=== PATIENT | female | born 1960 | race Caucasian/White ===

== ENCOUNTER 2018-01-18 23:02 | Inpatient (IN) | payer MEDICARE, OTHER ==
[2018-01-18] MEDS ORDERED: NORMAL SALINE 500 ML IV ONE (23:21)
[2018-01-18] MEDS ORDERED: HYDROMORPHONE HCL INJ/PF 2 MG/ML AMPULE IV ONE (23:21)
[2018-01-18] MEDS ORDERED: ONDANSETRON HCL INJ/PF 4 MG/2 ML SDV IV ONE (23:21)
--- NOTE | 2018-01-18 23:24 | ER Document Report ---
ED General - General Chief Complaint: Vomiting Stated Complaint: ABDOMINAL PAIN Time Seen by Provider: 01/18/18 23:13 Notes: Patient is 57-year-old female who presents with complaint of abdominal pain for approximately 1 week. She is followed by Dr. Flanagan's primary care doctor locally. Her GI doctors in [place]. She has history of Crohn's disease. She has a history of some internal fistulas. She does have a ileostomy. She denies recent fevers but has felt unwell. Today she started having a lot of vomiting. She is currently on Septra because of her history of fistulas. She denies any blood in her ostomy bag. She has pain is mostly epigastric. She says that it is intermittent. No other complaints at this time. TRAVEL OUTSIDE OF THE [place] IN LAST 30 DAYS: No - Related Data Allergies/Adverse Reactions: No Known Drug Allergies Allergy (Verified 11/21/11 09:36) Past Medical History - Social History Smoking Status: Unknown if Ever Smoked Frequency of alcohol use: None Drug Abuse: None Family History: None, Reviewed & Not Pertinent Pulmonary Medical History: Denies: Hx Tuberculosis Neurological Medical History: Denies: Hx Seizures GI Medical History: Reports: Hx Crohn's Disease Past Surgical History: Reports: Hx Abdominal Surgery, Hx Bowel Surgery, Hx Cholecystectomy, Hx Hysterectomy - total, Hx Ileostomy. Denies: Hx Pacemaker - Immunizations Hx Diphtheria, Pertussis, Tetanus Vaccination: Yes Review of Systems - Review of Systems Notes: My Normal Review Basic REVIEW OF SYSTEMS: CONSTITUTIONAL : Denies fever, chills, or sweats. Denies recent illness. EENT: Denies eye, ear, throat, or mouth pain or symptoms. Denies nasal or sinus congestion. CARDIOVASCULAR: Denies chest pain. RESPIRATORY: Denies cough, cold, or chest congestion. Denies shortness of breath, difficulty breathing, or wheezing. GASTROINTESTINAL: Abdominal pain. Vomiting. GENITOURINARY: Denies difficulty urinating, painful urination, burning, frequency, or blood in urine. MUSCULOSKELETAL: Denies neck or back pain or joint pain or swelling. SKIN: Denies rash or skin lesions. NEUROLOGICAL: Denies altered mental status or loss of consciousness. Denies headache. Denies weakness or paralysis or loss of use of either side. Denies problems with gait or speech. Denies sensory or motor loss. ALL OTHER SYSTEMS REVIEWED AND NEGATIVE. Physical Exam - Vital signs Vitals: Resp 17 01/19/18 01:00 - Notes Notes: General Appearance: Well nourished, alert, cooperative, no acute distress, mild to moderate obvious discomfort. Vitals: reviewed, See vital signs table. Head: no swelling or tenderness to the head Eyes: PERRL, EOMI, Conjuctiva clear Mouth: No decreasd moisture Lungs: No wheezing, No rales, No rhonci, No accessory muscle use, good air exchange bilaterally. Heart: Normal rate, Regular rythm, No murmur, no rub Abdomen: Normal BS, soft, No rigidity, mild epigastric abdominal tenderness outpatient, No guarding, no rebound, ileostomy bag in left lower quadrant. Normal brown stool coming from ileostomy. No gross blood in ileostomy bag. Extremities: strength 5/5 in all extremities, good pulses in all extremities, no swelling or tenderness in the extremities, no edema. Skin: warm, dry, appropriate color, no rash Neuro: speech clear, oriented x 3, normal affect, responds appropriately to questions. Course - Re-evaluation Re-evalutation: 01/19/18 03:02 On reevaluation patient says she feels much improved. She looks well. She says she does not have any further pain and no longer feels nauseous. Her CT scan shows evidence of a small bowel ileus versus partial incomplete obstruction. I think obstruction is less likely being the patient was able to tolerate all her oral contrast and continues to have good output from her ostomy. 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 She does not have a leukocytosis. Biggest concern at this time is that she does have significant hyponatremia with some renal sufficiency. I therefore feel that she needs admission for further rehydration and correction of her sodium. I did speak with the patient's primary care doctor, Dr. Flanagan, who agrees with the patient but requested also put in a consult for surgery. I have ordered a consult for surgery. Currently the patient's abdomen is soft and she is no longer vomiting. Patient will be admitted to Dr. Flanagan with consult surgery as he requested. Dictation of this chart was performed using voice recognition software; therefore, there may be some unintended grammatical errors. - Vital Signs Vital signs: Temp Pulse Resp BP Pulse Ox 23 H 120/78 96 01/19/18 01:12 01/19/18 01:12 01/19/18 01:12 - Laboratory Result Diagrams: 01/18/18 22:35 01/18/18 22:35 Laboratory results interpreted by me: 01/18/18 01/18/18 22:35 22:35 RBC 3.35 L Hct 33.1 L MCV 99 H MCH 36.0 H MCHC 36.5 H RDW 17.5 H Plt Count 617 H Seg Neuts % (Manual) 95 H Lymphocytes % (Manual) 2 L Abs Lymphs (Manual) 0.2 L Sodium 121.2 L Potassium 5.1 H Chloride 76 L BUN 36 H Creatinine 2.15 H Est GFR ( Amer) 28 L Est GFR (Non-Af Amer) 23 L Glucose 213 H Calcium 10.5 H Total Protein 8.5 H Albumin 5.3 H Lipase 303.7 H Discharge - Discharge Clinical Impression: Hyponatremia Abdominal pain Qualifiers: Abdominal location: unspecified location Qualified Code(s): R10.9 - Unspecified abdominal pain Vomiting Qualifiers: Vomiting type: unspecified Vomiting Intractability: non-intractable Nausea presence: with nausea Qualified Code(s): R11.2 - Nausea with vomiting, unspecified Condition: Stable Disposition: ADMITTED INPATIENT Admitting Provider: Flanagan Unit Admitted: Telemetry
[2018-01-18 23:39] LABS: HEMATOCRIT 33.1 % (36.0-47.0); HEMOGLOBIN 12.1 g/dL (12.0-15.5); MEAN CORPUSCULAR HGB CONC 36.5 g/dL (32.0-36.0); MEAN CORPUSCULAR VOLUME 99 fl (80-97); PLATELET COUNT 617 10^3/uL (150-450); RED BLOOD COUNT 3.35 10^6/uL (3.72-5.28); RED CELL DISTRIBUTION WIDTH 17.5 % (11.5-14.0); WHITE BLOOD COUNT 7.9 10^3/uL (4.0-10.5)
[2018-01-18 23:50] LABS: ALANINE AMINOTRANSFERASE 29 U/L (9-52); ALBUMIN 5.3 g/dL (3.5-5.0); ALKALINE PHOSPHATASE 63 U/L (38-126); ANION GAP 19 (5-19); ASPARTATE AMINO TRANSFERASE 27 U/L (14-36); BILIRUBIN,DIRECT 0.3 mg/dL (0.0-0.4); BILIRUBIN,TOTAL 0.5 mg/dL (0.2-1.3); BLOOD UREA NITROGEN 36 mg/dL (7-20); CALCIUM 10.5 mg/dL (8.4-10.2); CARBON DIOXIDE 26 mmol/L (22-30); CHLORIDE 76 mmol/L (98-107); GLUCOSE 213 mg/dL (75-110); LIPASE 303.7 U/L (23-300); POTASSIUM 5.1 mmol/L (3.6-5.0); TOTAL PROTEIN 8.5 g/dL (6.3-8.2)
[2018-01-19 00:05] LABS: SODIUM 121.2 mmol/L (137-145)
[2018-01-19 00:22] LABS: ABSOLUTE LYMPHOCYTES# (MANUAL) 0.2 10^3/uL (0.5-4.7); ABSOLUTE MONOCYTES # (MANUAL) 0.2 10^3/uL (0.1-1.4); ABSOLUTE NEUTROPHILS# (MANUAL) 7.5 10^3/uL (1.7-8.2); BASOPHILS % (MANUAL) 0 % (0-2); EOSINOPHILS % (MANUAL) 0 % (0-6); LYMPHOCYTES % (MANUAL) 2 % (13-45); MONOCYTES % (MANUAL) 3 % (3-13); SEGMENTED NEUTROPHILS % (MAN) 95 % (42-78); TOTAL CELLS COUNTED 100; TOXIC GRANULATION SLIGHT
[2018-01-19 00:24] LABS: ANISOCYTOSIS 1+
[2018-01-19 00:26] LABS: POLYCHROMASIA SLIGHT
[2018-01-19 00:28] LABS: PLATELET COMMENT INCREASED; PLATELET LARGE PRESENT
--- NOTE | 2018-01-19 02:50 | RADIOLOGY REPORT (SQ) ---
EXAM DESCRIPTION: CT ABD/PELVIS WITH IV ORAL CLINICAL HISTORY: 57 years Female, abdominal pain with history of fistulas and crohns COMPARISON: None. TECHNIQUE: 69 mL Isovue-370 IV contrast. Coronal and sagittal reformat. This exam was performed according to our departmental dose-optimization program, which includes automated exposure control, adjustment of the mA and/or kV according to patient size and/or use of iterative reconstruction technique. Limitation: As below. FINDINGS: Fistula and/or scar between the colon and skin post posterior to the rectum, images 57-65 of series 3. Nonopacified bowel in the pelvis decreases sensitivity-specificity. Mildly dilated small bowel with air-fluid levels in the left paracentral abdomen. Possible adhesive disease of small bowel density anterior lower abdominal and pelvic wall. Bowel suture of the mid pelvis and left paracentral abdomen. Ostomy site of the left paracentral pelvic wall. Minimal bibasal atelectasis or scar. Cholecystectomy clips. Atherosclerosis. Likely benign bilateral renal cysts measuring up to 2.7 cm on the left. Moderately distended urinary bladder. Uterus surgically absent. Inferior thorax, liver, pancreas, spleen, adrenals, renal system, lymphatics, vasculature, and musculoskeleton appear otherwise unremarkable. IMPRESSION: 1. Enterocutaneous fistula/scar of the posterior pelvis. 2. Small bowel ileus or low-grade partial obstruction. Adhesive disease. Partial colectomy.
[2018-01-19] MEDS ORDERED: ACETAMINOPHEN 325 MG TABLET PO PRN (03:09)
--- NOTE | 2018-01-19 04:13 | PDOC CONSULTATION ---
Consultation Consult Date: 01/19/18 Attending physician:: NUPUR COTE Consult reason:: ileus History of Present Illness Admission Date/PCP: 01/19/18 03:13 NUPUR COTE MD History of Present Illness: ROQUE MULLER is a 57 year old female with long history of Crohn's Disease has been dizzy in the past weak and very weak with nausea past 3 days. Ileostomy also has clear diarrheic fluid past week. She is post colon resection and [facility] Also had bx of left lay-anal fistula at [facility] last Aug which was + for Crohn's. This is still drauning and has a follow up at [facility] February 17. Had a CT scan of abd/pelvis which showed ileus though ileostomy has been draining. Past Medical History Pulmonary Medical History: Denies: Tuberculosis Neurological Medical History: Denies: Seizures GI Medical History: Reports: Crohn's Disease Past Surgical History Past Surgical History: Reports: Cholecystectomy, Hysterectomy - total, Ileostomy , Other - colostomy in 2004 then colon resection and ileostomy in 2012 at [facility] Denies: Pacemaker Social History Smoking Status: Current Every Day Smoker Cigarettes Packs Per Day: 0.5 Frequency of Alcohol Use: Rare Hx Recreational Drug Use: No Hx Prescription Drug Abuse: No Family History Family History: None, Reviewed & Not Pertinent Parental Family History Reviewed: Yes Children Family History Reviewed: No Sibling(s) Family History Reviewed.: No Medication/Allergy Home Medications: Sertraline HCl [Zoloft] 50 mg PO DAILY 09/17/11 Loperamide HCl [Loperamide] 2 mg PO Q12 11/21/11 Mercaptopurine 50 mg PO DAILY 11/21/11 Flonase Nasal [place] 50 Mcg/[place] 1 spray NASL BID 11/23/11 Sodium Bicarbonate 650 mg Tablet 1 tab PO BID 11/23/11 Hydrocodone/Acetaminophen [Hydrocodon-Acetaminophen 5-325] 1 each PO Q4 PRN #15 tablet 08/02/16 Ciprofloxacin HCl [Cipro 500 mg Tablet] 500 mg PO BID #20 tablet 08/05/16 Hydrocodone/Acetaminophen [[place] 5-325 mg Tablet] 1 tab PO Q6 #10 tablet Nystatin 15 gm TP QID #1 cream..g. 08/21/16 Oxycodone HCl/Acetaminophen [Percocet 5-325 mg Tablet] 1 - 2 tab PO Q4H PRN #15 tablet 08/21/16 Allergies/Adverse Reactions: No Known Drug Allergies Allergy (Verified 11/21/11 09:36) Review of Systems Constitutional: PRESENT: anorexia, weakness Eyes: PRESENT: other - no visual/hearing canges Cardiovascular: PRESENT: other - no chest pains/cough Gastrointestinal: PRESENT: nausea Genitourinary: PRESENT: other - no dysuria Musculoskeletal: PRESENT: muscle weakness Integumentary: PRESENT: wounds - anal fistula/sinus Neurological: PRESENT: dizziness Psychiatric: PRESENT: anxiety Endocrine: PRESENT: other - no polyuria Hematologic/Lymphatic: PRESENT: other - no easy bruising Physical Exam Vital Signs: Temp Pulse Resp BP Pulse Ox 23 H 120/78 96 01/19/18 01:12 01/19/18 01:12 01/19/18 01:12 General appearance: PRESENT: thin Head exam: PRESENT: atraumatic, normocephalic Eye exam: PRESENT: conjunctiva pink Mouth exam: PRESENT: dry mucosa Neck exam: PRESENT: full ROM Respiratory exam: PRESENT: clear to auscultation quita Cardiovascular exam: PRESENT: RRR Pulses: PRESENT: normal radial pulses Vascular exam: PRESENT: normal capillary refill GI/Abdominal exam: PRESENT: soft, other - ileostomy appears to be functioning Rectal exam: PRESENT: other - rectum resected. Has a chronic draining sinus due to Chron's which is being followed at [facility] Psychiatric exam: PRESENT: appropriate affect Skin exam: PRESENT: normal color, warm Results Impressions: Abdomen/Pelvis CT 01/18/18 23:20 IMPRESSION: 1. Enterocutaneous fistula/scar of the posterior pelvis. 2. Small bowel ileus or low-grade partial obstruction. Adhesive disease. Partial colectomy. Assessment & Plan - Diagnosis (1) Ileus Is this a current diagnosis for this admission?: Yes (2) Chronic perirectal sinus Is this a current diagnosis for this admission?: Yes - Time Time Spent: 30 to 50 Minutes - Plan Summary Plan Summary: Correct electrolytes Ileostomy appears to be functioning Can start clear liquids and advance as tolerated Will follow as needed
[2018-01-19] MEDS ORDERED: INFLUENZA ADLT QUAD (36MOS+) 2017-18 VAC 0.5 ML SYR IM PRN (05:13)
[2018-01-19] MEDS: NORMAL SALINE 1000 ML 1,000 ML IV PRN ×3 (05:28→16:13)
[2018-01-19] MEDS: ONDANSETRON HCL INJ/PF 4 MG/2 ML SDV IV PRN ×3 (05:28→22:00)
[2018-01-19 05:50] LABS: URINE CREATININE 68.6 mg/dL (15-278)
[2018-01-19 06:12] LABS: URINE SODIUM < 5 mmol/L (30-90)
[2018-01-19] MEDS: HYDROMORPHONE HCL INJ/PF 2 MG/ML AMPULE IV PRN ×2 (06:30→20:28)
[2018-01-19] MEDS ORDERED: CIPROFLOXACIN 400 MG/D5W RTU 400 MG/200 ML RTUPB IV ONE (09:00)
--- NOTE | 2018-01-19 10:50 | PDOC H&P ---
History of Present Illness Admission Date/PCP: 01/19/18 03:13 NUPUR COTE MD Patient complains of: Abdominal pain nausea vomiting History of Present Illness: This 57-year-old females with a significant history of the Crohn's disease with the rectovaginal fistula and multiple evaluation done including the patient was surgery performed at the [facility] patient seen by the locally Dr. Ceballos also seen by Dr. Mahmood the [facility]And [facility] and recurrent urinary tract infections who ileostomy bagCame to the emergency department with the nausea vomiting and abdominal pain and patient underwent for the CT abdomen pelvis with psoas the ileus versus partial obstructions and patient's sodium is only 120 I saw the patient in the floor patients feeling better but still been feeling dizzy when she patients move patient's abdominal pain is currently all stable Patient's denied any chest pain denied any shortness of the breath Patient seen by general surgery and suggest the start on a clear liquid diet Past Medical History Cardiac Medical History: Reports: Hypertension Pulmonary Medical History: Denies: Tuberculosis Neurological Medical History: Denies: Seizures Renal/ Medical History: Reports: Chronic Kidney Disease GI Medical History: Reports: Crohn's Disease, Gastroesophageal Reflux Disease Psychiatric Medical History: Reports: Depression Past Surgical History Past Surgical History: Reports: Cholecystectomy, Hysterectomy - total, Ileostomy , Other - colostomy in 2004 then colon resection and ileostomy in 2012 at [place] Denies: Pacemaker Social History Smoking Status: Current Every Day Smoker Cigarettes Packs Per Day: 0.5 Number of Years Smokin Frequency of Alcohol Use: None Hx Recreational Drug Use: No Drugs: None Hx Prescription Drug Abuse: No Family History Family History: None, Reviewed & Not Pertinent Parental Family History Reviewed: Yes Children Family History Reviewed: Yes Sibling(s) Family History Reviewed.: Yes Medication/Allergy Allergies/Adverse Reactions: No Known Drug Allergies Allergy (Verified 11/21/11 09:36) Review of Systems Constitutional: PRESENT: fatigue, weakness. ABSENT: chills, fever(s), headache( s), weight gain, weight loss Eyes: ABSENT: visual disturbances Ears: ABSENT: hearing changes Cardiovascular: ABSENT: chest pain, dyspnea on exertion, edema, orthropnea, palpitations Respiratory: ABSENT: cough, hemoptysis Gastrointestinal: PRESENT: abdominal pain, nausea, vomiting. ABSENT: constipation, diarrhea, hematemesis, hematochezia Genitourinary: ABSENT: dysuria, hematuria Musculoskeletal: ABSENT: joint swelling Integumentary: ABSENT: rash, wounds Neurological: PRESENT: dizziness. ABSENT: abnormal gait, abnormal speech, confusion, focal weakness, syncope Psychiatric: ABSENT: anxiety, depression, homidical ideation, suicidal ideation Endocrine: ABSENT: cold intolerance, heat intolerance, menstrual abnormalities, polydipsia, polyuria Hematologic/Lymphatic: ABSENT: easy bleeding, easy bruising, lymphadenopathy Physical Exam Vital Signs: Temp Pulse Resp BP Pulse Ox 98.7 F 75 18 97/73 L 99 01/19/18 07:14 01/19/18 07:14 01/19/18 07:14 01/19/18 07:14 01/19/18 07:14 Intake & Output 01/18/18 01/19/18 01/20/18 06:59 06:59 06:59 Intake Total 100 Balance 100 Weight 57.6 kg General appearance: PRESENT: no acute distress, well-developed, well-nourished Head exam: PRESENT: atraumatic, normocephalic Eye exam: PRESENT: conjunctiva pink, EOMI, PERRLA. ABSENT: scleral icterus Ear exam: PRESENT: normal external ear exam Mouth exam: PRESENT: moist, tongue midline Neck exam: PRESENT: full ROM. ABSENT: carotid bruit, JVD, lymphadenopathy, thyromegaly Respiratory exam: PRESENT: clear to auscultation quita Cardiovascular exam: PRESENT: RRR. ABSENT: diastolic murmur, rubs, systolic murmur Pulses: PRESENT: normal dorsalis pedis pul, +2 pedal pulses bilateral Vascular exam: PRESENT: normal capillary refill GI/Abdominal exam: PRESENT: normal bowel sounds, soft. ABSENT: distended, guarding, mass, organolmegaly, rebound, tenderness Additonal comments: Ileostomy bag is functioning Rectal exam: PRESENT: deferred Extremities exam: ABSENT: pedal edema Musculoskeletal exam: PRESENT: ambulatory Neurological exam: PRESENT: alert, awake, oriented to person, oriented to place , oriented to time, oriented to situation, CN II-XII grossly intact. ABSENT: motor sensory deficit Psychiatric exam: PRESENT: appropriate affect, normal mood. ABSENT: homicidal ideation, suicidal ideation Skin exam: PRESENT: dry, intact, warm. ABSENT: cyanosis, rash Results Laboratory Results: 01/19/18 01/19/18 03:46 08:20 Urine Osmolality 291 L Stool Occult Blood POSITIVE Impressions: Abdomen/Pelvis CT 01/18/18 23:20 IMPRESSION: 1. Enterocutaneous fistula/scar of the posterior pelvis. 2. Small bowel ileus or low-grade partial obstruction. Adhesive disease. Partial colectomy. Assessment & Plan - Diagnosis (1) Abdominal pain Qualifiers: Abdominal location: unspecified location Qualified Code(s): R10.9 - Unspecified abdominal pain Is this a current diagnosis for this admission?: Yes Plan: With this ongoing problem we consult the general surgery with this possible partial small bowel obstructions versus ileus and also consult the GI for further evaluations will keep the patient on n.p.o. (2) Crohns disease Qualifiers: Digestive disease complication type: with fistula Is this a current diagnosis for this admission?: Yes Plan: We will consult the Dr. Coombs used to see the patient in the past (3) Rectovaginal fistula Is this a current diagnosis for this admission?: Yes Plan: Patient have extensive evaluations done currently see her Dr. Mahmood and also seen by the [facility] (4) Acute renal failure Qualifiers: Acute renal failure type: unspecified Qualified Code(s): N17.9 - Acute kidney failure, unspecified Is this a current diagnosis for this admission?: Yes Plan: We consulted Dr. Blanchard continues IV fluid (5) Hyponatremia Is this a current diagnosis for this admission?: Yes Plan: Most likely a persistent nausea vomiting with some mild dehydration's start the patient on IV fluid (6) Ileus Is this a current diagnosis for this admission?: Yes Plan: Keep her n.p.o. and follow with the surgery (7) Vomiting Qualifiers: Vomiting type: unspecified Vomiting Intractability: non-intractable Nausea presence: with nausea Qualified Code(s): R11.2 - Nausea with vomiting, unspecified Is this a current diagnosis for this admission?: Yes Plan: Continuous Zofran as needed - Time Time Spent: 30 to 50 Minutes Medications reviewed and adjusted accordingly: Yes Anticipated discharge: Home Within: Other - Inpatient Certification Medical Necessity: Need Close Monitoring Due to Risk of Patient Decompensation, Need For IV Fluids, Need for IV Antibiotics Post Hospital Care: D/C Manager Analysis Documentation - Plan Summary Plan Summary: Admit the telemetry bed discussed with the patient and the nursing staff see other MD orders
[2018-01-19] MEDS: PANTOPRAZOLE SODIUM 40 MG VIAL IV SCH ×2 (10:58→21:59)
[2018-01-19] MEDS: ENOXAPARIN SODIUM INJ 30 MG/0.3 ML DISP.SYRIN SUBCUT SCH (10:59)
[2018-01-19 12:09] LABS: ANION GAP 12 (5-19); BLOOD UREA NITROGEN 29 mg/dL (7-20); CALCIUM 9.4 mg/dL (8.4-10.2); CARBON DIOXIDE 26 mmol/L (22-30); CHLORIDE 87 mmol/L (98-107); GLUCOSE 111 mg/dL (75-110); SODIUM 124.6 mmol/L (137-145)
[2018-01-19 12:25] LABS: POTASSIUM 3.8 mmol/L (3.6-5.0)
--- NOTE | 2018-01-19 15:10 | PDOC CONSULTATION ---
Consultation Consult Date: 01/19/18 Consult reason:: ARF History of Present Illness Admission Date/PCP: 01/19/18 03:13 NUPUR COTE MD Patient complains of: Diarrhea for a week History of Present Illness: Ms. Massiel Yancey is a 57 year old female with significant history of the Crohn's disease with the rectovaginal fistula and multiple evaluation done including the patient was surgery performed at the [place] patient seen by the locally Dr. Coombs and also seen by Dr. Mahmood the FISH BAIT PROCESSING SUPERVISOR. Recently seen by Dr. lópez at the [facility] with ongoing problems with this fistula and recurrent urinary tract infections. Has a ileostomy bag due to the Crohn's. Came to the emergency department after having a week long of watery diarrhea with nausea x2 days, vomiting once and abdominal pain. She has been drinking some water over the past few days, but has not been eating well. In the ER the patient underwent a CT of abdomen pelvis with psoas the ileus versus partial obstructions. No hydronephrosis was seen. Patient's labs show a sodium of only 121 and a creatinine of 2.1. Patient was seen by general surgery and suggest to start on a clear liquid diet. She also has been receiving NS at a rate of 125mL/h. Last repeat sodium was 124, potassium was 3.8 and creatinine was 1.7. She currently denies fevers or chills. Denies decreased decreased urination, was having burning urination until being treated outpatient for a UTI. Past Medical History Pulmonary Medical History: Denies: Tuberculosis Neurological Medical History: Denies: Seizures GI Medical History: Reports: Crohn's Disease, Gastroesophageal Reflux Disease Psychiatric Medical History: Reports: Depression Past Surgical History Past Surgical History: Reports: Cholecystectomy, Hysterectomy - total, Ileostomy , Other - colostomy in 2004 then colon resection and ileostomy in 2013 at [facility] Denies: Pacemaker Social History Smoking Status: Current Every Day Smoker Cigarettes Packs Per Day: 0.5 Number of Years Smokin Frequency of Alcohol Use: None Hx Recreational Drug Use: No Drugs: None Hx Prescription Drug Abuse: No Family History Parental Family History Reviewed: No Children Family History Reviewed: NA Sibling(s) Family History Reviewed.: NA Medication/Allergy Home Medications: Cephalexin [Cephalexin 250 MG Tablet] 250 mg PO DAILY 01/19/18 Cyanocobalamin (Vitamin B-12) [Vitamin B-12] 1,000 mcg PO DAILY 01/19/18 L. Acidophilus/Pectin, [place] [Acidophilus Probiotic Capsule] 1 cap PO DAILY 04/03 Loperamide HCl [Loperamide] 2 mg PO DAILY 01/19/18 Mercaptopurine 75 mg PO DAILY 01/19/18 Multivit-Min/Iron/Folic/Lutein [Centrum Silver Women Tablet] 1 tab PO DAILY 04/03 Ondansetron HCl [Zofran] 4 mg PO Q6HP PRN 01/19/18 Sulfamethoxazole/Trimethoprim [Sulfamethoxazole-Tmp Ds Tablet] 1 tab PO DAILY Allergies/Adverse Reactions: No Known Drug Allergies Allergy (Verified 11/21/11 09:36) Review of Systems Constitutional: ABSENT: chills, fever(s), headache(s), weakness Eyes: ABSENT: visual disturbances Cardiovascular: ABSENT: chest pain, dyspnea on exertion, edema, orthropnea, palpitations Respiratory: ABSENT: cough, dyspnea, sputum Gastrointestinal: PRESENT: abdominal pain, diarrhea, melena, nausea, vomiting. ABSENT: constipation Genitourinary: ABSENT: difficulty urinating, dysuria Musculoskeletal: ABSENT: joint swelling, muscle weakness Neurological: ABSENT: confusion - ffffffffffffffffffffffffffff, dizziness, numbness, weakness Physical Exam Vital Signs: Temp Pulse Resp BP Pulse Ox 98.7 F 75 18 97/73 L 99 01/19/18 07:14 01/19/18 07:14 01/19/18 07:14 01/19/18 07:14 01/19/18 07:14 Intake & Output 01/18/18 01/19/18 01/20/18 06:59 06:59 06:59 Intake Total 100 Balance 100 Weight 57.6 kg General appearance: PRESENT: no acute distress, well-developed, well-nourished Mouth exam: PRESENT: moist, neck supple Neck exam: PRESENT: full ROM. ABSENT: JVD Respiratory exam: PRESENT: clear to auscultation quita. ABSENT: accessory muscle use, crackles, rales, rhonchi Cardiovascular exam: PRESENT: RRR, +S1, +S2 GI/Abdominal exam: PRESENT: hyperactive bowel sounds, soft, tenderness. ABSENT : ascites, distended, guarding, rigid Extremities exam: ABSENT: pedal edema, tenderness Musculoskeletal exam: PRESENT: normal inspection. ABSENT: tenderness Neurological exam: PRESENT: alert, awake, oriented to person, oriented to place , oriented to time, oriented to situation Psychiatric exam: PRESENT: appropriate affect, normal mood Skin exam: PRESENT: dry, intact, warm Results Laboratory Results: 01/19/18 11:40 01/19/18 01/19/18 01/19/18 03:46 08:20 11:40 Sodium 124.6 L Potassium 3.8 D Chloride 87 L Carbon Dioxide 26 Anion Gap 12 BUN 29 H Creatinine 1.74 H Est GFR ( Amer) 36 L Est GFR (Non-Af Amer) 30 L Glucose 111 H Calcium 9.4 Urine Osmolality 291 L Stool Occult Blood POSITIVE Impressions: Abdomen/Pelvis CT 01/18/18 23:20 IMPRESSION: 1. Enterocutaneous fistula/scar of the posterior pelvis. 2. Small bowel ileus or low-grade partial obstruction. Adhesive disease. Partial colectomy. Assessment & Plan - Diagnosis (1) ALEX (acute kidney injury) Plan: Non-oliguric ALEX, due to dehydration from the persistant diarrhea for a week. Other factors affecting the kidneys includes recurrent UTIs and antibiotic use. With the Ct of the abdomen/pelvis post-obstructive can be ruled out. renal system was normal according to Dr. Tripathi's reading of the abdominal/pelvic CT. Ordering magnesium to look for hypomagnesemia due to diarrhea. (2) Hyponatremia Is this a current diagnosis for this admission?: Yes Plan: Looks to be due to persistent diarrhea with some vomiting. Continue on normal saline, patient needs to be corrected at a rate no faster than 8 to 10mEQ of sodium per a 24 hours. Monitoring BMP closely (3) Abdominal pain Qualifiers: Abdominal location: unspecified location Qualified Code(s): R10.9 - Unspecified abdominal pain Is this a current diagnosis for this admission?: Yes Plan: currently being handled by surgery (4) CKD (chronic kidney disease) stage 3, GFR 30-59 ml/min Plan: was last seen in Dr. Blanchard office 04/01. Had a baseline creatinine at the time of 1.1. (5) Ileus Is this a current diagnosis for this admission?: Yes Plan: managed by surgery (6) Vomiting Qualifiers: Vomiting type: unspecified Vomiting Intractability: non-intractable Nausea presence: with nausea Qualified Code(s): R11.2 - Nausea with vomiting, unspecified Is this a current diagnosis for this admission?: Yes Plan: on corrine (7) Crohns disease Qualifiers: Digestive disease complication type: with fistula Is this a current diagnosis for this admission?: Yes - Notes Notes: Patients case and care plan was discussed with Dr. Blanchard.
[2018-01-19 16:24] LABS: ANION GAP 13 (5-19); BLOOD UREA NITROGEN 27 mg/dL (7-20); CALCIUM 9.3 mg/dL (8.4-10.2); CARBON DIOXIDE 25 mmol/L (22-30); CHLORIDE 88 mmol/L (98-107); GLUCOSE 104 mg/dL (75-110); SODIUM 125.5 mmol/L (137-145)
[2018-01-19] MEDS: CIPROFLOXACIN 400 MG/D5W RTU 400 MG/200 ML RTUPB IV SCH (22:00)
[2018-01-20] MEDS: NORMAL SALINE 1000 ML 1,000 ML IV PRN ×2 (02:15→12:09)
[2018-01-20 06:25] LABS: HEMATOCRIT 26.2 % (36.0-47.0); MEAN CORPUSCULAR HGB CONC 36.2 g/dL (32.0-36.0); MEAN CORPUSCULAR VOLUME 100 fl (80-97); PLATELET COUNT 404 10^3/uL (150-450); RED BLOOD COUNT 2.63 10^6/uL (3.72-5.28); RED CELL DISTRIBUTION WIDTH 17.4 % (11.5-14.0); WHITE BLOOD COUNT 5.4 10^3/uL (4.0-10.5)
[2018-01-20 06:26] LABS: HEMOGLOBIN 9.5 g/dL (12.0-15.5)
[2018-01-20 06:30] LABS: ALANINE AMINOTRANSFERASE 32 U/L (9-52); ALBUMIN 3.7 g/dL (3.5-5.0); ALKALINE PHOSPHATASE 47 U/L (38-126); ANION GAP 10 (5-19); ASPARTATE AMINO TRANSFERASE 22 U/L (14-36); BILIRUBIN,DIRECT 0.1 mg/dL (0.0-0.4); BILIRUBIN,TOTAL 0.3 mg/dL (0.2-1.3); BLOOD UREA NITROGEN 20 mg/dL (7-20); CALCIUM 8.9 mg/dL (8.4-10.2); CARBON DIOXIDE 22 mmol/L (22-30); CHLORIDE 96 mmol/L (98-107); GLUCOSE 79 mg/dL (75-110); POTASSIUM 4.1 mmol/L (3.6-5.0); SODIUM 127.7 mmol/L (137-145); TOTAL PROTEIN 6.2 g/dL (6.3-8.2)
[2018-01-20 08:02] LABS: OSMOLALITY,URINE 273 mOsm/kg (300-900)
--- NOTE | 2018-01-20 08:54 | PDOC PROGRESS REPORT ---
Subjective Progress Note for:: 01/20/18 Subjective:: Patient is currently doing well patient's denied any chest pain denied any shortness of the breath Patient's abdominal pain is much better's to tolerate the clear liquid without any problems and passing the gas Reason For Visit: HYPONATREMIA/ARF/ILLEUS Physical Exam Vital Signs: Temp Pulse Resp BP Pulse Ox 98.5 F 73 17 110/72 100 01/20/18 07:19 01/20/18 07:19 01/20/18 07:19 01/20/18 07:19 01/20/18 07:19 Intake & Output 01/19/18 01/20/18 01/21/18 06:59 06:59 06:59 Intake Total 100 3880 Output Total 3 Balance 100 3877 Weight 57.6 kg General appearance: PRESENT: no acute distress, well-developed, well-nourished Head exam: PRESENT: atraumatic, normocephalic Eye exam: PRESENT: conjunctiva pink, EOMI, PERRLA. ABSENT: scleral icterus Ear exam: PRESENT: normal external ear exam Mouth exam: PRESENT: moist, tongue midline Neck exam: PRESENT: full ROM. ABSENT: carotid bruit, JVD, lymphadenopathy, thyromegaly Respiratory exam: PRESENT: clear to auscultation quita Cardiovascular exam: PRESENT: RRR. ABSENT: diastolic murmur, rubs, systolic murmur Pulses: PRESENT: normal dorsalis pedis pul, +2 pedal pulses bilateral Vascular exam: PRESENT: normal capillary refill GI/Abdominal exam: PRESENT: normal bowel sounds, soft. ABSENT: distended, guarding, mass, organolmegaly, rebound, tenderness Additonal comments: Ileostomy bag is present and functioning Rectal exam: PRESENT: deferred Extremities exam: ABSENT: pedal edema Musculoskeletal exam: PRESENT: ambulatory Neurological exam: PRESENT: alert, awake, oriented to person, oriented to place , oriented to time, oriented to situation, CN II-XII grossly intact. ABSENT: motor sensory deficit Psychiatric exam: PRESENT: appropriate affect, normal mood. ABSENT: homicidal ideation, suicidal ideation Skin exam: PRESENT: dry, intact, warm. ABSENT: cyanosis, rash Results Laboratory Results: 01/20/18 05:26 01/20/18 05:26 03/05/18 03/05/18 03/05/18 03:46 08:20 11:40 WBC RBC Hgb Hct MCV MCH MCHC RDW Plt Count Sodium 124.6 L Potassium 3.8 D Chloride 87 L Carbon Dioxide 26 Anion Gap 12 BUN 29 H Creatinine 1.74 H Est GFR ( Amer) 36 L Est GFR (Non-Af Amer) 30 L Glucose 111 H Calcium 9.4 Magnesium Total Bilirubin AST ALT Alkaline Phosphatase Total Protein Albumin Urine Osmolality 273 L Stool Occult Blood POSITIVE 01/19/18 01/19/18 01/20/18 11:40 15:57 05:26 WBC 5.4 RBC 2.63 L Hgb 9.5 L D Hct 26.2 L MCV 100 H MCH 36.0 H MCHC 36.2 H RDW 17.4 H Plt Count 404 Sodium 125.5 L Potassium 4.0 Chloride 88 L Carbon Dioxide 25 Anion Gap 13 BUN 27 H Creatinine 1.65 H Est GFR ( Amer) 39 L Est GFR (Non-Af Amer) 32 L Glucose 104 Calcium 9.3 Magnesium 1.9 Total Bilirubin AST ALT Alkaline Phosphatase Total Protein Albumin Urine Osmolality Stool Occult Blood 01/20/18 05:26 WBC RBC Hgb Hct MCV MCH MCHC RDW Plt Count Sodium 127.7 L Potassium 4.1 Chloride 96 L Carbon Dioxide 22 Anion Gap 10 BUN 20 Creatinine 1.30 H Est GFR ( Amer) 51 L Est GFR (Non-Af Amer) 42 L Glucose 79 Calcium 8.9 Magnesium Total Bilirubin 0.3 AST 22 ALT 32 Alkaline Phosphatase 47 Total Protein 6.2 L Albumin 3.7 Urine Osmolality Stool Occult Blood Impressions: Abdomen/Pelvis CT 01/18/18 23:20 IMPRESSION: 1. Enterocutaneous fistula/scar of the posterior pelvis. 2. Small bowel ileus or low-grade partial obstruction. Adhesive disease. Partial colectomy. Assessment & Plan - Diagnosis (1) Abdominal pain Qualifiers: Abdominal location: unspecified location Qualified Code(s): R10.9 - Unspecified abdominal pain Is this a current diagnosis for this admission?: Yes Plan: Currently all resolving the ileus (2) Crohns disease Qualifiers: Digestive disease complication type: with fistula Is this a current diagnosis for this admission?: Yes Plan: Will wait for the GI consultants (3) Rectovaginal fistula Is this a current diagnosis for this admission?: Yes Plan: Patient have extensive evaluations done currently see her Dr. Mahmood and also seen by the [facility] (4) Acute renal failure Qualifiers: Acute renal failure type: unspecified Qualified Code(s): N17.9 - Acute kidney failure, unspecified Is this a current diagnosis for this admission?: Yes Plan: Currently all improving (5) Hyponatremia Is this a current diagnosis for this admission?: Yes Plan: Currently all improving (6) Ileus Is this a current diagnosis for this admission?: Yes Plan: Advance to full liquid to soft diet (7) Vomiting Qualifiers: Vomiting type: unspecified Vomiting Intractability: non-intractable Nausea presence: with nausea Qualified Code(s): R11.2 - Nausea with vomiting, unspecified Is this a current diagnosis for this admission?: Yes Plan: Currently all resolved - Time Time Spent with patient: 15-24 minutes Medications reviewed and adjusted accordingly: Yes Anticipated discharge: Other Within: Other - Inpatient Certification Medical Necessity: Need Close Monitoring Due to Risk of Patient Decompensation Post Hospital Care: D/C Sweeping Compound Blender Documentation - Plan Summary Plan Summary: Currently all improving the ileus increase the diet
[2018-01-20] MEDS: CIPROFLOXACIN 400 MG/D5W RTU 400 MG/200 ML RTUPB IV SCH (09:28)
[2018-01-20] MEDS: PANTOPRAZOLE SODIUM 40 MG VIAL IV SCH ×2 (09:29→21:28)
[2018-01-20] MEDS: ENOXAPARIN SODIUM INJ 30 MG/0.3 ML DISP.SYRIN SUBCUT SCH (09:30)
[2018-01-20] MEDS: CYANOCOBALAMIN (VITAMIN B-12) 1,000 MCG TABLET PO SCH (10:26)
[2018-01-20] MEDS: LACTOBACILLUS ACIDOPHILUS 250 MG TAB PO SCH (10:27)
--- NOTE | 2018-01-20 10:31 | RADIOLOGY REPORT (SQ) ---
EXAM DESCRIPTION: ABDOMEN 2 VIEWS COMPLETED DATE/TIME: 01/20/2018 10:11 am REASON FOR STUDY: illeus COMPARISON: Abdominal and pelvic CT scan dated 01/19/2018 NUMBER OF VIEWS: Two views. TECHNIQUE: Supine and erect/decubitus radiographic images of the abdomen acquired. LIMITATIONS: None. FINDINGS: FREE AIR: None. No abnormal gas collections. LUNG BASES: Clear. BOWEL GAS PATTERN: Nonobstructive pattern. No dilated loops or air fluid levels. CALCIFICATIONS: No suspicious calcifications. SOFT TISSUES: No gross mass or suggestion of organomegaly. HARDWARE: Ostomy is identified in the left pelvis. Surgical clips are identified in the right mid ab domen. BONES: No acute fracture. No worrisome bone lesions. OTHER: No other significant finding. IMPRESSION: NO RADIOGRAPHIC EVIDENCE FOR ACUTE ABDOMINAL DISEASE. TECHNICAL DOCUMENTATION: JOB ID: [id number] [employer]- All Rights Reserved Reading location - IP/workstation name: [email or web address]
[2018-01-20] MEDS ORDERED: METHYLPREDNISOLONE INJ 40 MG/1 ML SDV IV ONE (12:30)
--- NOTE | 2018-01-20 13:53 | PDOC PROGRESS REPORT ---
Subjective Progress Note for:: 01/20/18 Reason For Visit: Was seen today.Admitted or partial bowel obstruction likely from adhesive disease and has responded very well to conservative management. Also admitting diagnosis included Orthostatic hypotension, ALEX, Hyponatremia. Her abdominal pain is resolved and she is tolerating some clear liquids as of this AM. Her Illeostomy bag is showing some formed elements. Labs and meds were reviewed with her. Physical Exam Vital Signs: Temp Pulse Resp BP Pulse Ox 98.4 F 76 17 128/67 H 96 01/20/18 11:03 01/20/18 11:03 01/20/18 11:03 01/20/18 11:03 01/20/18 11:03 Intake & Output 01/19/18 01/20/18 01/21/18 06:59 06:59 06:59 Intake Total 100 3880 Output Total 3 Balance 100 3877 Weight 57.6 kg General appearance: PRESENT: no acute distress Respiratory exam: PRESENT: clear to auscultation quita. ABSENT: crackles Cardiovascular exam: PRESENT: RRR, +S1, +S2 GI/Abdominal exam: PRESENT: normal bowel sounds, soft. ABSENT: ascites, distended, guarding, rigid, tenderness Extremities exam: ABSENT: pedal edema Neurological exam: PRESENT: awake, oriented to person, oriented to place Skin exam: PRESENT: dry. ABSENT: erythema, mottled Results Laboratory Results: 01/20/18 05:26 01/20/18 05:26 01/19/18 01/19/18 01/19/18 03:46 11:40 15:57 WBC RBC Hgb Hct MCV MCH MCHC RDW Plt Count Sodium 125.5 L Potassium 4.0 Chloride 88 L Carbon Dioxide 25 Anion Gap 13 BUN 27 H Creatinine 1.65 H Est GFR ( Amer) 39 L Est GFR (Non-Af Amer) 32 L Glucose 104 Calcium 9.3 Magnesium 1.9 Total Bilirubin AST ALT Alkaline Phosphatase Total Protein Albumin Urine Osmolality 273 L 01/20/18 01/20/18 05:26 05:26 WBC 5.4 RBC 2.63 L Hgb 9.5 L D Hct 26.2 L MCV 100 H MCH 36.0 H MCHC 36.2 H RDW 17.4 H Plt Count 404 Sodium 127.7 L Potassium 4.1 Chloride 96 L Carbon Dioxide 22 Anion Gap 10 BUN 20 Creatinine 1.30 H Est GFR ( Amer) 51 L Est GFR (Non-Af Amer) 42 L Glucose 79 Calcium 8.9 Magnesium Total Bilirubin 0.3 AST 22 ALT 32 Alkaline Phosphatase 47 Total Protein 6.2 L Albumin 3.7 Urine Osmolality Impressions: Abdomen/Pelvis CT 01/18/18 23:20 IMPRESSION: 1. Enterocutaneous fistula/scar of the posterior pelvis. 2. Small bowel ileus or low-grade partial obstruction. Adhesive disease. Partial colectomy. Abdomen X-Ray 01/20/18 00:00 IMPRESSION: NO RADIOGRAPHIC EVIDENCE FOR ACUTE ABDOMINAL DISEASE. Assessment & Plan - Diagnosis (1) Diarrhea Plan: From her partial bowel obstruction.Resolving. (2) ALEX (acute kidney injury) Plan: Resolving.She was clinically dehydrated. She has now been fluid resuscitated and her BP and her orthostasis are stable. Will continue on current management. (3) CKD (chronic kidney disease) stage 3, GFR 30-59 ml/min Plan: Base line.Monitor. (4) Hyponatremia Is this a current diagnosis for this admission?: Yes Plan: She is improving. Will change IV NS at 100 cc/hr. (5) Ileus Is this a current diagnosis for this admission?: Yes Plan: from partial bowel obstruction. Resolving.
[2018-01-20] MEDS: CEFTRIAXONE SODIUM 1,000 MG in NORMAL SALINE 100 ML IV SCH (17:11)
[2018-01-20] MEDS ORDERED: HYDROMORPHONE HCL 2 MG TABLET PO PRN (23:35)
[2018-01-21 05:13] LABS: ABSOLUTE EOSINOPHILS # (AUTO) 0.1 10^3/uL (0.0-0.6); ABSOLUTE LYMPHOCYTES (AUTO) 0.9 10^3/uL (0.5-4.7); ABSOLUTE MONOCYTES (AUTO) 0.4 10^3/uL (0.1-1.4); ABSOLUTE NEUT (AUTO) 4.5 10^3/uL (1.7-8.2); BASOPHILS % (AUTO) 0.4 % (0-2); EOSINOPHILS % (AUTO) 0.9 % (0-6); HEMATOCRIT 22.4 % (36.0-47.0); HEMOGLOBIN 8.1 g/dL (12.0-15.5); LYMPHOCYTES % (AUTO) 15.6 % (13-45); MEAN CORPUSCULAR HEMOGLOBIN 36.3 pg (27.0-33.4); MEAN CORPUSCULAR HGB CONC 36.1 g/dL (32.0-36.0); MEAN CORPUSCULAR VOLUME 101 fl (80-97); MONOCYTES % (AUTO) 6.3 % (3-13); PLATELET COUNT 370 10^3/uL (150-450); RED BLOOD COUNT 2.23 10^6/uL (3.72-5.28); RED CELL DISTRIBUTION WIDTH 17.4 % (11.5-14.0); SEGMENTED NEUTROPHILS % (AUTO) 76.8 % (42-78); TOTAL CELLS COUNTED % (AUTO) 100 %; WHITE BLOOD COUNT 5.9 10^3/uL (4.0-10.5)
[2018-01-21 05:28] LABS: ANION GAP 9 (5-19); BLOOD UREA NITROGEN 18 mg/dL (7-20); CALCIUM 8.6 mg/dL (8.4-10.2); CARBON DIOXIDE 20 mmol/L (22-30); CHLORIDE 104 mmol/L (98-107); GLUCOSE 77 mg/dL (75-110); POTASSIUM 4.4 mmol/L (3.6-5.0); SODIUM 132.6 mmol/L (137-145)
--- NOTE | 2018-01-21 09:55 | PDOC PROGRESS REPORT ---
Subjective Progress Note for:: 01/21/18 Subjective:: Patient is currently doing well Patient's denied any chest pain denied any shortness of the breath Patient hemoglobin is 8.1 Sodium is all stable Reason For Visit: HYPONATREMIA/ARF/ILLEUS Physical Exam Vital Signs: Temp Pulse Resp BP Pulse Ox 98.8 F 71 18 120/73 100 01/21/18 07:21 01/21/18 07:21 01/21/18 07:21 01/21/18 07:21 01/21/18 07:21 Intake & Output 01/20/18 01/21/18 01/22/18 06:59 06:59 06:59 Intake Total 3880 3875 Output Total 3 Balance 3877 3875 Weight 57.7 kg General appearance: PRESENT: no acute distress, well-developed, well-nourished Head exam: PRESENT: atraumatic, normocephalic Eye exam: PRESENT: conjunctiva pink, EOMI, PERRLA. ABSENT: scleral icterus Ear exam: PRESENT: normal external ear exam Mouth exam: PRESENT: moist, tongue midline Neck exam: PRESENT: full ROM. ABSENT: carotid bruit, JVD, lymphadenopathy, thyromegaly Respiratory exam: PRESENT: clear to auscultation quita Cardiovascular exam: PRESENT: RRR. ABSENT: diastolic murmur, rubs, systolic murmur Pulses: PRESENT: normal dorsalis pedis pul, +2 pedal pulses bilateral Vascular exam: PRESENT: normal capillary refill GI/Abdominal exam: PRESENT: normal bowel sounds, soft. ABSENT: distended, guarding, mass, organolmegaly, rebound, tenderness Rectal exam: PRESENT: deferred Extremities exam: ABSENT: pedal edema Neurological exam: PRESENT: alert, awake, oriented to person, oriented to place , oriented to time, oriented to situation, CN II-XII grossly intact. ABSENT: motor sensory deficit Psychiatric exam: PRESENT: appropriate affect, normal mood. ABSENT: homicidal ideation, suicidal ideation Skin exam: PRESENT: dry, intact, warm. ABSENT: cyanosis, rash Results Laboratory Results: 01/21/18 04:07 01/21/18 04:07 01/21/18 01/21/18 01/21/18 04:07 04:07 04:07 WBC 5.9 RBC 2.23 L Hgb 8.1 L Hct 22.4 L MCV 101 H MCH 36.3 H MCHC 36.1 H RDW 17.4 H Plt Count 370 Seg Neutrophils % 76.8 Lymphocytes % 15.6 Monocytes % 6.3 Eosinophils % 0.9 Basophils % 0.4 Absolute Neutrophils 4.5 Absolute Lymphocytes 0.9 Absolute Monocytes 0.4 Absolute Eosinophils 0.1 Absolute Basophils 0.0 Sodium 132.6 L Potassium 4.4 Chloride 104 Carbon Dioxide 20 L Anion Gap 9 BUN 18 Creatinine 1.07 Est GFR ( Amer) > 60 Est GFR (Non-Af Amer) 52 L Glucose 77 Serum Osmolality 275 Calcium 8.6 Impressions: Abdomen/Pelvis CT 01/18/18 23:20 IMPRESSION: 1. Enterocutaneous fistula/scar of the posterior pelvis. 2. Small bowel ileus or low-grade partial obstruction. Adhesive disease. Partial colectomy. Abdomen X-Ray 01/20/18 00:00 IMPRESSION: NO RADIOGRAPHIC EVIDENCE FOR ACUTE ABDOMINAL DISEASE. Assessment & Plan - Diagnosis (1) Abdominal pain Qualifiers: Abdominal location: unspecified location Qualified Code(s): R10.9 - Unspecified abdominal pain Is this a current diagnosis for this admission?: Yes Plan: Currently all better will watch for hemoglobin which is dropped from 12 to the 8.1 and guaiac stool is positive we will ask Dr. Coombs to further evaluate (2) Crohns disease Qualifiers: Digestive disease complication type: with fistula Is this a current diagnosis for this admission?: Yes Plan: Will wait for the GI consultants (3) Rectovaginal fistula Is this a current diagnosis for this admission?: Yes Plan: Patient have extensive evaluations done currently see her Dr. Mahmood and also seen by the [facility] (4) Acute renal failure Qualifiers: Acute renal failure type: unspecified Qualified Code(s): N17.9 - Acute kidney failure, unspecified Is this a current diagnosis for this admission?: Yes Plan: Currently all improving (5) Hyponatremia Is this a current diagnosis for this admission?: Yes Plan: Currently all improving (6) Ileus Is this a current diagnosis for this admission?: Yes Plan: Currently all resolved (7) Vomiting Qualifiers: Vomiting type: unspecified Vomiting Intractability: non-intractable Nausea presence: with nausea Qualified Code(s): R11.2 - Nausea with vomiting, unspecified Is this a current diagnosis for this admission?: Yes - Time Time Spent with patient: 15-24 minutes Medications reviewed and adjusted accordingly: Yes Anticipated discharge: Other Within: Other - Inpatient Certification Medical Necessity: Need Close Monitoring Due to Risk of Patient Decompensation Post Hospital Care: D/C Content Assistant Documentation - Plan Summary Plan Summary: Patients develop the Cipro allergies but okay with the Rocephin will ask Dr. Coombs to further evaluate about the ongoing anemia Stool guaiac is positive Recheck the iron study
[2018-01-21] MEDS: LACTOBACILLUS ACIDOPHILUS 250 MG TAB PO SCH (10:11)
[2018-01-21] MEDS: PANTOPRAZOLE SODIUM 40 MG VIAL IV SCH ×2 (10:11→22:06)
[2018-01-21] MEDS: CYANOCOBALAMIN (VITAMIN B-12) 1,000 MCG TABLET PO SCH (10:11)
[2018-01-21] MEDS: ENOXAPARIN SODIUM INJ 30 MG/0.3 ML DISP.SYRIN SUBCUT SCH (10:12)
[2018-01-21 10:34] LABS: ABSOLUTE RETICS # 0.017 10^6/uL (0.028-0.122); RETICULOCYTE COUNT (AUTO) 0.79 % (0.66-2.85)
--- NOTE | 2018-01-21 10:55 | PDOC PROGRESS REPORT ---
Subjective Progress Note for:: 01/21/18 Subjective:: Patient was sitting up comfortably in her bed when I came to see her. She denied having having anymore clear diarrhea. She also denied chest pain, sob, fevers, chills, nausea or vomiting. She currently says that her urination has gotten easier and she is urinating more. Reason For Visit: HYPONATREMIA/ARF/ILLEUS Physical Exam Vital Signs: Temp Pulse Resp BP Pulse Ox 98.8 F 71 18 120/73 100 01/21/18 07:21 01/21/18 07:21 01/21/18 07:21 01/21/18 07:21 01/21/18 07:21 Intake & Output 01/20/18 01/21/18 01/22/18 06:59 06:59 06:59 Intake Total 3880 3875 Output Total 3 Balance 3877 3875 Weight 57.7 kg General appearance: PRESENT: no acute distress, well-developed, well-nourished Mouth exam: PRESENT: moist, neck supple Neck exam: PRESENT: full ROM. ABSENT: JVD Respiratory exam: PRESENT: clear to auscultation quita. ABSENT: accessory muscle use, crackles, rales, rhonchi, stridor, wheezes Cardiovascular exam: PRESENT: RRR, +S1, +S2 GI/Abdominal exam: PRESENT: normal bowel sounds, soft. ABSENT: ascites, distended, guarding, rigid, tenderness Extremities exam: ABSENT: pedal edema, tenderness Musculoskeletal exam: PRESENT: normal inspection. ABSENT: tenderness Neurological exam: PRESENT: alert, awake, oriented to person, oriented to place , oriented to time, oriented to situation Psychiatric exam: PRESENT: appropriate affect, normal mood Skin exam: PRESENT: dry, intact, warm Results Laboratory Results: 01/21/18 04:07 01/21/18 04:07 01/21/18 01/21/18 01/21/18 04:07 04:07 04:07 WBC 5.9 RBC 2.23 L Hgb 8.1 L Hct 22.4 L MCV 101 H MCH 36.3 H MCHC 36.1 H RDW 17.4 H Plt Count 370 Seg Neutrophils % 76.8 Lymphocytes % 15.6 Monocytes % 6.3 Eosinophils % 0.9 Basophils % 0.4 Absolute Neutrophils 4.5 Absolute Lymphocytes 0.9 Absolute Monocytes 0.4 Absolute Eosinophils 0.1 Absolute Basophils 0.0 Retic Count (auto) Absolute Retic Sodium 132.6 L Potassium 4.4 Chloride 104 Carbon Dioxide 20 L Anion Gap 9 BUN 18 Creatinine 1.07 Est GFR ( Amer) > 60 Est GFR (Non-Af Amer) 52 L Glucose 77 Serum Osmolality 275 Calcium 8.6 01/21/18 04:07 WBC RBC Hgb Hct MCV MCH MCHC RDW Plt Count Seg Neutrophils % Lymphocytes % Monocytes % Eosinophils % Basophils % Absolute Neutrophils Absolute Lymphocytes Absolute Monocytes Absolute Eosinophils Absolute Basophils Retic Count (auto) 0.79 Absolute Retic 0.017 L Sodium Potassium Chloride Carbon Dioxide Anion Gap BUN Creatinine Est GFR ( Amer) Est GFR (Non-Af Amer) Glucose Serum Osmolality Calcium 01/19/18 08:20 Clean Catch Midstream Urine Culture - Final Enterococcus Faecalis(Group D) Staph Coagulase Negative Impressions: Abdomen/Pelvis CT 01/18/18 23:20 IMPRESSION: 1. Enterocutaneous fistula/scar of the posterior pelvis. 2. Small bowel ileus or low-grade partial obstruction. Adhesive disease. Partial colectomy. Abdomen X-Ray 01/20/18 00:00 IMPRESSION: NO RADIOGRAPHIC EVIDENCE FOR ACUTE ABDOMINAL DISEASE. Assessment & Plan - Diagnosis (1) ALEX (acute kidney injury) Plan: patient looks to be at baseline. Patient is cleared for discharge from the nephrology standpoint. Will have her follow up in two weeks as outpatient at Dr. Blanchard' office. (2) Hyponatremia Is this a current diagnosis for this admission?: Yes Plan: almost at baseline, continue fluid restriction. (3) Abdominal pain Qualifiers: Abdominal location: unspecified location Qualified Code(s): R10.9 - Unspecified abdominal pain Is this a current diagnosis for this admission?: Yes Plan: resolved (4) CKD (chronic kidney disease) stage 3, GFR 30-59 ml/min Plan: at baseline (5) Vomiting Qualifiers: Vomiting type: unspecified Vomiting Intractability: non-intractable Nausea presence: with nausea Qualified Code(s): R11.2 - Nausea with vomiting, unspecified Is this a current diagnosis for this admission?: Yes Plan: resolved (6) Crohns disease Qualifiers: Digestive disease complication type: with fistula Is this a current diagnosis for this admission?: Yes - Notes Notes: patient's case was discussed with Dr. Blanchard.
[2018-01-21 11:26] LABS: IRON(TIBC) 39.9 ug/dL (37-170)
[2018-01-21 12:10] LABS: FOLATE > 20.00 ng/mL (>2.76)
[2018-01-21] MEDS: CEFTRIAXONE SODIUM 1,000 MG in NORMAL SALINE 100 ML IV SCH (17:10)
[2018-01-21 18:09] LABS: OSMOLALITY,URINE 502 mOsm/kg (300-900)
[2018-01-21 18:19] LABS: URINE SODIUM 8 mmol/L (30-90)
--- NOTE | 2018-01-21 19:18 | PDOC CONSULTATION ---
Consultation Consult Date: 01/21/18 History of Present Illness Admission Date/PCP: 01/19/18 03:13 NUPUR COTE MD History of Present Illness: This is a 57-year-old patient was admitted to the hospital on 01/19/2018 with abdominal pain, vomiting and increased ileostomy output. On admission her sodium was 120 with a creatinine of 2.1 and a potassium of 5.1. Her liver function tests was normal. She had been feeling sick for about a week with a flulike illness. Her ileostomy output has also been more watery and increased in volume. This is despite her usual Imodium twice a day. She has been rehydrated in the hospital and her sodium is now 132 with a normal BUN and creatinine. Her hemoglobin was 12 on admission but this came down to 8.1 today. There is no obvious blood in her ileostomy though Hemoccult was positive. Overall she is feeling a lot better.She had a CAT scan on admission with contrast that showed possible scarring or fistula between the colon and the skin posterior to the rectum. There was mildly dilated small bowel loops with air-fluid levels She has a history of severe complicated Crohn's diagnosed about 8 years ago. 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 According to the patient she was having more perianal and perivulvar disease during 2016 which eventually led to admission in [place]. She had rectal stump removed and was started on Entyvio in addition to her mercaptopurine. She used to be on Cimzia. She has been doing much better since then and has been getting her Entyvio infusion on every 8 weeks in [place]. 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 Past Medical History Cardiac Medical History: Reports: Hypertension Pulmonary Medical History: Denies: Tuberculosis Neurological Medical History: Denies: Seizures Renal/ Medical History: Reports: Chronic Kidney Disease GI Medical History: Reports: Crohn's Disease, Gastroesophageal Reflux Disease Psychiatric Medical History: Reports: Depression Past Surgical History Past Surgical History: Multiple colonoscopies, cholecystectomy, hysterectomy, enterovagina and enterorectal fistula repair 2007, partial colectomy with temporary colostomy 2006, ileocolectomy with permanent ileostomy 2010 Past Surgical History: Reports: Cholecystectomy, Hysterectomy - total, Ileostomy , Other - colostomy in 2004 then colon resection and ileostomy in 2012 at [place] Denies: Pacemaker Social History Smoking Status: Current Every Day Smoker Cigarettes Packs Per Day: 0.5 Number of Years Smokin Frequency of Alcohol Use: None Hx Recreational Drug Use: No Drugs: None Hx Prescription Drug Abuse: No Family History Family History: None, Reviewed & Not Pertinent Parental Family History Reviewed: No Children Family History Reviewed: NA Sibling(s) Family History Reviewed.: NA Medication/Allergy Home Medications: Cephalexin [Cephalexin 250 MG Tablet] 250 mg PO DAILY 01/19/18 Cyanocobalamin (Vitamin B-12) [Vitamin B-12] 1,000 mcg PO DAILY 01/19/18 L. Acidophilus/Pectin, [place] [Acidophilus Probiotic Capsule] 1 cap PO DAILY 04/03 Loperamide HCl [Loperamide] 2 mg PO DAILY 01/19/18 Mercaptopurine 75 mg PO DAILY 01/19/18 Multivit-Min/Iron/Folic/Lutein [Centrum Silver Women Tablet] 1 tab PO DAILY 04/03 Ondansetron HCl [Zofran] 4 mg PO Q6HP PRN 01/19/18 Sulfamethoxazole/Trimethoprim [Sulfamethoxazole-Tmp Ds Tablet] 1 tab PO DAILY Allergies/Adverse Reactions: No Known Drug Allergies Allergy (Verified 11/21/11 09:36) Review of Systems All systems: reviewed and no additional remarkable complaints except as stated Physical Exam Vital Signs: Temp Pulse Resp BP Pulse Ox 98.5 F 66 18 113/68 100 01/21/18 15:11 01/21/18 15:11 01/21/18 15:11 01/21/18 15:11 01/21/18 15:11 Intake & Output 01/20/18 01/21/18 01/22/18 06:59 06:59 06:59 Intake Total 3880 3875 1092 Output Total 3 Balance 3877 3875 1092 Weight 57.7 kg Exam: General: Patient is alert and looks well but thin. HEENT: There is no pallor or jaundice. PERRLA. Oropharynx normal Respiratory: No chest deformity. No respiratory distress. Chest wall palpitation was unremarkable. Breath sounds were normal Cardiovascular: Heart sounds 1 and 2 normal with no murmurs. Abdominal: Not distended. Soft and nontender. Liver and spleen not palpable. She has an ileostomy in the left lower quadrant. Extremities: No edema Neurological: Alert and oriented x4. Grossly nonfocal. Normal speech Skin: No significant rash Psychological: Normal affect Results Laboratory Results: 01/21/18 04:07 01/21/18 04:07 01/21/18 01/21/18 01/21/18 04:07 04:07 04:07 WBC 5.9 RBC 2.23 L Hgb 8.1 L Hct 22.4 L MCV 101 H MCH 36.3 H MCHC 36.1 H RDW 17.4 H Plt Count 370 Seg Neutrophils % 76.8 Lymphocytes % 15.6 Monocytes % 6.3 Eosinophils % 0.9 Basophils % 0.4 Absolute Neutrophils 4.5 Absolute Lymphocytes 0.9 Absolute Monocytes 0.4 Absolute Eosinophils 0.1 Absolute Basophils 0.0 Retic Count (auto) Absolute Retic Sodium 132.6 L Potassium 4.4 Chloride 104 Carbon Dioxide 20 L Anion Gap 9 BUN 18 Creatinine 1.07 Est GFR ( Amer) > 60 Est GFR (Non-Af Amer) 52 L Glucose 77 Serum Osmolality 275 Calcium 8.6 Iron TIBC % Saturation Ferritin Vitamin B12 Folate Urine Osmolality 01/21/18 01/21/18 01/21/18 04:07 04:07 16:55 WBC RBC Hgb Hct MCV MCH MCHC RDW Plt Count Seg Neutrophils % Lymphocytes % Monocytes % Eosinophils % Basophils % Absolute Neutrophils Absolute Lymphocytes Absolute Monocytes Absolute Eosinophils Absolute Basophils Retic Count (auto) 0.79 Absolute Retic 0.017 L Sodium Potassium Chloride Carbon Dioxide Anion Gap BUN Creatinine Est GFR ( Amer) Est GFR (Non-Af Amer) Glucose Serum Osmolality Calcium Iron 39.9 TIBC 300 % Saturation 13 Ferritin 67.00 Vitamin B12 474.0 Folate > 20.00 Urine Osmolality 502 01/19/18 08:20 Clean Catch Midstream Urine Culture - Final Enterococcus Faecalis(Group D) Staph Coagulase Negative Impressions: Abdomen/Pelvis CT 01/18/18 23:20 IMPRESSION: 1. Enterocutaneous fistula/scar of the posterior pelvis. 2. Small bowel ileus or low-grade partial obstruction. Adhesive disease. Partial colectomy. Abdomen X-Ray 01/20/18 00:00 IMPRESSION: NO RADIOGRAPHIC EVIDENCE FOR ACUTE ABDOMINAL DISEASE. Assessment & Plan - Diagnosis (1) Crohns disease Qualifiers: Digestive disease complication type: with fistula Is this a current diagnosis for this admission?: Yes Plan: She has severe Crohn's disease that is currently being managed with Entyvio and mercaptopurine. She had been doing reasonably well from the Crohn standpoint until the week before her admission. She should continue with her infusion which she normally gets in [place] and also continue with her daily mercaptopurine. She follows up with Dr. Whitney in [place] and also has an appointment with a director of gift planning at [facility]. She sees a GI surgeron at [facility] also. She will continue with Imodium twice daily for her ileostomy and increase the dose as necessary (2) Anemia Qualifiers: Other causes of anemia: chronic disease, other Is this a current diagnosis for this admission?: Yes Plan: Her anemia is likely related to her chronic diseases. She was also dehydrated on admission and hemodilution may explain the drop in the H&H. She has no obvious blood loss from her ileostomy. I would hold off on active intervention at this time (4) Acute renal failure Qualifiers: Acute renal failure type: unspecified Qualified Code(s): N17.9 - Acute kidney failure, unspecified Is this a current diagnosis for this admission?: Yes (6) Hyponatremia Is this a current diagnosis for this admission?: Yes
[2018-01-22 05:23] LABS: ABSOLUTE EOSINOPHILS # (AUTO) 0.2 10^3/uL (0.0-0.6); ABSOLUTE LYMPHOCYTES (AUTO) 0.9 10^3/uL (0.5-4.7); ABSOLUTE MONOCYTES (AUTO) 0.3 10^3/uL (0.1-1.4); ABSOLUTE NEUT (AUTO) 5.3 10^3/uL (1.7-8.2); BASOPHILS % (AUTO) 0.7 % (0-2); EOSINOPHILS % (AUTO) 2.7 % (0-6); HEMATOCRIT 23.2 % (36.0-47.0); LYMPHOCYTES % (AUTO) 13.3 % (13-45); MEAN CORPUSCULAR HEMOGLOBIN 35.5 pg (27.0-33.4); MEAN CORPUSCULAR HGB CONC 34.7 g/dL (32.0-36.0); MEAN CORPUSCULAR VOLUME 102 fl (80-97); MONOCYTES % (AUTO) 4.2 % (3-13); PLATELET COUNT 336 10^3/uL (150-450); RED BLOOD COUNT 2.27 10^6/uL (3.72-5.28); RED CELL DISTRIBUTION WIDTH 17.2 % (11.5-14.0); SEGMENTED NEUTROPHILS % (AUTO) 79.1 % (42-78); TOTAL CELLS COUNTED % (AUTO) 100 %; WHITE BLOOD COUNT 6.7 10^3/uL (4.0-10.5)
[2018-01-22 05:45] LABS: ANION GAP 8 (5-19); BLOOD UREA NITROGEN 22 mg/dL (7-20); CALCIUM 8.4 mg/dL (8.4-10.2); CARBON DIOXIDE 19 mmol/L (22-30); CHLORIDE 109 mmol/L (98-107); GLUCOSE 82 mg/dL (75-110); POTASSIUM 4.3 mmol/L (3.6-5.0); SODIUM 136.2 mmol/L (137-145)
[2018-01-22] MEDS ORDERED: NORMAL SALINE 250 ML IV PRN ×2 (08:23)
--- NOTE | 2018-01-22 09:29 | PDOC PROGRESS REPORT ---
Subjective Progress Note for:: 01/22/18 Subjective:: Patient is currently doing well Patient's denied any chest pain denied any shortness of the breath Patient hemoglobin is 8.1 Sodium is all stable Reason For Visit: HYPONATREMIA/ARF/ILLEUS Physical Exam Vital Signs: Temp Pulse Resp BP Pulse Ox 98.0 F 65 16 128/69 H 100 01/22/18 07:22 01/22/18 07:22 01/22/18 07:22 01/22/18 07:22 01/22/18 07:22 Intake & Output 01/21/18 01/22/18 01/23/18 06:59 06:59 06:59 Intake Total 3875 1634 Balance 3875 1634 Weight 57.7 kg 59.1 kg General appearance: PRESENT: no acute distress, well-developed, well-nourished Head exam: PRESENT: atraumatic, normocephalic Eye exam: PRESENT: conjunctiva pink, EOMI, PERRLA. ABSENT: scleral icterus Ear exam: PRESENT: normal external ear exam Mouth exam: PRESENT: moist, tongue midline Neck exam: PRESENT: full ROM. ABSENT: carotid bruit, JVD, lymphadenopathy, thyromegaly Respiratory exam: PRESENT: clear to auscultation quita Cardiovascular exam: PRESENT: RRR. ABSENT: diastolic murmur, rubs, systolic murmur Pulses: PRESENT: normal dorsalis pedis pul, +2 pedal pulses bilateral Vascular exam: PRESENT: normal capillary refill GI/Abdominal exam: PRESENT: normal bowel sounds, soft. ABSENT: distended, guarding, mass, organolmegaly, rebound, tenderness Additonal comments: Ileostomy bag is functioning Rectal exam: PRESENT: deferred Musculoskeletal exam: PRESENT: ambulatory Neurological exam: PRESENT: alert, awake, oriented to person, oriented to place , oriented to time, oriented to situation, CN II-XII grossly intact. ABSENT: motor sensory deficit Psychiatric exam: PRESENT: appropriate affect, normal mood. ABSENT: homicidal ideation, suicidal ideation Skin exam: PRESENT: dry, intact, warm. ABSENT: cyanosis, rash Results Laboratory Results: 01/22/18 04:20 01/22/18 04:20 01/21/18 01/21/18 01/21/18 04:07 04:07 04:07 WBC RBC Hgb Hct MCV MCH MCHC RDW Plt Count Seg Neutrophils % Lymphocytes % Monocytes % Eosinophils % Basophils % Absolute Neutrophils Absolute Lymphocytes Absolute Monocytes Absolute Eosinophils Absolute Basophils Retic Count (auto) 0.79 Absolute Retic 0.017 L Sodium Potassium Chloride Carbon Dioxide Anion Gap BUN Creatinine Est GFR ( Amer) Est GFR (Non-Af Amer) Glucose Calcium Iron 39.9 TIBC 300 % Saturation 13 Transferrin 205 Ferritin 67.00 Vitamin B12 474.0 Folate > 20.00 Urine Osmolality 01/21/18 01/22/18 01/22/18 16:55 04:20 04:20 WBC 6.7 RBC 2.27 L Hgb 8.0 L Hct 23.2 L MCV 102 H MCH 35.5 H MCHC 34.7 RDW 17.2 H Plt Count 336 Seg Neutrophils % 79.1 H Lymphocytes % 13.3 Monocytes % 4.2 Eosinophils % 2.7 Basophils % 0.7 Absolute Neutrophils 5.3 Absolute Lymphocytes 0.9 Absolute Monocytes 0.3 Absolute Eosinophils 0.2 Absolute Basophils 0.0 Retic Count (auto) Absolute Retic Sodium 136.2 L Potassium 4.3 Chloride 109 H Carbon Dioxide 19 L Anion Gap 8 BUN 22 H Creatinine 1.30 H Est GFR ( Amer) 51 L Est GFR (Non-Af Amer) 42 L Glucose 82 Calcium 8.4 Iron TIBC % Saturation Transferrin Ferritin Vitamin B12 Folate Urine Osmolality 502 01/19/18 08:20 Clean Catch Midstream Urine Culture - Final Enterococcus Faecalis(Group D) Staph Coagulase Negative Impressions: Abdomen/Pelvis CT 01/18/18 23:20 IMPRESSION: 1. Enterocutaneous fistula/scar of the posterior pelvis. 2. Small bowel ileus or low-grade partial obstruction. Adhesive disease. Partial colectomy. Abdomen X-Ray 01/20/18 00:00 IMPRESSION: NO RADIOGRAPHIC EVIDENCE FOR ACUTE ABDOMINAL DISEASE. Assessment & Plan - Diagnosis (1) Abdominal pain Qualifiers: Abdominal location: unspecified location Qualified Code(s): R10.9 - Unspecified abdominal pain Is this a current diagnosis for this admission?: Yes Plan: Currently all resolved (2) Crohns disease Qualifiers: Digestive disease complication type: with fistula Is this a current diagnosis for this admission?: Yes Plan: Follow-up outpatient GI (3) Rectovaginal fistula Is this a current diagnosis for this admission?: Yes Plan: Patient have extensive evaluations done currently see her Dr. Mahmood and also seen by the Rem[facility] (4) Acute renal failure Qualifiers: Acute renal failure type: unspecified Qualified Code(s): N17.9 - Acute kidney failure, unspecified Is this a current diagnosis for this admission?: Yes Plan: Currently all resolved (5) Hyponatremia Is this a current diagnosis for this admission?: Yes Plan: Currently all resolved (6) Ileus Is this a current diagnosis for this admission?: Yes (7) Vomiting Qualifiers: Vomiting type: unspecified Vomiting Intractability: non-intractable Nausea presence: with nausea Qualified Code(s): R11.2 - Nausea with vomiting, unspecified Is this a current diagnosis for this admission?: Yes (8) Anemia Qualifiers: Other causes of anemia: chronic disease, other Is this a current diagnosis for this admission?: Yes Plan: Anemia we will transfuse 1 unit of the blood before the discharge - Time Time Spent with patient: 15-24 minutes Medications reviewed and adjusted accordingly: Yes Anticipated discharge: Home Within: within 24 hours - Inpatient Certification Medical Necessity: Need Close Monitoring Due to Risk of Patient Decompensation Post Hospital Care: D/C Contract Sheltered Workshop Supervisor Documentation - Plan Summary Plan Summary: Patient is currently doing much better we will transfuse 1 unit of the blood before the discharge well patient's ferritin is only 67
[2018-01-22] MEDS: CYANOCOBALAMIN (VITAMIN B-12) 1,000 MCG TABLET PO SCH (10:14)
[2018-01-22] MEDS: LACTOBACILLUS ACIDOPHILUS 250 MG TAB PO SCH (10:14)
[2018-01-22] MEDS: ENOXAPARIN SODIUM INJ 30 MG/0.3 ML DISP.SYRIN SUBCUT SCH (10:16)
[2018-01-22 15:55] VITALS: BP 130/63
[2018-01-22 16:35] LABS: HEMATOCRIT 27.9 % (36.0-47.0); MEAN CORPUSCULAR HEMOGLOBIN 35.2 pg (27.0-33.4); MEAN CORPUSCULAR HGB CONC 35.7 g/dL (32.0-36.0); MEAN CORPUSCULAR VOLUME 99 fl (80-97); PLATELET COUNT 385 10^3/uL (150-450); RED BLOOD COUNT 2.83 10^6/uL (3.72-5.28); RED CELL DISTRIBUTION WIDTH 18.2 % (11.5-14.0); WHITE BLOOD COUNT 8.3 10^3/uL (4.0-10.5)
--- NOTE | 2018-01-22 17:01 | PDOC DISCHARGE SUMMARY ---
General - Admit/Disc Date/PCP Admission Date/Primary Care Provider: 01/19/18 03:13 NUPUR COTE MD Discharge Date: 01/22/18 - Discharge Diagnosis (1) Abdominal pain Is this a current diagnosis for this admission?: Yes Summary: Currently all resolved (2) Crohns disease Is this a current diagnosis for this admission?: Yes Summary: Follow-up outpatients Dr. Coombs (3) Rectovaginal fistula Is this a current diagnosis for this admission?: Yes Summary: Patient's currently see her [facility] and Dr. Mahmood (4) Acute renal failure Is this a current diagnosis for this admission?: Yes Summary: Currently all resolved (5) Hyponatremia Is this a current diagnosis for this admission?: Yes Summary: Currently all resolved (6) Ileus Is this a current diagnosis for this admission?: Yes Summary: Currently all resolved (7) Vomiting Is this a current diagnosis for this admission?: Yes Summary: resoved (8) Anemia Is this a current diagnosis for this admission?: Yes Summary: From chronic disease status post 1 unit of blood transfusions (9) Recurrent urinary tract infection Is this a current diagnosis for this admission?: Yes Summary: Due to the rectovaginal fistula continues to Keflex - Additional Information Discharge Diet: As Tolerated Discharge Activity: Activity As Tolerated, Balance Activity w/Rest Home Medications: Cyanocobalamin (Vitamin B-12) [Vitamin B-12] 1,000 mcg PO DAILY 01/19/18 L. Acidophilus/Pectin, [place] [Acidophilus Probiotic Capsule] 1 cap PO DAILY 04/03 Loperamide HCl [Loperamide] 2 mg PO DAILY 01/19/18 Mercaptopurine 75 mg PO DAILY 01/19/18 Multivit-Min/Iron/Folic/Lutein [Centrum Silver Women Tablet] 1 tab PO DAILY 04/03 Ondansetron HCl [Zofran] 4 mg PO Q6HP PRN 01/19/18 Cephalexin [Cephalexin 250 MG Tablet] 500 mg PO BID #14 01/22/18 History of Present Illness History of Present Illness: This 57-year-old females with a significant history of the Crohn's disease with the rectovaginal fistula and multiple evaluation done including the patient was surgery performed at the [facility] patient seen by the locally Dr. Ceballos also seen by Dr. Mahmood the GYNAnd recently see Dr. lópez at the [facility] ongoing problems with this fistula and recurrent urinary tract infections who ileostomy bagCame to the emergency department with the nausea vomiting and abdominal pain and patient underwent for the CT abdomen pelvis with psoas the ileus versus partial obstructions and patient's sodium is only 120 I saw the patient in the floor patients feeling better but still been feeling dizzy when she patients move patient's abdominal pain is currently all stable Patient's denied any chest pain denied any shortness of the breath Patient seen by general surgery and suggest the start on a clear liquid diet Hospital Course Hospital Course: This is a 57-year-old female is as medical problem about came to the emergency department with a complaint of nausea vomiting and abdominal pain and patient was diagnosed with the ileus and a severe hyponatremia and acute renal failure Was admitting in the telemetry bed keep her n.p.o. and started on IV fluid and consult the general surgery and the pretty much all the symptoms resolved for the ileus Patient is seen by the nephrology Dr. Blanchard because of the acute renal failure and hyponatremiaWhich also resolved Patient also have a urinary tract infection initially patient was started on IV Cipro and patient started developing the hives and IV area and immediately stop and given the Solu-Medrol patient usually take the p.o. Cipro several times never happened before and the nurses tried to redo on the other hand the same thing happen so I think patients might develop some allergy to the Cipro and patient was treated with IV Rocephin and tolerated very well Patient's otherwise received the 1 unit of the blood and patient's otherwise p.o. intake is good move around without any problem Physical Exam Vital Signs: Temp Pulse Resp BP Pulse Ox 98.2 F 70 16 130/63 H 100 01/22/18 15:50 01/22/18 15:50 01/22/18 15:50 01/22/18 15:50 01/22/18 15:50 Intake & Output 01/21/18 01/22/18 01/23/18 06:59 06:59 06:59 Intake Total 3875 1634 750 Balance 3875 1634 750 Weight 57.7 kg 59.1 kg General appearance: PRESENT: no acute distress, well-developed, well-nourished Head exam: PRESENT: atraumatic, normocephalic Eye exam: PRESENT: conjunctiva pink, EOMI, PERRLA. ABSENT: scleral icterus Ear exam: PRESENT: normal external ear exam Mouth exam: PRESENT: moist, tongue midline Neck exam: PRESENT: full ROM. ABSENT: carotid bruit, JVD, lymphadenopathy, thyromegaly Respiratory exam: PRESENT: clear to auscultation quita Cardiovascular exam: PRESENT: RRR. ABSENT: diastolic murmur, rubs, systolic murmur Pulses: PRESENT: normal dorsalis pedis pul, +2 pedal pulses bilateral Vascular exam: PRESENT: normal capillary refill GI/Abdominal exam: PRESENT: normal bowel sounds, soft. ABSENT: distended, guarding, mass, organolmegaly, rebound, tenderness Additonal comments: Ileostomy bag is functioning Rectal exam: PRESENT: deferred Extremities exam: ABSENT: pedal edema Musculoskeletal exam: PRESENT: ambulatory Neurological exam: PRESENT: alert, awake, oriented to person, oriented to place , oriented to time, oriented to situation, CN II-XII grossly intact. ABSENT: motor sensory deficit Psychiatric exam: PRESENT: appropriate affect, normal mood. ABSENT: homicidal ideation, suicidal ideation Skin exam: PRESENT: dry, intact, warm. ABSENT: cyanosis, rash Results Laboratory Results: 01/22/18 16:06 01/22/18 04:20 01/21/18 01/21/18 01/22/18 04:07 16:55 04:20 WBC RBC Hgb Hct MCV MCH MCHC RDW Plt Count Seg Neutrophils % Lymphocytes % Monocytes % Eosinophils % Basophils % Absolute Neutrophils Absolute Lymphocytes Absolute Monocytes Absolute Eosinophils Absolute Basophils Sodium 136.2 L Potassium 4.3 Chloride 109 H Carbon Dioxide 19 L Anion Gap 8 BUN 22 H Creatinine 1.30 H Est GFR ( Amer) 51 L Est GFR (Non-Af Amer) 42 L Glucose 82 Calcium 8.4 Transferrin 205 Urine Osmolality 502 Blood Type Antibody Screen 01/22/18 01/22/18 01/22/18 04:20 08:46 16:06 WBC 6.7 8.3 RBC 2.27 L 2.83 L Hgb 8.0 L 10.0 L Hct 23.2 L 27.9 L MCV 102 H 99 H MCH 35.5 H 35.2 H MCHC 34.7 35.7 RDW 17.2 H 18.2 H Plt Count 336 385 Seg Neutrophils % 79.1 H Lymphocytes % 13.3 Monocytes % 4.2 Eosinophils % 2.7 Basophils % 0.7 Absolute Neutrophils 5.3 Absolute Lymphocytes 0.9 Absolute Monocytes 0.3 Absolute Eosinophils 0.2 Absolute Basophils 0.0 Sodium Potassium Chloride Carbon Dioxide Anion Gap BUN Creatinine Est GFR ( Amer) Est GFR (Non-Af Amer) Glucose Calcium Transferrin Urine Osmolality Blood Type A POSITIVE Antibody Screen NEGATIVE Impressions: Abdomen/Pelvis CT 01/18/18 23:20 IMPRESSION: 1. Enterocutaneous fistula/scar of the posterior pelvis. 2. Small bowel ileus or low-grade partial obstruction. Adhesive disease. Partial colectomy. Abdomen X-Ray 01/20/18 00:00 IMPRESSION: NO RADIOGRAPHIC EVIDENCE FOR ACUTE ABDOMINAL DISEASE. Qualifiers - * PATEINT BEING DISCHARGED WITH ANY OF THE FOLLOWING DIAGNOSIS?: No VTE patient discharged on overlapping Therapy?: Yes Plan Time Spent: Greater than 30 Minutes - Patient is currently doing well discharge home follow-up outpatients Dr. Coombs for the Crohn's disease follow in office in 1 week will repeat the Chem-7 and CBC
== END 2018-01-22 17:30 | disposition home or self-care (01) | DRG 389 ==
LOC: ER 23:02 → EH 01-19 03:13 → 4N 01-19 04:50
PROVIDERS: ADMIT Family Medicine; ATTEND Family Medicine
PROC: 3E0234Z Introduction of Serum, Toxoid and Vaccine into Muscle, Percutaneous Approach (ICD-10-PCS; principal; 2018-01-22)
PROC: 30233N1 Transfusion of Nonautologous Red Blood Cells into Peripheral Vein, Percutaneous Approach (ICD-10-PCS; 2018-01-22)
DX: K56.7 Ileus, unspecified (principal); N17.9 Acute kidney failure, unspecified; E87.1 Hypo-osmolality and hyponatremia; K50.90 Crohn's disease, unspecified, without complications; N39.0 Urinary tract infection, site not specified; I95.1 Orthostatic hypotension; E86.0 Dehydration; I12.9 Hypertensive chronic kidney disease with stage 1 through stage 4 chronic kidney disease, or unspecified chronic kidney disease; N18.3 Chronic kidney disease, stage 3 (moderate); D63.1 Anemia in chronic kidney disease; K21.9 Gastro-esophageal reflux disease without esophagitis; K60.4 Rectal fistula; F17.210 Nicotine dependence, cigarettes, uncomplicated; Z93.2 Ileostomy status; Z23 Encounter for immunization
CPT/HCPCS: 36415; 36430; 74019; 74177; 80048; 80053; 82272; 82570; 82607; 82728; 82746; 83540; 83550; 83690; 83735; 83930; 83935; 84300; 84466; 85025; 85027; 85045; 86850; 86900; 86901; 86920; 87040; 87086; 87088; 87186; 90686; 96361; 96374; 96375; 99285; J0696; J0744; J1170; J2405; J2920; J7030; J7040; P9016; S0164

== ENCOUNTER 2018-03-03 10:59 | Emergency (ER) | payer MEDICARE, OTHER ==
[2018-03-03] MEDS ORDERED: FENTANYL CITRATE INJ/PF 100 MCG/2 ML AMPUL IV ONE (11:59)
--- NOTE | 2018-03-03 12:07 | ER Document Report ---
ED GI/ - General Chief Complaint: Vaginal Pain Stated Complaint: BODY PAIN Time Seen by Provider: 03/03/18 11:58 Mode of Arrival: Medic Information source: Patient Notes: 55-year-old female with past medical history of Crohn's disease with multiple surgeries on mercaptopurine as well as infusions every [address] Gonzalez at [place], Dr. Rubio at [facility] and Dr. Elisa Flanagan here locally who presents with what she states is about 6 months of some vaginal irritation and redness. She states that she has seen her specialist room air considering adding Remicade. No imaging has been performed. No pain medications or ointments have been prescribed. Patient did see the primary care physician yesterday and had some blood work showing possibly a low potassium recorded the patient. Patient denies any nausea, vomiting, or fevers. TRAVEL OUTSIDE OF THE [place] IN LAST 30 DAYS: No - HPI Patient complains to provider of: Other - See above Onset: Other - See above Timing/Duration: Gradual Quality of pain: Burning, Dull Severity at maximum: Moderate Severity in ED: Moderate Pain Level: 2 Location: Other - See above Vaginal bleeding (Compared to normal period): None Sexual history: Inactive Associated symptoms: Other - See above Exacerbated by: Denies Relieved by: Denies Similar symptoms previously: Yes Recently seen / treated by doctor: Yes - Related Data Allergies/Adverse Reactions: No Known Drug Allergies Allergy (Verified 03/03/18 11:46) Past Medical History - General Information source: Patient - Social History Smoking Status: Unknown if Ever Smoked Cigarette use (# per day): No Chew tobacco use (# tins/day): No Smoking Education Provided: No Frequency of alcohol use: None Drug Abuse: None Family History: None, Reviewed & Not Pertinent - Past Medical History Cardiac Medical History: Reports: Hx Hypertension Pulmonary Medical History: Denies: Hx Tuberculosis Neurological Medical History: Denies: Hx Seizures Renal/ Medical History: Denies: Hx Peritoneal Dialysis GI Medical History: Reports: Hx Crohn's Disease, Hx Gastroesophageal Reflux Disease Psychiatric Medical History: Reports: Hx Depression Past Surgical History: Reports: Hx Abdominal Surgery, Hx Bowel Surgery, Hx Cholecystectomy, Hx Hysterectomy - total, Hx Ileostomy, Other - colostomy in 2004 then colon resection and ileostomy in 2012 at [place]. Denies: Hx Pacemaker - Immunizations Hx Diphtheria, Pertussis, Tetanus Vaccination: Yes Review of Systems - Review of Systems Constitutional: denies: Fever Cardiovascular: denies: Palpitations Respiratory: denies: Short of breath Gastrointestinal: denies: Diarrhea, Vomiting Genitourinary: Dysuria Musculoskeletal: denies: Leg swelling Skin: Other - no hives Neurological/Psychological: Other - no slurred speech -: Yes All other systems reviewed and negative Physical Exam - Vital signs Vitals: Temp 98.2 F 03/03/18 11:00 Notes: Reviewed vital signs and nursing note as charted by RN. CONSTITUTIONAL: Alert and oriented and responds appropriately to questions. Well -appearing; well-nourished HEAD: Normocephalic; atraumatic EYES: PERRL CARD: Regular rate and rhythm; no murmurs RESP: Normal chest excursion without splinting or tachypnea; breath sounds clear and equal bilaterally ABD/GI: Normal bowel sounds; multiple abdominal scars consistent with prior surgeries with ileostomy bag in the left quadrant showing brown normal colored stool; non-distended; soft, non-tender to deep palpation of all 4 quadrants of the abdomen GI/: Patient has swelling and erythema with some small ulcerated lesions to the bilateral labia and inguinal region. There is no obvious fluctuance or drainage present. It is tender to palpation BACK: The back appears normal and is non-tender to palpation, there is no CVA tenderness EXT: Normal ROM in all joints; non-tender to palpation; no cyanosis, no effusions, no edema SKIN: See above NEURO: Moves all extremities equally; Motor and sensory function intact PSYCH: The patient's mood and manner are appropriate. Grooming and personal hygiene are appropriate. Course - Re-evaluation Re-evalutation: 03/03/18 12:09 I called and spoke to the primary care physician Dr. Flanagan. He has looked up the recent note and evaluation at [facility]. It appears the patient has a chronic Vaginal fistula. She is followed by the specialists listed above as well as the MISSIONARY COORDINATOR Dr. Mahmood and evaporative cooler installer Dr. Blanchard. Patient was supposed to follow-up with the GI physician Dr. Whitney. Dr. Flanagan states that the patient's vaginal area looks around baseline and was started on Bactrim yesterday. 03/03/18 12:[address] Whitney at [phone] ext [phone] 03/03/18 12:50 I was able to call her GI specialist and speak to the nurse practitioner Kaycee. They are very familiar with this patient. They believe that this cutaneous manifestation of her Crohn's disease will be better treated with infliximab which they have just issued a request for. They do not believe prednisone or any vaginal creams would be effective. Patient has recently seen the instructional systems design consultant as well. This recommendation appears to be in line with both the primary care physician and the GI specialist. They have recommended pain control and to follow-up in the office. I believe that this is reasonable as does the patient. 03/03/18 14:44 Patient's creatinine is elevated 1.96. She has a history of some chronic renal disease. During this last year she had a creatinine of 2.15 which corrected with fluids. Creatinine in mid January was 1.38. I have called the primary care physician who admits for this patient and spoke to him directly about these laboratory values. He states that he would like 1 L of fluid and will see the patient in the office tomorrow. He does not believe admission is warranted. Patient is comfortable with this plan. - Vital Signs Vital signs: Temp Pulse Resp BP Pulse Ox 98.2 F 89 16 124/89 H 97 03/03/18 11:00 03/03/18 11:05 03/03/18 11:05 03/03/18 11:05 03/03/18 11:05 - Laboratory Result Diagrams: 03/03/18 13:25 03/03/18 13:25 Laboratory results interpreted by me: 03/03/18 03/03/18 13:25 13:25 RBC 2.98 L Hgb 10.5 L Hct 29.6 L MCV 99 H MCH 35.2 H RDW 16.8 H Plt Count 467 H Seg Neutrophils % 85.1 H Lymphocytes % 9.7 L Sodium 133.6 L Chloride 97 L BUN 23 H Creatinine 1.96 H Est GFR ( Amer) 32 L Est GFR (Non-Af Amer) 26 L Discharge - Discharge Clinical Impression: Vaginal irritation, Crohn's disease of colon with fistula Condition: Good Disposition: HOME, SELF-CARE Additional Instructions: Come back immediately for any increased pain, fevers, vomiting, spread of the redness, or any other acute problems. Please make sure that you drink copious fluids and please follow-up with Dr. Flanagan tomorrow as he has instructed. Prescriptions: Oxycodone HCl/Acetaminophen [Percocet 5-325 mg Tablet] 1 tab PO ASDIR PRN #15 tablet PRN Reason: Referrals: NUPUR FLANAGAN MD [Primary Care Provider] - Follow up as needed
[2018-03-03] MEDS ORDERED: OXYCODONE-ACETAMINOPHEN 5-325 MG TABLET PO ONE (13:44)
[2018-03-03 14:02] LABS: ABSOLUTE EOSINOPHILS # (AUTO) 0.1 10^3/uL (0.0-0.6); ABSOLUTE LYMPHOCYTES (AUTO) 0.9 10^3/uL (0.5-4.7); ABSOLUTE MONOCYTES (AUTO) 0.4 10^3/uL (0.1-1.4); ABSOLUTE NEUT (AUTO) 8.1 10^3/uL (1.7-8.2); BASOPHILS % (AUTO) 0.4 % (0-2); EOSINOPHILS % (AUTO) 0.7 % (0-6); HEMATOCRIT 29.6 % (36.0-47.0); HEMOGLOBIN 10.5 g/dL (12.0-15.5); LYMPHOCYTES % (AUTO) 9.7 % (13-45); MEAN CORPUSCULAR HEMOGLOBIN 35.2 pg (27.0-33.4); MEAN CORPUSCULAR HGB CONC 35.5 g/dL (32.0-36.0); MEAN CORPUSCULAR VOLUME 99 fl (80-97); MONOCYTES % (AUTO) 4.1 % (3-13); PLATELET COUNT 467 10^3/uL (150-450); RED BLOOD COUNT 2.98 10^6/uL (3.72-5.28); RED CELL DISTRIBUTION WIDTH 16.8 % (11.5-14.0); SEGMENTED NEUTROPHILS % (AUTO) 85.1 % (42-78); TOTAL CELLS COUNTED % (AUTO) 100 %; WHITE BLOOD COUNT 9.5 10^3/uL (4.0-10.5)
[2018-03-03 14:18] LABS: ALANINE AMINOTRANSFERASE 21 U/L (9-52); ALBUMIN 4.5 g/dL (3.5-5.0); ALKALINE PHOSPHATASE 66 U/L (38-126); ANION GAP 13 (5-19); ASPARTATE AMINO TRANSFERASE 22 U/L (14-36); BILIRUBIN,DIRECT 0.2 mg/dL (0.0-0.4); BILIRUBIN,TOTAL 0.3 mg/dL (0.2-1.3); BLOOD UREA NITROGEN 23 mg/dL (7-20); CALCIUM 9.5 mg/dL (8.4-10.2); CARBON DIOXIDE 24 mmol/L (22-30); CHLORIDE 97 mmol/L (98-107); GLUCOSE 106 mg/dL (75-110); POTASSIUM 4.2 mmol/L (3.6-5.0); SODIUM 133.6 mmol/L (137-145); TOTAL PROTEIN 8.2 g/dL (6.3-8.2)
[2018-03-03] MEDS ORDERED: NORMAL SALINE 1000 ML 1,000 ML IV ONE (14:41)
[2018-03-03 15:56] VITALS: BP 129/74
== END 2018-03-03 16:27 | disposition home or self-care (01) ==
LOC: ER 10:59
DX: K50.113 Crohn's disease of large intestine with fistula (principal); N76.6 Ulceration of vulva; R10.2 Pelvic and perineal pain; I10 Essential (primary) hypertension
CPT/HCPCS: 99283; 96361; 96374; 36415; 85025; 80053; J3010; A9270; J7030

== ENCOUNTER → 2018-03-10 | Outpatient (CLI) | payer MEDICARE, OTHER ==
--- NOTE | 2018-03-10 16:48 | RADIOLOGY REPORT (SQ) ---
EXAM DESCRIPTION: CHEST PA/LATERAL COMPLETED DATE/TIME: 03/10/2018 4:39 pm REASON FOR STUDY: ENCOUNTER FOR SCREENING FOR RESPIRATORY TUBERCULOSIS Z11.1 ENCOUNTER FOR SCREENIN G FOR RESPIRATORY TUBERCULOSIS COMPARISON: 01/13/2011. NUMBER OF VIEWS: Two view. TECHNIQUE: Frontal and lateral radiographic views of the chest acquired. LIMITATIONS: None. FINDINGS: LUNGS AND PLEURA: No opacities, masses or pneumothorax. No pleural effusion. Attenuated bl ood vessels and flattened vicente-diaphragms. MEDIASTINUM AND HILAR STRUCTURES: No masses. No contour abnormalities. HEART AND VASCULAR STRUCTURES: Heart normal in size and contour. No evidence for failure. BONES: No acute findings. HARDWARE: None in the chest. OTHER: No other significant finding. IMPRESSION: COPD. NO ACUTE RADIOGRAPHIC FINDING IN THE CHEST. TECHNICAL DOCUMENTATION: JOB ID: [id number] [employer]- All Rights Reserved Reading location - IP/workstation name: [email or web address]
== END ==
LOC: OD 16:21
PROVIDERS: ATTEND Physician Assistant
DX: Z11.1 Encounter for screening for respiratory tuberculosis (principal); J44.9 Chronic obstructive pulmonary disease, unspecified
CPT/HCPCS: 71046

== ENCOUNTER → 2018-03-17 | Outpatient (CLI) | payer MEDICARE, OTHER ==
--- NOTE | 2018-03-18 12:04 | RADIOLOGY REPORT (SQ) ---
EXAM DESCRIPTION: MRI PELVIS COMBO COMPLETED DATE/TIME: 03/17/2018 5:59 pm REASON FOR STUDY: K50.813 CROHN'S DISEASE OF BOTH SMALL AND LARGE INTESTINE W FISTULA K50.813 CROHN 'S DISEASE OF BOTH SMALL AND LARGE INTESTINE W COMPARISON: CT abdomen and pelvis from 01/19/2018. TECHNIQUE: Multiplanar imaging of the pelvis to include T1-weighted, postcontrast T1-weighted, and T 2-weighted images. CONTRAST TYPE AND DOSE: 10 mL Prohance. RENAL FUNCTION: GFR > 60. LIMITATIONS: None. FINDINGS: BONE MARROW: No marrow signal alteration. Specifically no marrow replacement or marrow ed estefany. No evidence for osteomyelitis. No cortical break through. PELVIC SOFT TISSUES: As seen on CT, there is linear signal extending from the posterior low rectum do rsally along the upper gluteal crease which may represent recto cutaneous fistula. This is best demo nstrated on the postcontrast imaging as a linear mild band of enhancement. No associated drainable f luid collection. Minimal presacral edema. BOWEL: Visualized bowel without evidence of dilatation or abnormal thickening. The patient has a le ft lower quadrant ostomy. BLADDER: No evidence of mass or abnormal wall thickening. OTHER: No other significant finding. IMPRESSION: 1. SUBTLE LINEAR ENHANCING TRACT LIKELY REPRESENTS A RECTO CUTANEOUS FISTULA OR SCAR. NO DRAINABLE COLLECTIONS ARE APPRECIATED. TECHNICAL DOCUMENTATION: JOB ID: [id number] [employer]- All Rights Reserved Reading location - IP/workstation name: [email or web address]
== END ==
LOC: RAD 16:43
PROVIDERS: ATTEND Physician Assistant Medical
DX: K50.813 Crohn's disease of both small and large intestine with fistula (principal)
CPT/HCPCS: 82565; 72197; A9576

== ENCOUNTER → 2018-07-16 | Outpatient (CLI) | payer MEDICARE, OTHER ==
--- NOTE | 2018-07-22 15:56 | WOMENS IMAGING REPORT ---
EXAM DESCRIPTION: 3D SCREENING MAMMO BILAT COMPLETED DATE/TIME: 07/16/2018 3:46 pm REASON FOR STUDY: BILATERAL MAMMO SCREENING 3D/Z12.31 Z12.31 ENCNTR SCREEN MAMMOGRAM FOR MALIGNANT NEOPLASM OF LEONARD COMPARISON: 2013, 2014 TECHNIQUE: Standard craniocaudal and mediolateral oblique views of each breast recorded using digita l acquisition and breast tomosynthesis. LIMITATIONS: None. FINDINGS: No masses, calcifications or architectural distortion. No areas of suspicion. Read with the assistance of CAD. .[facility] - R2 Cenova Version 1.3 .[facility] Imaging - R2 Cenova Version 1.3 .[facility] Imaging - R2 Cenova Version 2.4 .[facility] - R2 Cenova Version 2.4 .[facility] - R2 Home Improvement Installer Version 9.2 IMPRESSION: NORMAL MAMMOGRAM. BIRADS 1. BREAST DENSITY: b. There are scattered areas of fibroglandular density. BIRAD: 1 NEGATIVE RECOMMENDATION: ROUTINE SCREENING COMMENT: The patient has been notified of the results by letter per SA requirements. Additional no tification policies are in place for contacting patient with suspicious or incomplete findings. Quality ID #[id number]: The [employer] recommends an annual screening mammogram for women aged 40 years or over. This facility utilizes a reminder system to ensure that all patients receive reminder letters, and/or direct phone calls for appointments. This includes reminders for routine scr eening mammograms, diagnostic mammograms, or other Breast Imaging Interventions when appropriate. Th is patient will be placed in the appropriate reminder system. The [employer] (ACR) has developed recommendations for screening MRI of the breast s in certain patient populations, to be used in conjunction with mammography. Breast MRI surveillanc e may be appropriate for women with more than 20% lifetime risk of developing breast cancer as deter mined by genetic testing, significant family history of the disease, or history of mantle radiation f or Hodgkins Disease. ACR Practice Guidelines 2008. DBT Technology DBT is a type of tomographic mammography. With conventional mammography, overlapping breast tissue ma y make lesions difficult to detect, even with good compression. DBT uses an x-ray tube that rotates a round the breast, taking images at different angles. These images are then combined to create thin sl ices of the breast that the radiologist can view as a 3D reconstruction. The [employer] unit can perform full-field digital mammograms (2D imaging); or DBT (3D imaging); or both, in a combination mode that quickly performs both the mammogram and the tomosynthesis scan while the breast is still compressed. PQRS 6045F: Fluoroscopic imaging is not utilized for breast tomosynthesis. TECHNICAL DOCUMENTATION: FINDING NUMBER: (1) ASSESSMENT: (1) JOB ID: [id number] [employer]- All Rights Reserved Reading location - IP/workstation name: [email or web address]
== END ==
LOC: WI 15:07
PROVIDERS: ATTEND Physician Assistant
DX: Z12.31 Encounter for screening mammogram for malignant neoplasm of breast (principal)
CPT/HCPCS: 77063; 77067

== ENCOUNTER → 2018-07-17 | Outpatient (CLI) | payer MEDICARE, OTHER ==
--- NOTE | 2018-07-17 14:18 | WOMENS IMAGING REPORT ---
EXAM DESCRIPTION: BONE DENSITY HIP/SPINE COMPLETED DATE/TIME: 07/17/2018 1:30 pm REASON FOR STUDY: BONE DENSITY/M81.0 M81.0 AGE-RELATED OSTEOPOROSIS W/O CURRENT PATHOLOGICAL FRAC COMPARISON: 02/12/2016 TECHNIQUE: Dual-Energy X-ray Absorptiometry (DEXA) of the AP Spine and Hip. LIMITATIONS: None. FINDINGS: LUMBAR SPINE: The bone mineral density (BMD) measured from L1-L4 in the AP projection correlates with a T-score of -2.8, which is osteoporosis as defined by the World Health Organization. HIP: The bone mineral density (BMD) measured in the left hip correlates with a T-score of -2.0, which is o steopenia as defined by the World Health Organization. IMPRESSION: 1. LUMBAR SPINE: Osteoporosis 2. HIP: Osteopenia COMMENT: The World Health Organization defines low BMD as follows: T-score: Normal: Greater than -1.0 Osteopenia: Between -1.0 and -2.5 Osteoporosis: Less than -2.5 without fractures Established osteoporosis: Less than -2.5 with fractures In general, you may wish to consider: Diagnosis Treatment Follow-up DEXA Normal BMD Prevention 2-3 years Osteopenia Prevention/Therapy 1-2 years Osteoporosis Therapy Yearly TECHNICAL DOCUMENTATION: JOB ID: [id number] [employer]- All Rights Reserved Reading location - IP/workstation name: [email or web address]
== END ==
LOC: WI 12:39
PROVIDERS: ATTEND Internal Medicine Hematology & Oncology
DX: M81.0 Age-related osteoporosis without current pathological fracture (principal)
CPT/HCPCS: 77080

== ENCOUNTER 2018-07-31 18:13 | Emergency (ER) | payer MEDICARE, OTHER ==
[2018-07-31] MEDS ORDERED: RINGERS SOLUTION,LACTATED 1,000 ML IV ONE (18:24)
[2018-07-31] MEDS ORDERED: ONDANSETRON HCL INJ/PF 4 MG/2 ML SDV IV ONE (18:24)
[2018-07-31] MEDS ORDERED: MORPHINE SULFATE 10 MG/ML INJ IV PRN (18:24)
[2018-07-31] MEDS ORDERED: MORPHINE SULFATE 10 MG/ML INJ ONE (18:29)
[2018-07-31] MEDS ORDERED: ONDANSETRON HCL INJ/PF 4 MG/2 ML SDV ONE (18:30)
--- NOTE | 2018-07-31 18:55 | ER Document Report ---
ED General - General Chief Complaint: Nausea/Vomiting Stated Complaint: NAUSEA,VOMITING Time Seen by Provider: 07/31/18 18:21 Notes: Patient is a 58 year old female with a past medical history of Crohn's disease, recurrent small bowel obstructions, recurrent ileus, history of a rectovaginal fistula, who presents with 4-5 hours of persistent nausea and bilious vomiting. She states that her symptoms are gradually and have gotten progressively worse since that time. Nothing improves or worsens her symptoms. She states this does feel similar to when she has had ileus in the past but does not feel quite as severe. Due to increment weather she has been unable to contact or see her primary care physician regarding today's concerns. She has been unable to tolerate oral intake since the onset of her symptoms. She does note a mild, generalized abdominal cramping associated with her nausea and vomiting. She denies fever or constitutional symptoms. TRAVEL OUTSIDE OF THE [place] IN LAST 30 DAYS: No - Related Data Allergies/Adverse Reactions: No Known Drug Allergies Allergy (Verified 03/03/18 11:46) Past Medical History - General Information source: Patient - Social History Smoking Status: Never Smoker Frequency of alcohol use: None Drug Abuse: None Lives with: Spouse/Significant other Family History: Reviewed & Not Pertinent - Past Medical History Cardiac Medical History: Reports: Hx Hypertension Pulmonary Medical History: Denies: Hx Tuberculosis Neurological Medical History: Denies: Hx Seizures Renal/ Medical History: Denies: Hx Peritoneal Dialysis GI Medical History: Reports: Hx Crohn's Disease, Hx Gastroesophageal Reflux Disease Psychiatric Medical History: Reports: Hx Depression Past Surgical History: Reports: Hx Abdominal Surgery, Hx Appendectomy, Hx Bowel Surgery, Hx Cholecystectomy, Hx Hysterectomy - total, Hx Ileostomy, Hx Rectal Surgery, Other - colostomy in 2004 then colon resection and ileostomy in 2012 at [place]. Denies: Hx Pacemaker - Immunizations Hx Diphtheria, Pertussis, Tetanus Vaccination: Yes Review of Systems - Review of Systems Notes: Constitutional: Negative for fever. HENT: Negative for sore throat. Eyes: Negative for visual changes. Cardiovascular: Negative for chest pain. Respiratory: Negative for shortness of breath. Gastrointestinal: Positive for abdominal pain, nausea and vomiting Genitourinary: Negative for dysuria. Musculoskeletal: Negative for back pain. Skin: Negative for rash. Neurological: Negative for headaches, weakness or numbness. 10 point ROS negative except as marked above and in HPI. Physical Exam - Vital signs Vitals: Temp Pulse Resp BP Pulse Ox 98.4 F 72 18 116/74 100 07/31/18 18:25 07/31/18 18:25 07/31/18 18:25 07/31/18 18:25 07/31/18 18:25 Interpretation: Normal Notes: PHYSICAL EXAMINATION: GENERAL: Somewhat emaciated, appears unwell but in no acute distress HEAD: Atraumatic, normocephalic. EYES: Pupils equal round and reactive to light, extraocular movements intact, sclera anicteric, conjunctiva are normal. ENT: nares patent, oropharynx clear without exudates. Mildly dry mucous membranes. NECK: Normal range of motion, supple without lymphadenopathy LUNGS: Breath sounds clear to auscultation bilaterally and equal. No wheezes rales or rhonchi. HEART: Regular rate and rhythm without murmurs ABDOMEN: Soft, mild the pediatric abdominal tenderness but no other areas of localized abdominal tenderness, normoactive bowel sounds. No guarding, no rebound. No masses appreciated. EXTREMITIES: Normal range of motion, no pitting or edema. No cyanosis. NEUROLOGICAL: No focal neurological deficits. Moves all extremities spontaneously and on command. PSYCH: Normal mood, normal affect. SKIN: Warm, Dry, normal turgor, no rashes or lesions noted. Course - Re-evaluation Re-evalutation: 07/31/18 18:48 Patient presents with persistent nausea and vomiting, dry heaving at the time of my assessment without any output. She does have some mild epigastric abdominal tenderness on palpation but no other localized areas of rebound or guarding. Primary concern would be an ileus versus a recurrent small bowel obstruction. Patient has a history of severe hyponatremia in the setting of this similar presentation although apparently her symptoms ongoing will proceed with labs, CT abdomen pelvis, provide IV antiemetics, IV fluids, pain control and reassess the patient. 07/31/18 22:47 Labs show baseline anemia, unchanged from previous exam. Lipase is nonsignificantly elevated. BUN/creatinine effectively unchanged from previous assessment. The patient has had complete resolution of her abdominal pain, nausea and vomiting after receiving IV metoclopramide. She has tolerated oral intake without difficulty. Her CT of the abdomen pelvis with IV and oral contrast does not show any evidence of ileus or an acute bowel obstruction. Urinalysis does show pyuria but no evidence of bacteria patient denies symptoms consistent with urinary tract infection. A culture has been sent but treatment will not be initiated given the absence of symptoms. She feels much better, would like to be discharged home. At this time will discharge with return precautions and follow-up recommendations. Verbal discharge instructions given a the bedside and opportunity for questions given. Medication warnings reviewed. Patient is in agreement with this plan and has verbalized understanding of return precautions and the need for primary care follow-up in the next 24-72 hours. - Vital Signs Vital signs: Temp Pulse Resp BP Pulse Ox 99.2 F 82 17 126/68 H 99 07/31/18 20:58 07/31/18 20:58 07/31/18 20:58 07/31/18 20:58 07/31/18 20:58 - Laboratory Result Diagrams: 07/31/18 18:54 07/31/18 18:54 Laboratory results interpreted by me: 07/31/18 07/31/18 07/31/18 18:54 18:54 21:11 RBC 3.10 L Hgb 11.6 L Hct 32.3 L MCV 104 H MCH 37.3 H RDW 16.4 H Seg Neutrophils % 91.5 H Lymphocytes % 5.7 L Monocytes % 1.5 L Absolute Lymphocytes 0.4 L Sodium 133.7 L Carbon Dioxide 19 L BUN 26 H Creatinine 1.64 H Est GFR ( Amer) 39 L Est GFR (Non-Af Amer) 32 L AST 38 H Total Protein 9.3 H Albumin 5.1 H Lipase 310.3 H Urine Protein 30 H Urine Ketones 20 H Urine Blood MODERATE H Ur Leukocyte Esterase MODERATE H - Diagnostic Test Radiology reviewed: Reports reviewed Discharge - Discharge Clinical Impression: Generalized abdominal pain Nausea and vomiting Qualifiers: Vomiting type: unspecified Vomiting Intractability: non-intractable Qualified Code(s): R11.2 - Nausea with vomiting, unspecified Condition: Stable Disposition: HOME, SELF-CARE Additional Instructions: You have been seen in the Emergency Department (ED) today for nausea and vomiting. Your work up today has not shown a clear cause for your symptoms. Your CT scan is normal and labs are effectively unchanged from your most previous assessment. Follow up with your doctor as soon as possible regarding today's emergent visit and your symptoms of nausea. Return to the Emergency Department (ED) if you develop abdominal pain, bloody vomiting, bloody diarrhea, if you are unable to tolerate fluids due to vomiting , or if you develop other symptoms that concern you. Referrals: JOYCE CONTRERAS MD [Primary Care Provider] - Follow up as needed
[2018-07-31 19:33] LABS: ABSOLUTE BASOPHILS # (AUTO) 0.1 10^3/uL (0.0-0.2); ABSOLUTE LYMPHOCYTES (AUTO) 0.4 10^3/uL (0.5-4.7); ABSOLUTE MONOCYTES (AUTO) 0.1 10^3/uL (0.1-1.4); ABSOLUTE NEUT (AUTO) 5.9 10^3/uL (1.7-8.2); BASOPHILS % (AUTO) 1.3 % (0-2); HEMATOCRIT 32.3 % (36.0-47.0); HEMOGLOBIN 11.6 g/dL (12.0-15.5); LYMPHOCYTES % (AUTO) 5.7 % (13-45); MEAN CORPUSCULAR HEMOGLOBIN 37.3 pg (27.0-33.4); MEAN CORPUSCULAR HGB CONC 35.8 g/dL (32.0-36.0); MEAN CORPUSCULAR VOLUME 104 fl (80-97); MONOCYTES % (AUTO) 1.5 % (3-13); PLATELET COUNT 392 10^3/uL (150-450); RED CELL DISTRIBUTION WIDTH 16.4 % (11.5-14.0); SEGMENTED NEUTROPHILS % (AUTO) 91.5 % (42-78); TOTAL CELLS COUNTED % (AUTO) 100 %; WHITE BLOOD COUNT 6.4 10^3/uL (4.0-10.5)
[2018-07-31 19:47] LABS: ALANINE AMINOTRANSFERASE 31 U/L (9-52); ALBUMIN 5.1 g/dL (3.5-5.0); ALKALINE PHOSPHATASE 57 U/L (38-126); ANION GAP 15 (5-19); ASPARTATE AMINO TRANSFERASE 38 U/L (14-36); BILIRUBIN,DIRECT 0.4 mg/dL (0.0-0.4); BLOOD UREA NITROGEN 26 mg/dL (7-20); CALCIUM 9.7 mg/dL (8.4-10.2); CARBON DIOXIDE 19 mmol/L (22-30); CHLORIDE 100 mmol/L (98-107); GLUCOSE 101 mg/dL (75-110); LIPASE 310.3 U/L (23-300); POTASSIUM 4.6 mmol/L (3.6-5.0); SODIUM 133.7 mmol/L (137-145); TOTAL PROTEIN 9.3 g/dL (6.3-8.2)
--- NOTE | 2018-07-31 20:31 | RADIOLOGY REPORT (SQ) ---
EXAM DESCRIPTION: CT ABD/PELVIS WITH IV ONLY COMPLETED DATE/TIME: 07/31/2018 8:18 pm REASON FOR STUDY: abdominal pain, n/v (PT DIDN'T DRINK) COMPARISON: 01/19/2018 TECHNIQUE: CT scan of the abdomen and pelvis performed using helical scanning technique with dynamic intravenous contrast injection. No oral contrast. Images reviewed with lung, soft tissue, and bone w indows. Reconstructed coronal and sagittal MPR images reviewed. Delayed images for evaluation of the urinary system also acquired. All images stored on PACS. All CT scanners at this facility use dose modulation, iterative reconstruction, and/or weight based d osing when appropriate to reduce radiation dose to as low as reasonably achievable (ALARA). [facility]: Dose Right [facility]: CareDose [facility]: Dose Right [facility]: Teradose 4D [facility]: [employer] CONTRAST TYPE AND DOSE: contrast/concentration: Isovue 350.00 mg/ml; Total Contrast Delivered: 58.0 ml; Total Saline Delivered: 30.0 ml RENAL FUNCTION: Creatinine 1.64 RADIATION DOSE: CT Rad equipment meets quality standard of care and radiation dose reduction techniq ues were employed. CTDIvol: 4.8 mGy. DLP: 440 mGy-cm.. LIMITATIONS: None. FINDINGS: LOWER CHEST: No significant findings. LIVER: Normal size. No enhancing masses. No dilated ducts. SPLEEN: Normal size. No focal lesions. PANCREAS: No masses identified. No significant calcifications. No adjacent inflammation or peripancre atic fluid collections. Pancreatic duct not dilated. GALLBLADDER: Surgically absent. ADRENAL GLANDS: No significant masses. RIGHT KIDNEY AND URETER: No cysts identified. No solid masses identified. No calcified stones. No hyd ronephrosis or hydroureter. LEFT KIDNEY AND URETER: Multiple parenchymal cysts identified. No solid masses identified. No calcifi ed stones. No hydronephrosis or hydroureter. AORTA AND VESSELS: No aneurysm. No dissection. Renal arteries, SMA, celiac without significant stenos is. RETROPERITONEUM: No bulky retroperitoneal adenopathy. BOWEL AND PERITONEAL CAVITY: Prior colectomy. Left lower quadrant ileostomy. No obstruction or infl ammatory changes. No free fluid. APPENDIX: Normal. PELVIS: Prior hysterectomy and colectomy. No free fluid. Unremarkable bladder. ABDOMINAL WALL: No masses. No hernias. BONES: No acute findings. OTHER: No other significant finding. IMPRESSION: NO ACUTE FINDINGS IN THE ABDOMEN OR PELVIS ON CT SCAN WITH IV CONTRAST. TECHNICAL DOCUMENTATION: JOB ID: [id number] Quality ID # [id number]: Final reports with documentation of one or more dose reduction techniques (e.g., Au tomated exposure control, adjustment of the mA and/or kV according to patient size, use of iterative reconstruction technique) 2010 [employer]- All Rights Reserved Reading location - IP/workstation name: [employer]
[2018-07-31] MEDS ORDERED: METOCLOPRAMIDE HCL INJ/PF 10 MG/2 ML SDV IV ONE (20:44)
[2018-07-31 21:41] LABS: APPEARANCE,URINE SLIGHTLY-CLOUDY; BILIRUBIN,URINE NEGATIVE (NEGATIVE); COLOR,URINE YELLOW; GLUCOSE, URINE NEGATIVE (NEGATIVE); KETONES,URINE 20 mg/dL (NEGATIVE); LEUKOCYTE ESTERASE,URINE MODERATE (NEGATIVE); NITRITE,URINE NEGATIVE (NEGATIVE); PROTEIN,URINE 30 mg/dL (NEGATIVE); URINE SPECIFIC GRAVITY 1.024; UROBILINOGEN,URINE NEGATIVE mg/dL (<2.0)
[2018-07-31] MEDS ORDERED: ONDANSETRON ODT 4 MG TAB (6 TAB/ER DISP) PO PRN (22:48)
--- NOTE | 2018-07-31 23:55 | EKG REPORT ---
SEVERITY:- OTHERWISE NORMAL ECG - SINUS ARRHYTHMIA, RATE 56-83 : Confirmed by: Estefany Stack 31-Jul-2018 23:54:33
[2018-07-31 23:58] VITALS: BP 124/77
== END 2018-07-31 23:57 | disposition home or self-care (01) ==
LOC: ER 18:13
DX: R11.14 Bilious vomiting (principal); N39.0 Urinary tract infection, site not specified; R10.84 Generalized abdominal pain; R10.816 Epigastric abdominal tenderness; D64.9 Anemia, unspecified; I10 Essential (primary) hypertension; Z87.19 Personal history of other diseases of the digestive system; Z90.49 Acquired absence of other specified parts of digestive tract; Z90.710 Acquired absence of both cervix and uterus
CPT/HCPCS: 93005; 99285; 96361; 96374; 96375; 36415; 87086; 83690; 85025; 87088; 80053; 81001; 84484; 87186; 74177; 93010; J2765; J2270; J2405; A9270

== ENCOUNTER → 2019-01-29 | Outpatient (CLI) | payer MEDICARE, OTHER ==
[2019-01-29 15:36] LABS: ABSOLUTE EOSINOPHILS # (AUTO) 0.1 10^3/uL (0.0-0.6); ABSOLUTE LYMPHOCYTES (AUTO) 1.1 10^3/uL (0.5-4.7); ABSOLUTE MONOCYTES (AUTO) 0.3 10^3/uL (0.1-1.4); ABSOLUTE NEUT (AUTO) 3.8 10^3/uL (1.7-8.2); BASOPHILS % (AUTO) 0.8 % (0-2); EOSINOPHILS % (AUTO) 1.3 % (0-6); HEMATOCRIT 31.2 % (36.0-47.0); HEMOGLOBIN 11.3 g/dL (12.0-15.5); LYMPHOCYTES % (AUTO) 20.8 % (13-45); MEAN CORPUSCULAR HEMOGLOBIN 37.7 pg (27.0-33.4); MEAN CORPUSCULAR HGB CONC 36.2 g/dL (32.0-36.0); MEAN CORPUSCULAR VOLUME 104 fl (80-97); MONOCYTES % (AUTO) 5.5 % (3-13); PLATELET COUNT 387 10^3/uL (150-450); RED CELL DISTRIBUTION WIDTH 16.1 % (11.5-14.0); SEGMENTED NEUTROPHILS % (AUTO) 71.6 % (42-78); TOTAL CELLS COUNTED % (AUTO) 100 %; WHITE BLOOD COUNT 5.3 10^3/uL (4.0-10.5)
[2019-01-29 15:44] LABS: ALANINE AMINOTRANSFERASE 32 U/L (9-52); ALBUMIN 4.9 g/dL (3.5-5.0); ALKALINE PHOSPHATASE 65 U/L (38-126); ANION GAP 14 (5-19); ASPARTATE AMINO TRANSFERASE 33 U/L (14-36); BILIRUBIN,DIRECT 0.2 mg/dL (0.0-0.4); BILIRUBIN,TOTAL 0.5 mg/dL (0.2-1.3); BLOOD UREA NITROGEN 37 mg/dL (7-20); CALCIUM 9.8 mg/dL (8.4-10.2); CARBON DIOXIDE 25 mmol/L (22-30); CHLORIDE 96 mmol/L (98-107); GLUCOSE 100 mg/dL (75-110); PHOSPHORUS 5.2 mg/dL (2.5-4.5); POTASSIUM 4.1 mmol/L (3.6-5.0); SODIUM 134.6 mmol/L (137-145); TOTAL PROTEIN 8.3 g/dL (6.3-8.2)
[2019-01-29 15:52] LABS: APPEARANCE,URINE SLIGHTLY-CLOUDY; BILIRUBIN,URINE NEGATIVE (NEGATIVE); COLOR,URINE YELLOW; GLUCOSE, URINE NEGATIVE (NEGATIVE); KETONES,URINE NEGATIVE (NEGATIVE); LEUKOCYTE ESTERASE,URINE LARGE (NEGATIVE); NITRITE,URINE NEGATIVE (NEGATIVE); PROTEIN,URINE NEGATIVE (NEGATIVE); URINE SPECIFIC GRAVITY 1.009; UROBILINOGEN,URINE NEGATIVE mg/dL (<2.0)
== END ==
LOC: OD 14:35
PROVIDERS: ATTEND Internal Medicine Nephrology
DX: N18.9 Chronic kidney disease, unspecified (principal); R53.81 Other malaise; R19.7 Diarrhea, unspecified
CPT/HCPCS: 36415; 80053; 81001; 83735; 83970; 84100; 84443; 85025; 87493

== ENCOUNTER → 2019-03-09 | Outpatient (CLI) | payer MEDICARE, OTHER ==
[2019-03-09 13:11] LABS: HEMATOCRIT 28.4 % (36.0-47.0); HEMOGLOBIN 10.2 g/dL (12.0-15.5); MEAN CORPUSCULAR HEMOGLOBIN 38.4 pg (27.0-33.4); MEAN CORPUSCULAR HGB CONC 35.9 g/dL (32.0-36.0); MEAN CORPUSCULAR VOLUME 107 fl (80-97); PLATELET COUNT 331 10^3/uL (150-450); RED BLOOD COUNT 2.65 10^6/uL (3.72-5.28); RED CELL DISTRIBUTION WIDTH 16.9 % (11.5-14.0); WHITE BLOOD COUNT 5.3 10^3/uL (4.0-10.5)
[2019-03-09 13:37] LABS: ANION GAP 10 (5-19); BLOOD UREA NITROGEN 36 mg/dL (7-20); CALCIUM 9.2 mg/dL (8.4-10.2); CARBON DIOXIDE 21 mmol/L (22-30); CHLORIDE 104 mmol/L (98-107); GLUCOSE 84 mg/dL (75-110); PHOSPHORUS 4.3 mg/dL (2.5-4.5); POTASSIUM 4.7 mmol/L (3.6-5.0); SODIUM 134.5 mmol/L (137-145)
== END ==
LOC: OD 12:25
PROVIDERS: ATTEND Internal Medicine Nephrology
DX: N18.9 Chronic kidney disease, unspecified (principal)
CPT/HCPCS: 36415; 80048; 83735; 84100; 85027

== ENCOUNTER 2019-07-14 09:26 | Inpatient (IN) | payer MEDICARE, OTHER ==
[2019-07-14] MEDS ORDERED: NORMAL SALINE 1000 ML 1,000 ML IV ONE ×2 (10:06→13:34)
--- NOTE | 2019-07-14 10:10 | ER Document Report ---
ED Medical Screen (RME) - General Chief Complaint: Nausea/Vomiting/Diarrhea Stated Complaint: NAUSEA,VOMITING,DIARRHEA Time Seen by Provider: 07/14/19 10:01 Primary Care Provider: Siva VALADEZ MD [Primary Care Provider] - Follow up as needed Mode of Arrival: Medic Information source: Patient Notes: This 59-year-old female presents to the emergency department via EMS for complaints of not feeling well "fluish" for the past week. She reports 4 days ago she started having nausea vomiting and copious diarrhea through her ostomy. Patient reports she has a history of Crohn's and colostomy placement. Denies fever. Upon arrival her temperature was found to be low. Patient reports she just does not feel well. I have greeted and performed a rapid initial assessment of this patient. A comprehensive ED assessment and evaluation of the patient, analysis of test results and completion of the medical decision making process will be conducted by additional ED providers. Dictation of this chart was performed using voice recognition software; therefore, there may be some unintended grammatical errors. TRAVEL OUTSIDE OF THE [place] IN LAST 30 DAYS: No - Related Data Allergies/Adverse Reactions: No Known Drug Allergies Allergy (Verified 07/14/19 09:37) Past Medical History - Past Medical History Cardiac Medical History: Reports: Hx Hypertension Pulmonary Medical History: Denies: Hx Tuberculosis Neurological Medical History: Denies: Hx Seizures Renal/ Medical History: Denies: Hx Peritoneal Dialysis GI Medical History: Reports: Hx Crohn's Disease, Hx Gastroesophageal Reflux Disease Psychiatric Medical History: Reports: Hx Depression Past Surgical History: Reports: Hx Abdominal Surgery - colostomy, Hx Appendectomy, Hx Bowel Surgery, Hx Cholecystectomy, Hx Hysterectomy, Hx Ileostomy, Hx Rectal Surgery, Other - colostomy in 2004 then colon resection and ileostomy in 2012 at [place]. Denies: Hx Pacemaker - Immunizations Hx Diphtheria, Pertussis, Tetanus Vaccination: Yes History of Influenza Vaccine for 08/2017 - 01/2018 Season: No Physical Exam - Vital signs Vitals: Temp Pulse Resp BP Pulse Ox 97.4 F 88 24 H 150/71 H 91 L 07/14/19 09:35 07/14/19 09:35 07/14/19 09:35 07/14/19 09:35 07/14/19 09:35 Course - Vital Signs Vital signs: Temp Pulse Resp BP Pulse Ox 97.4 F 88 24 H 150/71 H 91 L 07/14/19 09:35 07/14/19 09:35 07/14/19 09:35 07/14/19 09:35 07/14/19 09:35 Doctor's Discharge - Discharge Referrals: Siva VALADEZ MD [Primary Care Provider] - Follow up as needed
[2019-07-14 10:14] LABS: ABSOLUTE LYMPHOCYTES (AUTO) 0.6 10^3/uL (0.5-4.7); ABSOLUTE MONOCYTES (AUTO) 0.5 10^3/uL (0.1-1.4); ABSOLUTE NEUT (AUTO) 7.7 10^3/uL (1.7-8.2); BASOPHILS % (AUTO) 0.5 % (0-2); EOSINOPHILS % (AUTO) 0.1 % (0-6); HEMATOCRIT 30.4 % (36.0-47.0); HEMOGLOBIN 11.1 g/dL (12.0-15.5); LYMPHOCYTES % (AUTO) 6.8 % (13-45); MEAN CORPUSCULAR HEMOGLOBIN 38.1 pg (27.0-33.4); MEAN CORPUSCULAR HGB CONC 36.5 g/dL (32.0-36.0); MEAN CORPUSCULAR VOLUME 104 fl (80-97); MONOCYTES % (AUTO) 5.2 % (3-13); PLATELET COUNT 600 10^3/uL (150-450); RED BLOOD COUNT 2.92 10^6/uL (3.72-5.28); RED CELL DISTRIBUTION WIDTH 15.1 % (11.5-14.0); SEGMENTED NEUTROPHILS % (AUTO) 87.4 % (42-78); TOTAL CELLS COUNTED % (AUTO) 100 %; WHITE BLOOD COUNT 8.8 10^3/uL (4.0-10.5)
[2019-07-14 10:32] LABS: ALBUMIN 4.8 g/dL (3.5-5.0); ALKALINE PHOSPHATASE 84 U/L (38-126); ANION GAP 15 (5-19); ASPARTATE AMINO TRANSFERASE 49 U/L (14-36); BILIRUBIN,DIRECT 0.5 mg/dL (0.0-0.4); BILIRUBIN,TOTAL 0.9 mg/dL (0.2-1.3); BLOOD UREA NITROGEN 33 mg/dL (7-20); CALCIUM 9.7 mg/dL (8.4-10.2); CARBON DIOXIDE 30 mmol/L (22-30); CHLORIDE 80 mmol/L (98-107); GLUCOSE 114 mg/dL (75-110); POTASSIUM 3.6 mmol/L (3.6-5.0); TOTAL PROTEIN 9.2 g/dL (6.3-8.2)
[2019-07-14] MEDS ORDERED: ONDANSETRON 4 MG TAB.RAPDIS PO ONE (10:42)
--- NOTE | 2019-07-14 10:52 | RADIOLOGY REPORT (SQ) ---
EXAM DESCRIPTION: CHEST SINGLE VIEW COMPLETED DATE/TIME: 07/14/2019 10:40 am REASON FOR STUDY: cough COMPARISON: \ 01/13/2011 NUMBER OF VIEWS: One view. TECHNIQUE: Single frontal radiographic view of the chest acquired. LIMITATIONS: None. FINDINGS: LUNGS AND PLEURA: Lung buckley are hyperexpanded but clear. No pneumothorax or effusion. MEDIASTINUM AND HILAR STRUCTURES: No masses. Contour normal. HEART AND VASCULAR STRUCTURES: Stable in appearance. No failure. BONES: No acute findings. HARDWARE: None in the chest. OTHER: No other significant finding. IMPRESSION: Hyperexpansion. No other significant findings. TECHNICAL DOCUMENTATION: JOB ID: [id number] [employer]- All Rights Reserved Reading location - IP/workstation name: [email or web address]
[2019-07-14 11:22] LABS: A TYPE INFLUENZA AG NEGATIVE (NEGATIVE); B INFLUENZA AG NEGATIVE (NEGATIVE)
--- NOTE | 2019-07-14 11:25 | RADIOLOGY REPORT (SQ) ---
EXAM DESCRIPTION: CT ABD/PELVIS NO ORAL OR IV COMPLETED DATE/TIME: 07/14/2019 11:11 am REASON FOR STUDY: crohns, diffuse abd pain COMPARISON: 01/19/2018 TECHNIQUE: CT scan of the abdomen and pelvis performed without intravenous or oral contrast. Images reviewed with lung, soft tissue, and bone windows. Reconstructed coronal and sagittal MPR images revi ewed. All images stored on PACS. All CT scanners at this facility use dose modulation, iterative reconstruction, and/or weight based d osing when appropriate to reduce radiation dose to as low as reasonably achievable (ALARA). [facility]: Dose Right [facility]: CareDose [facility]: Dose Right [facility]: Teradose 4D [facility]: [employer] RADIATION DOSE: mGy. LIMITATIONS: None. FINDINGS: LOWER CHEST: Probable atelectasis in the right lung base. Nodular infiltrate in the left base new from prior study. This most likely represents infectious or inflammatory process. NON-CONTRASTED LIVER, SPLEEN, ADRENALS: Evaluation limited by lack of IV contrast. No identified sign ificant masses. PANCREAS: No masses. No peripancreatic inflammatory changes. GALLBLADDER: Surgically absent. RIGHT KIDNEY AND URETER: No suspicious masses. Assessment limited by lack of IV contrast. No signif icant calcifications. No hydronephrosis or hydroureter. LEFT KIDNEY AND URETER: No suspicious masses. Assessment limited by lack of IV contrast. No signifi cant calcifications. No hydronephrosis or hydroureter. There are multiple left renal cysts. AORTA AND RETROPERITONEUM: No aneurysm. No retroperitoneal masses or adenopathy. BOWEL AND PERITONEAL CAVITY: Ostomy site in the left lower quadrant. Mild gastric distention. No ac teller inflammatory changes. APPENDIX: Surgically absent. PELVIS, BLADDER, AND ABDOMINAL WALL:Bladder is distended. BONES: No significant findings. OTHER: No other significant finding. IMPRESSION: 1. Minimal right basilar atelectasis. Nodular infiltrate in the left base either repre sents infectious or inflammatory process. 2. Ostomy site in the left lower quadrant with postsurgical changes involving the colon. No acute i nflammatory changes. No obstruction. No small bowel wall thickening. COMMENT: Quality ID # [id number]: Final reports with documentation of one or more dose reduction techniques (e.g., Automated exposure control, adjustment of the mA and/or kV according to patient size, use of iterative reconstruction technique) TECHNICAL DOCUMENTATION: JOB ID: [id number] [employer]- All Rights Reserved Reading location - IP/workstation name: [email or web address]
[2019-07-14] MEDS ORDERED: METOCLOPRAMIDE HCL INJ/PF 10 MG/2 ML SDV IV ONE (12:10)
[2019-07-14 12:28] LABS: APPEARANCE,URINE CLOUDY; BILIRUBIN,URINE NEGATIVE (NEGATIVE); COLOR,URINE YELLOW; GLUCOSE, URINE NEGATIVE (NEGATIVE); KETONES,URINE NEGATIVE (NEGATIVE); LEUKOCYTE ESTERASE,URINE LARGE (NEGATIVE); NITRITE,URINE NEGATIVE (NEGATIVE); PROTEIN,URINE 100 mg/dL (NEGATIVE); URINE SPECIFIC GRAVITY 1.015; UROBILINOGEN,URINE NEGATIVE mg/dL (<2.0)
[2019-07-14] MEDS ORDERED: CEFTRIAXONE 2 GM/D5W RTU 2 GM/50 ML RTUPB IV ONE (13:13)
[2019-07-14] MEDS ORDERED: AZITHROMYCIN INJ 500 MG VIAL IV ONE (13:13)
--- NOTE | 2019-07-14 13:30 | ER Document Report ---
ED General - General Chief Complaint: Nausea/Vomiting/Diarrhea Stated Complaint: NAUSEA,VOMITING,DIARRHEA Time Seen by Provider: 07/14/19 10:01 Primary Care Provider: Siva VALADEZ MD [ACTIVE STAFF] - Follow up as needed Mode of Arrival: Medic TRAVEL OUTSIDE OF THE [place] IN LAST 30 DAYS: No - HPI Notes: Patient presents with complaints of abdominal pain weakness and cough. She states she is also had multiple episodes of vomiting. She states she has a history of Crohn's. She has had no increased output into the bag. 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 She states her abdominal pain is been diffuse and crampy. It is mainly in the upper part of the abdomen. Nothing makes it better or worse. It does radiate up into her chest. She is also had a nonproductive cough. No significant shortness of breath. She is felt very weak. This is made worse by exertion. Gums are moderate to severe. - Related Data Allergies/Adverse Reactions: No Known Drug Allergies Allergy (Verified 07/14/19 09:37) Past Medical History - General Information source: Patient - Social History Smoking Status: Current Every Day Smoker Frequency of alcohol use: None Drug Abuse: None Family History: Reviewed & Not Pertinent Patient has suicidal ideation: No Patient has homicidal ideation: No - Past Medical History Cardiac Medical History: Reports: Hx Hypertension Pulmonary Medical History: Denies: Hx Tuberculosis Neurological Medical History: Denies: Hx Seizures Renal/ Medical History: Denies: Hx Peritoneal Dialysis GI Medical History: Reports: Hx Crohn's Disease, Hx Gastroesophageal Reflux Disease Psychiatric Medical History: Reports: Hx Depression Past Surgical History: Reports: Hx Abdominal Surgery - colostomy, Hx Appendectomy, Hx Bowel Surgery, Hx Cholecystectomy, Hx Hysterectomy, Hx Ileostomy, Hx Rectal Surgery, Other - colostomy in 2004 then colon resection and ileostomy in 2013 at [place]. Denies: Hx Pacemaker - Immunizations Hx Diphtheria, Pertussis, Tetanus Vaccination: Yes Review of Systems - Review of Systems Constitutional: Malaise, Weakness Cardiovascular: Chest pain. denies: Dyspnea Respiratory: Cough. denies: Short of breath Gastrointestinal: Abdominal pain, Vomiting -: Yes All other systems reviewed and negative Physical Exam - Vital signs Vitals: Temp Pulse Resp BP Pulse Ox 97.4 F 88 24 H 150/71 H 91 L 07/14/19 09:35 07/14/19 09:35 07/14/19 09:35 07/14/19 09:35 07/14/19 09:35 Interpretation: Normal - General General appearance: Appears well, Alert - HEENT Head: Normocephalic, Atraumatic Eyes: Normal Pupils: PERRL - Respiratory Respiratory status: No respiratory distress Chest status: Nontender Breath sounds: Rhonchi - Patient has diffuse rhonchi Chest palpation: Normal - Cardiovascular Rhythm: Regular Heart sounds: Normal auscultation Murmur: No - Abdominal Inspection: Normal Distension: No distension Bowel sounds: Hypoactive Tenderness: Tender - Epigastric area is mildly tender to palpation. No rebound or guarding. Organomegaly: No organomegaly - Rectal Tenderness: No Notes: Rectal exam shows evidence of a chronic fistula. There is no evidence of acute infection or discharge from this area. - Back Back: Normal, Nontender - Extremities General upper extremity: Normal inspection, Nontender, Normal color, Normal ROM, Normal temperature General lower extremity: Normal inspection, Nontender, Normal color, Normal ROM, Normal temperature, Normal weight bearing. No: Christo's sign - Neurological Neuro grossly intact: Yes Cognition: Normal Orientation: AAOx4 Chon Coma Scale Eye Opening: Spontaneous [place] Coma Scale Verbal: Oriented Chon Coma Scale Motor: Obeys Commands Chon Coma Scale Total: 15 Speech: Normal Motor strength normal: LUE, RUE, LLE, RLE Sensory: Normal - Psychological Associated symptoms: Normal affect, Normal mood - Skin Skin Temperature: Warm Skin Moisture: Dry Skin Color: Normal Course - Re-evaluation Re-evalutation: 07/14/19 13:30 Patient's laboratories are significant for dehydration. Also some renal insufficiency. She will be rehydrated with IV fluids. Patient's imaging is consistent with pneumonia. She received antibiotics for this. She also has a urinary tract infection by laboratories which will be covered by the antibiotics. I have spoken to Dr. Flanagan who has agreed to admit the patient. - Vital Signs Vital signs: Temp Pulse Resp BP Pulse Ox 97.4 F 88 24 H 158/93 H 96 07/14/19 09:35 07/14/19 09:35 07/14/19 09:35 07/14/19 11:01 07/14/19 12:00 - Laboratory Result Diagrams: 07/14/19 09:50 07/14/19 09:50 Laboratory results interpreted by me: 07/14/19 07/14/19 07/14/19 09:50 09:50 09:50 RBC 2.92 L Hgb 11.1 L Hct 30.4 L MCV 104 H MCH 38.1 H MCHC 36.5 H RDW 15.1 H Plt Count 600 H Lymph % (Auto) 6.8 L Seg Neutrophils % 87.4 H Sodium 124.7 L Chloride 80 L BUN 33 H Creatinine 3.08 H Est GFR ( Amer) 19 L Est GFR (MDRD) Non-Af 15 L Glucose 114 H Direct Bilirubin 0.5 H AST 49 H Total Protein 9.2 H Lipase 314.9 H Urine Protein Urine Blood Ur Leukocyte Esterase 07/14/19 12:17 RBC Hgb Hct MCV MCH MCHC RDW Plt Count Lymph % (Auto) Seg Neutrophils % Sodium Chloride BUN Creatinine Est GFR ( Amer) Est GFR (MDRD) Non-Af Glucose Direct Bilirubin AST Total Protein Lipase Urine Protein 100 H Urine Blood SMALL H Ur Leukocyte Esterase LARGE H 07/14/19 13:31 Laboratory 07/14/19 07/14/19 07/14/19 09:50 09:50 09:50 WBC 8.8 RBC 2.92 L Hgb 11.1 L Hct 30.4 L MCV 104 H MCH 38.1 H MCHC 36.5 H RDW 15.1 H Plt Count 600 H Lymph % (Auto) 6.8 L [place] % (Auto) 5.2 Eos % (Auto) 0.1 Baso % (Auto) 0.5 Absolute Neuts (auto) 7.7 Absolute Lymphs (auto) 0.6 Absolute Monos (auto) 0.5 Absolute Eos (auto) 0.0 Absolute Basos (auto) 0.0 Seg Neutrophils % 87.4 H Sodium 124.7 L Potassium 3.6 Chloride 80 L Carbon Dioxide 30 Anion Gap 15 BUN 33 H Creatinine 3.08 H Est GFR ( Amer) 19 L Est GFR (MDRD) Non-Af 15 L Glucose 114 H Lactic Acid Calcium 9.7 Total Bilirubin 0.9 Direct Bilirubin 0.5 H Neonat Total Bilirubin Not Reportable Neonat Direct Bilirubin Not Reportable Neonat Indirect Bili Not Reportable AST 49 H ALT 31 Alkaline Phosphatase 84 Total Protein 9.2 H Albumin 4.8 Lipase 314.9 H Urine Color Urine Appearance Urine pH Ur Specific [place] Urine Protein Urine Glucose (UA) Urine Ketones Urine Blood Urine Nitrite Urine Bilirubin Urine Urobilinogen Ur Leukocyte Esterase Urine WBC (Auto) Urine RBC (Auto) U Hyaline Cast (Auto) Urine Bacteria (Auto) Squamous Epi Cells Auto Urine Mucus (Auto) Urine Ascorbic Acid Influenza A (Rapid) Influenza B (Rapid) 07/14/19 07/14/19 07/14/19 10:34 10:45 12:17 WBC RBC Hgb Hct MCV MCH MCHC RDW Plt Count Lymph % (Auto) [place] % (Auto) Eos % (Auto) Baso % (Auto) Absolute Neuts (auto) Absolute Lymphs (auto) Absolute Monos (auto) Absolute Eos (auto) Absolute Basos (auto) Seg Neutrophils % Sodium Potassium Chloride Carbon Dioxide Anion Gap BUN Creatinine Est GFR ( Amer) Est GFR (MDRD) Non-Af Glucose Lactic Acid 1.1 Calcium Total Bilirubin Direct Bilirubin Neonat Total Bilirubin Neonat Direct Bilirubin Neonat Indirect Bili AST ALT Alkaline Phosphatase Total Protein Albumin Lipase Urine Color YELLOW Urine Appearance CLOUDY Urine pH 5.0 Ur Specific [place] 1.015 Urine Protein 100 H Urine Glucose (UA) NEGATIVE Urine Ketones NEGATIVE Urine Blood SMALL H Urine Nitrite NEGATIVE Urine Bilirubin NEGATIVE Urine Urobilinogen NEGATIVE Ur Leukocyte Esterase LARGE H Urine WBC (Auto) 26 Urine RBC (Auto) 7 U Hyaline Cast (Auto) 16 Urine Bacteria (Auto) TRACE Squamous Epi Cells Auto 4 Urine Mucus (Auto) RARE Urine Ascorbic Acid NEGATIVE Influenza A (Rapid) NEGATIVE Influenza B (Rapid) NEGATIVE - Diagnostic Test Radiology reviewed: Image reviewed, Reports reviewed Radiology results interpreted by oh: 07/14/19 13:31 Chest X-Ray 07/14/19 10:06 IMPRESSION: Hyperexpansion. No other significant findings. Abdomen/Pelvis CT 07/14/19 10:43 IMPRESSION: 1. Minimal right basilar atelectasis. Nodular infiltrate in the left base either represents infectious or inflammatory process. 2. Ostomy site in the left lower quadrant with postsurgical changes involving the colon. No acute inflammatory changes. No obstruction. No small bowel wall thickening. - EKG Interpretation by Ok EKG shows normal: Sinus rhythm Rate: Tachycardia - 104 [place]/QRS: No: Right axis deviation, Left axis deviation Discharge - Discharge Clinical Impression: Dehydration, Hyponatremia, Thrombocytosis Pneumonia Qualifiers: Pneumonia type: due to unspecified organism Laterality: left Lung location: lower lobe of lung Qualified Code(s): J18.1 - Lobar pneumonia, unspecified organism UTI (urinary tract infection) Qualifiers: Urinary tract infection type: acute cystitis Hematuria presence: with hematuria Qualified Code(s): N30.01 - Acute cystitis with hematuria Condition: Serious Disposition: ADMITTED INPATIENT Admitting Provider: [facility] Unit Admitted: Telemetry Referrals: Siva VALADEZ MD [ACTIVE STAFF] - Follow up as needed
[2019-07-14] MEDS ORDERED: ONDANSETRON HCL INJ/PF 4 MG/2 ML SDV IV PRN (13:51)
[2019-07-14] MEDS ORDERED: LEVOFLOXACIN 500 MG/D5W RTU 500 MG/100 ML RTUPB IV ONE (15:00)
--- NOTE | 2019-07-14 16:35 | PDOC H&P ---
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 Coombs patient seen at the [facility] and currently follow with the [facility] [place] injection therapy for the Crohn's disease came to the emergency department with the several days not feeling well persistent vomiting and diffuse abdominal cramps and some mild cough congestions In the emergency department patient initial CT abdomen and pelvis that did not show any abdominal issues but questionable pneumonia patient received Rocephin and Zithromax patient is also found acute renal failure and chronic kidney disease with baseline creatinine is 1.[address] Blanchard for that Patient's when I saw it still feeling little nausea patient's denied any issue in the pelvic area with patient have a fistula Patient is denied any chest pain to than any shortness of the breath except dry cough pt also getting remicaid inj q 2month and last was given may 31 pt also schd for endo/colon per gi next month Past Medical History Cardiac Medical History: Reports: Hypertension Pulmonary Medical History: Denies: Tuberculosis Neurological Medical History: Denies: Seizures Renal/ Medical History: Reports: Chronic Kidney Disease GI Medical History: Reports: Crohn's Disease, Gastroesophageal Reflux Disease Psychiatric Medical History: Reports: Depression Hematology: Reports: Anemia Past Surgical History Past Surgical History: Reports: Appendectomy, Cholecystectomy, Hysterectomy, Ileostomy, Other - colostomy in 2004 then colon resection and ileostomy in 2012 at [place] Denies: Pacemaker Social History Information Source: Patient Smoking Status: Current Every Day Smoker Frequency of Alcohol Use: None Hx Recreational Drug Use: No Drugs: None Hx Prescription Drug Abuse: No Family History Family History: Reviewed & Not Pertinent Parental Family History Reviewed: Yes Children Family History Reviewed: Yes Sibling(s) Family History Reviewed.: Yes Medication/Allergy Home Medications: Loperamide HCl [Loperamide] 4 mg PO DAILY 01/19/18 Mercaptopurine 75 mg PO DAILY 01/19/18 Multivit-Min/Iron/Folic/Lutein [Centrum Silver Women Tablet] 1 tab PO DAILY 03/05/18 Mirtazapine [Remeron 15 mg Tablet] 15 mg PO QHS 07/14/19 Sertraline HCl [Zoloft 50 mg Tablet] 50 mg PO DAILY 07/14/19 Allergies/Adverse Reactions: No Known Drug Allergies Allergy (Verified 07/14/19 09:37) Review of Systems Constitutional: PRESENT: anorexia, chills, fatigue, weakness. ABSENT: fever(s), headache(s), weight gain, weight loss Eyes: ABSENT: visual disturbances Ears: ABSENT: hearing changes Cardiovascular: ABSENT: chest pain, dyspnea on exertion, edema, orthropnea, palpitations Respiratory: PRESENT: cough. ABSENT: hemoptysis Gastrointestinal: PRESENT: abdominal pain, nausea, vomiting. ABSENT: constipation, diarrhea, hematemesis, hematochezia Genitourinary: ABSENT: dysuria, hematuria Musculoskeletal: ABSENT: joint swelling Integumentary: ABSENT: rash, wounds Neurological: ABSENT: abnormal gait, abnormal speech, confusion, dizziness, focal weakness, syncope Psychiatric: ABSENT: anxiety, depression, homidical ideation, suicidal ideation Endocrine: ABSENT: cold intolerance, heat intolerance, menstrual abnormalities, polydipsia, polyuria Hematologic/Lymphatic: ABSENT: easy bleeding, easy bruising, lymphadenopathy Physical Exam Vital Signs: Temp Pulse Resp BP Pulse Ox 97.4 F 88 24 H 134/79 H 97 07/14/19 09:35 07/14/19 09:35 07/14/19 09:35 07/14/19 13:01 07/14/19 13:01 Intake & Output 07/13/19 07/14/19 07/15/19 06:59 06:59 06:59 Intake Total 1000 Balance 1000 Weight 46 kg General appearance: PRESENT: no acute distress, well-developed, well-nourished Head exam: PRESENT: atraumatic, normocephalic Eye exam: PRESENT: conjunctiva pink, EOMI, PERRLA. ABSENT: scleral icterus Ear exam: PRESENT: normal external ear exam Mouth exam: PRESENT: moist, tongue midline Neck exam: PRESENT: full ROM. ABSENT: carotid bruit, JVD, lymphadenopathy, thyromegaly Cardiovascular exam: PRESENT: RRR. ABSENT: diastolic murmur, rubs, systolic murmur Pulses: PRESENT: normal dorsalis pedis pul, +2 pedal pulses bilateral Vascular exam: PRESENT: normal capillary refill GI/Abdominal exam: PRESENT: normal bowel sounds, soft. ABSENT: distended, guarding, mass, organolmegaly, rebound, tenderness Additonal comments: Colostomy bag is intact Rectal exam: PRESENT: deferred Neurological exam: PRESENT: alert, awake, oriented to person, oriented to place, oriented to time, oriented to situation, CN II-XII grossly intact. ABSENT: motor sensory deficit Psychiatric exam: PRESENT: appropriate affect, normal mood. ABSENT: homicidal ideation, suicidal ideation Skin exam: PRESENT: dry, intact, warm. ABSENT: cyanosis, rash Results Laboratory Results: 07/14/19 09:50 07/14/19 09:50 07/14/19 07/14/19 07/14/19 09:50 09:50 09:50 WBC 8.8 RBC 2.92 L Hgb 11.1 L Hct 30.4 L MCV 104 H MCH 38.1 H MCHC 36.5 H RDW 15.1 H Plt Count 600 H Seg Neutrophils % 87.4 H Sodium 124.7 L Potassium 3.6 Chloride 80 L Carbon Dioxide 30 Anion Gap 15 BUN 33 H Creatinine 3.08 H Est GFR ( Amer) 19 L Glucose 114 H Lactic Acid Calcium 9.7 Total Bilirubin 0.9 AST 49 H Alkaline Phosphatase 84 Total Protein 9.2 H Albumin 4.8 Lipase 314.9 H Urine Color Urine Appearance Urine pH Ur Specific [place] Urine Protein Urine Glucose (UA) Urine Ketones Urine Blood Urine Nitrite Ur Leukocyte Esterase Urine WBC (Auto) Urine RBC (Auto) 07/14/19 07/14/19 10:34 12:17 WBC RBC Hgb Hct MCV MCH MCHC RDW Plt Count Seg Neutrophils % Sodium Potassium Chloride Carbon Dioxide Anion Gap BUN Creatinine Est GFR ( Amer) Glucose Lactic Acid 1.1 Calcium Total Bilirubin AST Alkaline Phosphatase Total Protein Albumin Lipase Urine Color YELLOW Urine Appearance CLOUDY Urine pH 5.0 Ur Specific [place] 1.015 Urine Protein 100 H Urine Glucose (UA) NEGATIVE Urine Ketones NEGATIVE Urine Blood SMALL H Urine Nitrite NEGATIVE Ur Leukocyte Esterase LARGE H Urine WBC (Auto) 26 Urine RBC (Auto) 7 Impressions: Chest X-Ray 07/14/19 10:06 IMPRESSION: Hyperexpansion. No other significant findings. Abdomen/Pelvis CT 07/14/19 10:43 IMPRESSION: 1. Minimal right basilar atelectasis. Nodular infiltrate in the left base either represents infectious or inflammatory process. 2. Ostomy site in the left lower quadrant with postsurgical changes involving the colon. No acute inflammatory changes. No obstruction. No small bowel wall thickening. Assessment & Plan - Diagnosis (1) Dehydration Is this a current diagnosis for this admission?: Yes Plan: Start the patient on IV fluids (2) Hyponatremia Is this a current diagnosis for this admission?: Yes Plan: Most likely due to the above conditions continues to IV fluidConsult the Dr. Blanchard (3) Pneumonia Qualifiers: Pneumonia type: due to unspecified organism Laterality: left Lung location: lower lobe of lung Qualified Code(s): J18.1 - Lobar pneumonia, unspecified organism Is this a current diagnosis for this admission?: Yes Plan: Start the patient on IV antibiotics (4) UTI (urinary tract infection) Qualifiers: Urinary tract infection type: acute cystitis Hematuria presence: with hematuria Qualified Code(s): N30.01 - Acute cystitis with hematuria Is this a current diagnosis for this admission?: Yes Plan: Patient have a recurrent urinary tract infections we will send the urine for the culture (5) ALEX (acute kidney injury) Is this a current diagnosis for this admission?: Yes Plan: Due to the dehydration's we will consult the Dr. Blanchard continues to IV fluid (6) Abdominal pain Qualifiers: Abdominal location: generalized Qualified Code(s): R10.84 - Generalized abdominal pain Is this a current diagnosis for this admission?: Yes Plan: Most likely due to the Crohn's disease patient currently put on a Protonix 40 mg twice a day continues cover with antibiotic consult surgery due to the patient has significant history in the past about the fistula and Crohn's colitis and colostomy to be further evaluate (7) Anemia Qualifiers: Anemia type: iron deficiency Is this a current diagnosis for this admission?: Yes Plan: Due to the chronic disease (8) Crohns disease Qualifiers: Digestive disease complication type: unspecified complication Is this a current diagnosis for this admission?: Yes Plan: Currently follow with the GI and outpatient (9) Rectovaginal fistula Is this a current diagnosis for this admission?: Yes Plan: We will consult the surgery for further evaluate (10) Vomiting Qualifiers: Is this a current diagnosis for this admission?: Yes Plan: Continues to IV Zofran clear liquid diets for next 24 hoursConsult surgery whether patients need any endoscopy or not - Time Time Spent: 50 to 70 Minutes Medications reviewed and adjusted accordingly: Yes Anticipated discharge: Home Within: Other - Inpatient Certification Based on my medical assessment, after consideration of the patient's comorbidities, presenting symptoms, or acuity I expect that the services needed warrant INPATIENT care.: Yes I certify that my determination is in accordance with my understanding of Medicare's requirements for reasonable and necessary INPATIENT services [42 CFR 412.3e].: Yes Medical Necessity: Significant Comorbidiites Make Outpatient Treatment Too Risky, Need For IV Fluids, Need for IV Antibiotics Post Hospital Care: D/C [employer] Documentation - Plan Summary Plan Summary: Admit in Telemetry bed See MD orders will inform pt nice who close to pt and no other family
[2019-07-14] MEDS ORDERED: PANTOPRAZOLE SODIUM 40 MG TABLET.DR PO SCH (17:00)
--- NOTE | 2019-07-14 17:06 | RADIOLOGY REPORT (SQ) ---
EXAM DESCRIPTION: CT CHEST WITHOUT COMPLETED DATE/TIME: 07/14/2019 4:55 pm REASON FOR STUDY: cough/pnemonia COMPARISON: Chest x-ray done earlier the same day. TECHNIQUE: CT scan performed of the chest without intravenous contrast. Images reviewed with lung, soft tissue and bone windows. Reconstructed coronal and sagittal MPR images reviewed. All images st ored on PACS. All CT scanners at this facility use dose modulation, iterative reconstruction, and/or weight based d osing when appropriate to reduce radiation dose to as low as reasonably achievable (ALARA). [facility]: Dose Right [facility]: CareDose [facility]: Dose Right [facility]: Teradose 4D [facility]: Wildfire [place] RADIATION DOSE: CT Rad equipment meets quality standard of care and radiation dose reduction techniq ues were employed. CTDIvol: 4.8 mGy. DLP: 231 mGy-cm. mGy. LIMITATIONS: No technical limitations. FINDINGS: LUNGS AND PLEURA: There is hyperexpansion. There is focal atelectasis and/or pneumonia in the right medial base. There is nodular infiltrate in the left lower lobe. This has a tree in bud appearance most likely infectious or inflammatory. HILAR AND MEDIASTINAL STRUCTURES: No identified masses or abnormal nodes. No obvious aneurysm. HEART AND VASCULAR STRUCTURES: No aneurysm. No pericardial effusion. UPPER ABDOMEN: No significant findings. Limited exam. THYROID AND OTHER SOFT TISSUES: No masses. No adenopathy. BONES: No significant finding. HARDWARE: None in the chest. OTHER: No other significant findings. IMPRESSION: 1. Focal airspace disease in the right medial base either atelectasis or pneumonia. 2. Nodular infiltrate in the left base most likely infectious or inflammatory. There is mild hypere xpansion. TECHNICAL DOCUMENTATION: JOB ID: [id number] Quality ID # [id number]: Final reports with documentation of one or more dose reduction techniques (e.g., Au tomated exposure control, adjustment of the mA and/or kV according to patient size, use of iterative reconstruction technique) 2010 [employer]- All Rights Reserved Reading location - IP/workstation name: [email or web address]
[2019-07-14] MEDS: CEFEPIME 1 GM/D5W RTU 1 GM/50 ML RTUPB IV SCH (21:53)
[2019-07-14] MEDS: NORMAL SALINE 1000 ML 1,000 ML IV PRN (21:53)
[2019-07-14] MEDS: PANTOPRAZOLE SODIUM 40 MG VIAL IV SCH (21:53)
[2019-07-14] MEDS: ACETAMINOPHEN 325 MG TABLET PO PRN (21:53)
--- NOTE | 2019-07-14 23:19 | PDOC CONSULTATION ---
Consultation Consult Date: 07/14/19 Provider Consulted: SURGICAL SURGICALIST Consult reason:: Crohn's disease, abdominal pain. History of Present Illness Admission Date/PCP: 07/14/19 14:02 NUPUR COTE MD Patient complains of: Cough, shortness of breath, pneumonia History of Present Illness: ROQUE MULLER is a 59 year old female with a long history of Crohn's disease. She has a left lower quadrant ostomy present. The patient reports a several day history of productive cough. The patient reports that she has coughed so hard that she began experiencing abdominal pain. At this time, her abdominal pain has improved significantly. Patient denies nausea or vomiting. She reports that her ostomy is productive. She is currently maintained on injection and oral medications for her Crohn's. Her GI physician is in [place]. Currently, she denies chest pain, headaches, blurry vision, fevers, chills, melena, hematochezia, hematemesis, orthostasis, fatigue. She does report a productive cough, mild shortness of breath, and malaise. Past Medical History Cardiac Medical History: Reports: Hypertension Pulmonary Medical History: Denies: Tuberculosis Neurological Medical History: Denies: Seizures Renal/ Medical History: Reports: Chronic Kidney Disease GI Medical History: Reports: Crohn's Disease, Gastroesophageal Reflux Disease Psychiatric Medical History: Reports: Depression Hematology: Reports: Anemia Past Surgical History Past Surgical History: Reports: Appendectomy, Cholecystectomy, Hysterectomy, Ileostomy, Other - colostomy in 2004 then colon resection and ileostomy in 2012 at [place] Denies: Pacemaker Social History Smoking Status: Current Every Day Smoker Frequency of Alcohol Use: None Hx Recreational Drug Use: No Drugs: None Hx Prescription Drug Abuse: No - Advance Directive Resuscitation Status: Full Code Family History Family History: Reviewed & Not Pertinent Parental Family History Reviewed: Yes Children Family History Reviewed: Yes Sibling(s) Family History Reviewed.: Yes Medication/Allergy Home Medications: Loperamide HCl [Loperamide] 4 mg PO DAILY 01/19/18 Mercaptopurine 75 mg PO DAILY 01/19/18 Multivit-Min/Iron/Folic/Lutein [Centrum Silver Women Tablet] 1 tab PO DAILY 01/19/18 Mirtazapine [Remeron 15 mg Tablet] 15 mg PO QHS 07/14/19 Sertraline HCl [Zoloft 50 mg Tablet] 50 mg PO DAILY 07/14/19 Allergies/Adverse Reactions: No Known Drug Allergies Allergy (Verified 07/14/19 09:37) Review of Systems Constitutional: ABSENT: chills, fatigue, fever(s) Eyes: ABSENT: visual disturbances Ears: ABSENT: hearing changes Nose, Mouth, and Throat: ABSENT: mouth pain, sore throat Cardiovascular: PRESENT: dyspnea on exertion Respiratory: PRESENT: cough Gastrointestinal: PRESENT: abdominal pain. ABSENT: hematemesis, hematochezia, melena, nausea, vomiting Genitourinary: ABSENT: difficulty urinating Musculoskeletal: ABSENT: back pain Integumentary: ABSENT: pruritus, rash Neurological: ABSENT: confusion, convulsions, dizziness Psychiatric: ABSENT: anxiety, depression Endocrine: ABSENT: cold intolerance, heat intolerance Hematologic/Lymphatic: ABSENT: easy bleeding, easy bruising Physical Exam Vital Signs: Temp Pulse Resp BP Pulse Ox 97.6 F 74 20 142/81 H 95 07/14/19 21:00 07/14/19 21:00 07/14/19 21:00 07/14/19 21:00 07/14/19 21:00 Intake & Output 07/13/19 07/14/19 07/15/19 06:59 06:59 06:59 Intake Total 2150 Balance 2150 Weight 47.4 kg General appearance: PRESENT: thin Head exam: PRESENT: atraumatic, normocephalic Eye exam: PRESENT: EOMI, PERRLA. ABSENT: scleral icterus Mouth exam: PRESENT: moist, neck supple Neck exam: ABSENT: meningismus, tenderness, thyromegaly, tracheal deviation Respiratory exam: PRESENT: rhonchi, unlabored. ABSENT: chest wall tenderness Cardiovascular exam: PRESENT: RRR Pulses: PRESENT: normal radial pulses Vascular exam: PRESENT: normal capillary refill, pallor GI/Abdominal exam: PRESENT: soft, other - Very thin abdominal wall. I suspect there is a ventral midline hernia, but it is difficult to ascertain due to her very thin abdominal wall.. ABSENT: rebound, rigid, tenderness Rectal exam: PRESENT: deferred Extremities exam: ABSENT: clubbing Musculoskeletal exam: ABSENT: deformity Neurological exam: PRESENT: alert, awake, oriented to person, oriented to place, oriented to time, oriented to situation Psychiatric exam: ABSENT: agitated, anxious, depressed Focused psych exam: ABSENT: delusional Skin exam: ABSENT: cyanosis, erythema, jaundice Results Laboratory Results: 07/14/19 09:50 07/14/19 09:50 07/14/19 07/14/19 07/14/19 09:50 09:50 09:50 WBC 8.8 RBC 2.92 L Hgb 11.1 L Hct 30.4 L MCV 104 H MCH 38.1 H MCHC 36.5 H RDW 15.1 H Plt Count 600 H Seg Neutrophils % 87.4 H Sodium 124.7 L Potassium 3.6 Chloride 80 L Carbon Dioxide 30 Anion Gap 15 BUN 33 H Creatinine 3.08 H Est GFR ( Amer) 19 L Glucose 114 H Lactic Acid Calcium 9.7 Total Bilirubin 0.9 AST 49 H Alkaline Phosphatase 84 Total Protein 9.2 H Albumin 4.8 Lipase 314.9 H Urine Color Urine Appearance Urine pH Ur Specific [place] Urine Protein Urine Glucose (UA) Urine Ketones Urine Blood Urine Nitrite Ur Leukocyte Esterase Urine WBC (Auto) Urine RBC (Auto) 07/14/19 07/14/19 10:34 12:17 WBC RBC Hgb Hct MCV MCH MCHC RDW Plt Count Seg Neutrophils % Sodium Potassium Chloride Carbon Dioxide Anion Gap BUN Creatinine Est GFR ( Amer) Glucose Lactic Acid 1.1 Calcium Total Bilirubin AST Alkaline Phosphatase Total Protein Albumin Lipase Urine Color YELLOW Urine Appearance CLOUDY Urine pH 5.0 Ur Specific [place] 1.015 Urine Protein 100 H Urine Glucose (UA) NEGATIVE Urine Ketones NEGATIVE Urine Blood SMALL H Urine Nitrite NEGATIVE Ur Leukocyte Esterase LARGE H Urine WBC (Auto) 26 Urine RBC (Auto) 7 Impressions: Chest CT 07/14/19 00:00 IMPRESSION: 1. Focal airspace disease in the right medial base either atelectasis or pneumonia. 2. Nodular infiltrate in the left base most likely infectious or inflammatory. There is mild hyperexpansion. Chest X-Ray 07/14/19 10:06 IMPRESSION: Hyperexpansion. No other significant findings. Abdomen/Pelvis CT 07/14/19 10:43 IMPRESSION: 1. Minimal right basilar atelectasis. Nodular infiltrate in the left base either represents infectious or inflammatory process. 2. Ostomy site in the left lower quadrant with postsurgical changes involving the colon. No acute inflammatory changes. No obstruction. No small bowel wall thickening. Assessment & Plan - Diagnosis (1) Abdominal pain Qualifiers: Abdominal location: generalized Qualified Code(s): R10.84 - Generalized abdominal pain Is this a current diagnosis for this admission?: Yes - Plan Summary Plan Summary: This is a 59-year-old female with Crohn's disease. She reported abdominal pain, that has now resolved. I reviewed her CT scan images and report. I do not see any evidence for significant intra-abdominal pathology. I do believe the patient has a ventral midline hernia, however her abdominal wall is so thin and flaccid that it is difficult to identify a specific defect. At this time, I see no indication for surgical intervention. I recommend continuation of her Yovana siddiqui's medications. Gastroenterology input may be prudent. Surgery will sign off at this time. Please renotify with any questions or concerns.
[2019-07-15 05:38] LABS: ALBUMIN 3.8 g/dL (3.5-5.0); ALKALINE PHOSPHATASE 63 U/L (38-126); ANION GAP 11 (5-19); ASPARTATE AMINO TRANSFERASE 36 U/L (14-36); BILIRUBIN,DIRECT 0.4 mg/dL (0.0-0.4); BILIRUBIN,TOTAL 0.6 mg/dL (0.2-1.3); BLOOD UREA NITROGEN 23 mg/dL (7-20); CALCIUM 8.6 mg/dL (8.4-10.2); CARBON DIOXIDE 25 mmol/L (22-30); CHLORIDE 92 mmol/L (98-107); GLUCOSE 80 mg/dL (75-110); POTASSIUM 3.6 mmol/L (3.6-5.0); TOTAL PROTEIN 6.9 g/dL (6.3-8.2)
[2019-07-15 06:44] LABS: ABSOLUTE BASOPHILS # (AUTO) 0.1 10^3/uL (0.0-0.2); ABSOLUTE EOSINOPHILS # (AUTO) 0.1 10^3/uL (0.0-0.6); ABSOLUTE LYMPHOCYTES (AUTO) 0.7 10^3/uL (0.5-4.7); ABSOLUTE MONOCYTES (AUTO) 0.8 10^3/uL (0.1-1.4); ABSOLUTE NEUT (AUTO) 5.3 10^3/uL (1.7-8.2); EOSINOPHILS % (AUTO) 0.8 % (0-6); HEMATOCRIT 26.7 % (36.0-47.0); HEMOGLOBIN 9.5 g/dL (12.0-15.5); LYMPHOCYTES % (AUTO) 10.3 % (13-45); MONOCYTES % (AUTO) 11.9 % (3-13); PLATELET COUNT 467 10^3/uL (150-450); RED CELL DISTRIBUTION WIDTH 15.7 % (11.5-14.0); TOTAL CELLS COUNTED % (AUTO) 100 %
[2019-07-15 06:50] LABS: MEAN CORPUSCULAR HEMOGLOBIN 36.2 pg (27.0-33.4); MEAN CORPUSCULAR HGB CONC 35.6 g/dL (32.0-36.0); MEAN CORPUSCULAR VOLUME 102 fl (80-97); RED BLOOD COUNT 2.62 10^6/uL (3.72-5.28)
[2019-07-15] MEDS: NORMAL SALINE 1000 ML 1,000 ML IV PRN ×2 (07:40→21:25)
[2019-07-15] MEDS: ACETAMINOPHEN 325 MG TABLET PO PRN (07:45)
--- NOTE | 2019-07-15 08:48 | PDOC PROGRESS REPORT ---
Subjective Progress Note for:: 07/15/19 Subjective:: Patient is currently doing fair still complaining of some mild cough and congestions Patient is denied any chest pain still feels short of breath CT of the chest showing some inflammatory or infectious process in the left side of the lung Patient's currently taking the Remicade injections for the Crohn's disease Patient's nausea and vomiting is also improving Patient seen by the general surgery no surgical interventions required at this point Reason For Visit: RENAL FAILURE, N/V/D, PNEUMONIA Physical Exam Vital Signs: Temp Pulse Resp BP Pulse Ox 97.6 F 71 12 151/80 H 95 07/15/19 07:53 07/15/19 07:53 07/15/19 07:53 07/15/19 07:53 07/15/19 07:53 Intake & Output 07/14/19 07/15/19 07/16/19 06:59 06:59 06:59 Intake Total 2932 978 Balance 2932 978 Weight 47.4 kg General appearance: PRESENT: no acute distress, well-developed, well-nourished Head exam: PRESENT: atraumatic, normocephalic Eye exam: PRESENT: conjunctiva pink, EOMI, PERRLA. ABSENT: scleral icterus Ear exam: PRESENT: normal external ear exam Mouth exam: PRESENT: moist, tongue midline Neck exam: PRESENT: full ROM. ABSENT: carotid bruit, JVD, lymphadenopathy, thyromegaly Respiratory exam: PRESENT: clear to auscultation quita Cardiovascular exam: PRESENT: RRR. ABSENT: diastolic murmur, rubs, systolic murmur Pulses: PRESENT: normal dorsalis pedis pul, +2 pedal pulses bilateral Vascular exam: PRESENT: normal capillary refill GI/Abdominal exam: PRESENT: normal bowel sounds, soft. ABSENT: distended, guarding, mass, organolmegaly, rebound, tenderness Additonal comments: Colostomy bag is present Rectal exam: PRESENT: deferred Neurological exam: PRESENT: alert, awake, oriented to person, oriented to place, oriented to time, oriented to situation, CN II-XII grossly intact. ABSENT: motor sensory deficit Psychiatric exam: PRESENT: appropriate affect, normal mood. ABSENT: homicidal ideation, suicidal ideation Skin exam: PRESENT: dry, intact, warm. ABSENT: cyanosis, rash Results Laboratory Results: 07/15/19 04:14 07/15/19 04:14 07/14/19 07/14/19 07/14/19 09:50 09:50 09:50 WBC 8.8 RBC 2.92 L Hgb 11.1 L Hct 30.4 L MCV 104 H MCH 38.1 H MCHC 36.5 H RDW 15.1 H Plt Count 600 H Seg Neutrophils % 87.4 H Sodium 124.7 L Potassium 3.6 Chloride 80 L Carbon Dioxide 30 Anion Gap 15 BUN 33 H Creatinine 3.08 H Est GFR ( Amer) 19 L Glucose 114 H Lactic Acid Calcium 9.7 Magnesium Total Bilirubin 0.9 AST 49 H Alkaline Phosphatase 84 Total Protein 9.2 H Albumin 4.8 Lipase 314.9 H Urine Color Urine Appearance Urine pH Ur Specific [place] Urine Protein Urine Glucose (UA) Urine Ketones Urine Blood Urine Nitrite Ur Leukocyte Esterase Urine WBC (Auto) Urine RBC (Auto) Stool for White Cells 07/14/19 07/14/19 07/15/19 10:34 12:17 02:20 WBC RBC Hgb Hct MCV MCH MCHC RDW Plt Count Seg Neutrophils % Sodium Potassium Chloride Carbon Dioxide Anion Gap BUN Creatinine Est GFR ( Amer) Glucose Lactic Acid 1.1 Calcium Magnesium Total Bilirubin AST Alkaline Phosphatase Total Protein Albumin Lipase Urine Color YELLOW Urine Appearance CLOUDY Urine pH 5.0 Ur Specific [place] 1.015 Urine Protein 100 H Urine Glucose (UA) NEGATIVE Urine Ketones NEGATIVE Urine Blood SMALL H Urine Nitrite NEGATIVE Ur Leukocyte Esterase LARGE H Urine WBC (Auto) 26 Urine RBC (Auto) 7 Stool for White Cells NO WBCs SEEN 07/15/19 07/15/19 04:14 04:14 WBC 7.0 RBC 2.62 L Hgb 9.5 L Hct 26.7 L MCV 102 H MCH 36.2 H MCHC 35.6 RDW 15.7 H Plt Count 467 H Seg Neutrophils % 76.0 Sodium 127.9 L Potassium 3.6 Chloride 92 L Carbon Dioxide 25 Anion Gap 11 BUN 23 H Creatinine 1.71 H Est GFR ( Amer) 37 L Glucose 80 Lactic Acid Calcium 8.6 Magnesium 1.6 Total Bilirubin 0.6 AST 36 Alkaline Phosphatase 63 Total Protein 6.9 Albumin 3.8 Lipase 254.9 Urine Color Urine Appearance Urine pH Ur Specific [place] Urine Protein Urine Glucose (UA) Urine Ketones Urine Blood Urine Nitrite Ur Leukocyte Esterase Urine WBC (Auto) Urine RBC (Auto) Stool for White Cells Impressions: Chest CT 07/14/19 00:00 IMPRESSION: 1. Focal airspace disease in the right medial base either atelectasis or pneumonia. 2. Nodular infiltrate in the left base most likely infectious or inflammatory. There is mild hyperexpansion. Chest X-Ray 07/14/19 10:06 IMPRESSION: Hyperexpansion. No other significant findings. Abdomen/Pelvis CT 07/14/19 10:43 IMPRESSION: 1. Minimal right basilar atelectasis. Nodular infiltrate in the left base either represents infectious or inflammatory process. 2. Ostomy site in the left lower quadrant with postsurgical changes involving the colon. No acute inflammatory changes. No obstruction. No small bowel wall thickening. Assessment & Plan - Diagnosis (1) Dehydration Is this a current diagnosis for this admission?: Yes Plan: Continues to IV fluid (2) Hyponatremia Is this a current diagnosis for this admission?: Yes Plan: Currently all improving (3) Pneumonia Qualifiers: Pneumonia type: due to unspecified organism Laterality: left Lung locat ion: lower lobe of lung Qualified Code(s): J18.1 - Lobar pneumonia, unspecified organism Is this a current diagnosis for this admission?: Yes Plan: Continues to IV antibiotic with this abnormal CT of the chest consult the pulmonary because of the ongoing short of breath with some immunocompromise due to the Remicade injections to further evaluate (4) UTI (urinary tract infection) Qualifiers: Urinary tract infection type: acute cystitis Hematuria presence: with hematuria Qualified Code(s): N30.01 - Acute cystitis with hematuria Is this a current diagnosis for this admission?: Yes Plan: Patient have a recurrent urinary tract infections we will send the urine for the culture (5) ALEX (acute kidney injury) Is this a current diagnosis for this admission?: Yes Plan: Currently improving (6) Abdominal pain Qualifiers: Abdominal location: generalized Qualified Code(s): R10.84 - Generalized abdominal pain Is this a current diagnosis for this admission?: Yes Plan: Continues to Protonix (7) Anemia Qualifiers: Anemia type: iron deficiency Is this a current diagnosis for this admission?: Yes Plan: Due to the chronic disease (8) Crohns disease Qualifiers: Digestive disease complication type: unspecified complication Is this a current diagnosis for this admission?: Yes Plan: Currently follow with the GI and outpatient (9) Rectovaginal fistula Is this a current diagnosis for this admission?: Yes (10) Vomiting Qualifiers: Is this a current diagnosis for this admission?: Yes Plan: Currently all improving - Time Time Spent with patient: 15-24 minutes Medications reviewed and adjusted accordingly: Yes Anticipated discharge: Home Within: Other - Plan Summary Plan Summary: We will consult the pulmonary because of the ongoing shortness of the breath and abnormal CT scan Continues to IV antibiotic We will get the echocardiogram
[2019-07-15] MEDS ORDERED: TUBERCULIN,PURIF.PROT.DERIV. 5 TU/0.1 ML TEST 1 ML VIAL ID ONE (10:00)
[2019-07-15] MEDS: PANTOPRAZOLE SODIUM 40 MG VIAL IV SCH ×2 (10:16→21:24)
[2019-07-15] MEDS: CEFEPIME 1 GM/D5W RTU 1 GM/50 ML RTUPB IV SCH ×2 (10:17→21:24)
[2019-07-15] MEDS: ENOXAPARIN SODIUM INJ 30 MG/0.3 ML DISP.SYRIN SUBCUT SCH (10:17)
[2019-07-15] MEDS: ACETYLCYSTEINE 20% SOLN 800 MG/4 ML VIAL.NEB NEB SCH ×3 (10:40→19:38)
--- NOTE | 2019-07-15 11:16 | PDOC CONSULTATION ---
Consultation Consult Date: 07/15/19 Attending physician:: NUPUR COTE Provider Consulted: JERALD IRELAND Consult reason:: abnormal CT scan History of Present Illness Admission Date/PCP: 07/14/19 14:02 NUPUR COTE MD History of Present Illness: ROQUE MULLER is a 59 year old female, presented to the emergency room with abdominal pain she has had a long history of Crohn's disease with multiple complications since currently on Remicade she also admits that for the last week or so she is been coughing and congested but has loose no sputum productions 70 aware of any fever she might of had some chills she denies hemoptysis or PPD status is unknown she is had no history of chronic lung disease as a child or adolescent she admits to exposure to passive smoke as a child as well as an adult care self smoked a pack a day 53 years and continues to smoke. 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 She has 1 dog no recent travel she denies angina-like chest pain sleeps on 3 pillows for comfort no PND no nocturnal cough no edema she admits to snoring restless sleep nocturia 2-3 times per night unrestful sleep but she denies excessive daytime somnolence. Past Medical History Cardiac Medical History: Reports: Hypertension Pulmonary Medical History: Denies: Tuberculosis Neurological Medical History: Denies: Seizures Endocrine Medical History: Denies: Obesity Renal/ Medical History: Reports: Chronic Kidney Disease GI Medical History: Reports: Crohn's Disease, Gastroesophageal Reflux Disease Denies: Hepatitis, Ulcerative Colitis Musculoskeltal Medical History: Denies: Fibromyalgia, Gout Skin Medical History: Denies: Psoriasis Psychiatric Medical History: Reports: Depression, Tobacco Dependency Hematology: Reports: Anemia Infectious Medical History: Denies: Methicillin-Resistant Staph Aureus, Vancomycin-Resistant Enterococci Past Surgical History Past Surgical History: Reports: Appendectomy, Cholecystectomy, Hysterectomy, Ileostomy, Other - colostomy in 2004 then colon resection and ileostomy in 2012 at [place] Denies: Pacemaker Social History Information Source: Patient, [facility] Records Smoking Status: Current Every Day Smoker Cigarettes Packs Per Day: 1 Number of Years Smokin Passive smoke exposure as: Both Frequency of Alcohol Use: None Hx Recreational Drug Use: No Drugs: None Hx Prescription Drug Abuse: No Do you have pets?: Yes Have you had any respiratory illnesses as a child?: No Have you been exposed to any sick contacts recently?: No Have you had any recent respiratory illnesses?: Yes Have you travelled outside of [place] in the past 12 months?: Yes - Advance Directive Resuscitation Status: Full Code Family History Family History: DM, Hypertension Parental Family History Reviewed: Yes Children Family History Reviewed: Yes Sibling(s) Family History Reviewed.: Yes Medication/Allergy Home Medications: Loperamide HCl [Loperamide] 4 mg PO DAILY 01/19/18 Mercaptopurine 75 mg PO DAILY 01/19/18 Multivit-Min/Iron/Folic/Lutein [Centrum Silver Women Tablet] 1 tab PO DAILY 01/19/18 Mirtazapine [Remeron 15 mg Tablet] 15 mg PO QHS 07/14/19 Sertraline HCl [Zoloft 50 mg Tablet] 50 mg PO DAILY 07/14/19 Allergies/Adverse Reactions: No Known Drug Allergies Allergy (Verified 07/14/19 09:37) Review of Systems Constitutional: PRESENT: chills, fatigue, weight loss. ABSENT: headache(s), n ight sweats, weakness Eyes: ABSENT: visual disturbances Ears: ABSENT: hearing changes Nose, Mouth, and Throat: ABSENT: sore throat Cardiovascular: PRESENT: chest pain, dyspnea on exertion. ABSENT: palpitations Respiratory: PRESENT: cough, dyspnea. ABSENT: hemoptysis Gastrointestinal: PRESENT: abdominal pain, nausea Genitourinary: PRESENT: nocturia. ABSENT: dysuria, hematuria Musculoskeletal: ABSENT: deformity, joint swelling Integumentary: ABSENT: pruritus, rash Neurological: ABSENT: abnormal gait, abnormal movements, abnormal speech, confus ion, focal weakness, frequent falls, lack of coordination, memory loss Psychiatric: PRESENT: depression. ABSENT: hallucinations, homidical ideation, suicidal ideation Endocrine: ABSENT: cold intolerance, heat intolerance, polydipsia, polyuria Hematologic/Lymphatic: PRESENT: easy bruising. ABSENT: easy bleeding, lymphadenopathy Allergic/Immunologic: PRESENT: seasonal rhinorrhea Physical Exam Vital Signs: Temp Pulse Resp BP Pulse Ox 97.6 F 71 12 151/80 H 95 07/15/19 07:53 07/15/19 07:53 07/15/19 07:53 07/15/19 07:53 07/15/19 07:53 Intake & Output 07/14/19 07/15/19 07/16/19 06:59 06:59 06:59 Intake Total 2932 978 Balance 2932 978 Weight 47.4 kg General appearance: PRESENT: no acute distress, cooperative, thin Head exam: PRESENT: atraumatic, normocephalic Eye exam: PRESENT: conjunctiva pale, EOMI. ABSENT: nystagmus, periorbital swelling, scleral icterus Mouth exam: PRESENT: moist, neck supple, tongue midline Teeth exam: PRESENT: edentulous Neck exam: ABSENT: carotid bruit, full ROM, JVD, lymphadenopathy, meningismus, tenderness, thyromegaly, tracheal deviation, tracheostomy, other Respiratory exam: PRESENT: decreased breath sounds, prolonged expiratory phas, rales, rhonchi, unlabored. ABSENT: retraction, stridor, tachypnea Cardiovascular exam: PRESENT: RRR, +S1, +S2. ABSENT: tachycardia Pulses: PRESENT: normal radial pulses GI/Abdominal exam: PRESENT: other - Ostomy. ABSENT: mass Extremities exam: ABSENT: joint swelling, tenderness Musculoskeletal exam: ABSENT: deformity, dislocation Neurological exam: PRESENT: alert, awake Psychiatric exam: PRESENT: appropriate affect Skin exam: PRESENT: dry, warm Results Laboratory Results: 07/15/19 04:14 07/15/19 04:14 07/14/19 07/14/19 07/14/19 09:50 09:50 09:50 WBC 8.8 RBC 2.92 L Hgb 11.1 L Hct 30.4 L MCV 104 H MCH 38.1 H MCHC 36.5 H RDW 15.1 H Plt Count 600 H Seg Neutrophils % 87.4 H Sodium 124.7 L Potassium 3.6 Chloride 80 L Carbon Dioxide 30 Anion Gap 15 BUN 33 H Creatinine 3.08 H Est GFR ( Amer) 19 L Glucose 114 H Lactic Acid Calcium 9.7 Magnesium Total Bilirubin 0.9 AST 49 H Alkaline Phosphatase 84 Total Protein 9.2 H Albumin 4.8 Lipase 314.9 H Urine Color Urine Appearance Urine pH Ur Specific [place] Urine Protein Urine Glucose (UA) Urine Ketones Urine Blood Urine Nitrite Ur Leukocyte Esterase Urine WBC (Auto) Urine RBC (Auto) Stool for White Cells 07/14/19 07/14/19 07/15/19 10:34 12:17 02:20 WBC RBC Hgb Hct MCV MCH MCHC RDW Plt Count Seg Neutrophils % Sodium Potassium Chloride Carbon Dioxide Anion Gap BUN Creatinine Est GFR ( Amer) Glucose Lactic Acid 1.1 Calcium Magnesium Total Bilirubin AST Alkaline Phosphatase Total Protein Albumin Lipase Urine Color YELLOW Urine Appearance CLOUDY Urine pH 5.0 Ur Specific [place] 1.015 Urine Protein 100 H Urine Glucose (UA) NEGATIVE Urine Ketones NEGATIVE Urine Blood SMALL H Urine Nitrite NEGATIVE Ur Leukocyte Esterase LARGE H Urine WBC (Auto) 26 Urine RBC (Auto) 7 Stool for White Cells NO WBCs SEEN 07/15/19 07/15/19 04:14 04:14 WBC 7.0 RBC 2.62 L Hgb 9.5 L Hct 26.7 L MCV 102 H MCH 36.2 H MCHC 35.6 RDW 15.7 H Plt Count 467 H Seg Neutrophils % 76.0 Sodium 127.9 L Potassium 3.6 Chloride 92 L Carbon Dioxide 25 Anion Gap 11 BUN 23 H Creatinine 1.71 H Est GFR ( Amer) 37 L Glucose 80 Lactic Acid Calcium 8.6 Magnesium 1.6 Total Bilirubin 0.6 AST 36 Alkaline Phosphatase 63 Total Protein 6.9 Albumin 3.8 Lipase 254.9 Urine Color Urine Appearance Urine pH Ur Specific [place] Urine Protein Urine Glucose (UA) Urine Ketones Urine Blood Urine Nitrite Ur Leukocyte Esterase Urine WBC (Auto) Urine RBC (Auto) Stool for White Cells Impressions: Chest CT 07/14/19 00:00 IMPRESSION: 1. Focal airspace disease in the right medial base either atelectasis or pneumonia. 2. Nodular infiltrate in the left base most likely infectious or inflammatory. There is mild hyperexpansion. Chest X-Ray 07/14/19 10:06 IMPRESSION: Hyperexpansion. No other significant findings. Abdomen/Pelvis CT 07/14/19 10:43 IMPRESSION: 1. Minimal right basilar atelectasis. Nodular infiltrate in the left base either represents infectious or inflammatory process. 2. Ostomy site in the left lower quadrant with postsurgical changes involving the colon. No acute inflammatory changes. No obstruction. No small bowel wall thickening. Assessment & Plan - Diagnosis (1) Dehydration Is this a current diagnosis for this admission?: Yes Plan: Judicious volume repletion as you have planned (2) Pneumonia Qualifiers: Pneumonia type: due to unspecified organism Laterality: left Lung location: lower lobe of lung Qualified Code(s): J18.1 - Lobar pneumonia, unspecified organism Is this a current diagnosis for this admission?: Yes Plan: CT scan has some infiltrates in the right middle lobe as well as left lower lobe in the left lower lobe did appear to be some miliary pattern as well as tree in bud abnormalities. Due to her being immunocompromised this is certainly make one think of atypical pneumonias. Such as MAC. We will start a PPD in several sputum's for AFB as well as some bronchodilator therapy (3) Crohns disease Qualifiers: Digestive disease complication type: unspecified complication Is this a current diagnosis for this admission?: Yes Plan: Per GI medicine (4) Tobacco abuse Is this a current diagnosis for this admission?: Yes Plan: [id number] history continues to smoke a pack a day stop smoking (5) Tobacco abuse counseling Is this a current diagnosis for this admission?: Yes Plan: Discussed at length risk and dangers associated with continued tobacco use
--- NOTE | 2019-07-15 12:47 | EKG REPORT ---
SEVERITY:- ABNORMAL ECG - SINUS RHYTHM INCOMPLETE RIGHT BUNDLE BRANCH BLOCK : Confirmed by: Jagdish Son MD 15-Jul-2019 12:46:16
[2019-07-15] MEDS: LEVOFLOXACIN 250 MG/D5W RTU 250 MG/50 ML RTUPB IV SCH (12:48)
[2019-07-15] MEDS: LEVALBUTEROL HCL NEB 0.63 MG/3 ML AMPUL NEB PRN ×2 (12:50→19:37)
[2019-07-15] MEDS ORDERED: ONDANSETRON HCL INJ/PF 4 MG/2 ML SDV IV PRN (13:30)
--- NOTE | 2019-07-15 20:01 | XCELERA REPORT ---
[address] [address] Transthoracic Echocardiogram Report Name: ROQUE MULLER Age: 59 yrs Gender: Female : 1960 Patient Status: Inpatient Patient Location: [address] [place], [place] [address] Study Date: 07/15/2019 10:20 AM Height: 69 in Weight: 104 lb BSA: 1.6 m2 Procedure: A two-dimensional transthoracic echocardiogram with color flow and Doppler was performed. Study Quality: Good. Reason For Study: sob History: Shortness of breath. Ordering Physician: NUPUR COTE Performed By: Linda Brown Interpretation Summary The left ventricle is normal in size. There is normal left ventricular wall thickness. LV EF is > than 65% The left ventricular ejection fraction is within normal limits. Doppler measurements suggest normal left ventricular diastolic function The left ventricular wall motion is normal. There is no thrombus. There is no ventricular septal defect visualized. The right ventricle is mildly dilated. The right ventricular systolic function is normal. The right atrium is normal. The left atrial size is normal. The interatrial septum is intact with no evidence for an atrial septal defect. There is no Doppler evidence for an interatrial shunt There is no evidence of mitral valve prolapse. There is no vegetation seen on the mitral valve. There is no mitral valve stenosis. There is a trace to mild amount of mitral regurgitation There is no aortic valvular vegetation. There is no aortic valve stenosis There is no LVOT obstruction. No aortic regurgitation is present. There is no tricuspid stenosis. There is a moderate amount of tricuspid regurgitation There is moderate pulmonary hypertension by echo RSVP is equal to is 56 mm of Hg , with RA mean of 15. There is no pulmonic valvular stenosis. There is a mild amount of pulmonic regurgitation The aortic root is normal size. Dilated IVC with ? than 50% decrease with respiration. There is no pericardial effusion. MMode/2D Measurements & Calculations RVDd: 3.7 cm LVIDd: 4.4 cm FS: 39.8 % Ao root diam: 3.0 cm IVSd: 0.93 cm LVIDs: 2.6 cm EDV(Teich): 87.1 ml Ao root area: 6.9 cm2 LVPWd: 0.93 cm ESV(Teich): 25.6 ml EF(Teich): 70.6 % Doppler Measurements & Calculations MV E max gian: MV dec slope: Ao V2 max: LV V1 max P.7 cm/sec 624.4 cm/sec2 145.3 cm/sec 4.3 mmHg MV A max gian: MV dec time: 0.16 sec Ao max P.4 mmHgLV V1 max: 67.6 cm/sec 104.0 cm/sec MV E/A: 1.4 PA V2 max: PI end-d gian: TR max gian: 96.4 cm/sec 88.6 cm/sec 318.0 cm/sec PA max P.7 mmHg TR max P.6 mmHg Left Ventricle The left ventricle is normal in size. There is normal left ventricular wall thickness. LV EF is > than 65%. The left ventricular ejection fraction is within normal limits. Doppler measurements suggest normal left ventricular diastolic function. The left ventricular wall motion is normal. There is no thrombus. There is no ventricular septal defect visualized. Right Ventricle The right ventricle is mildly dilated. The right ventricular systolic function is normal. Atria The right atrium is normal. The left atrial size is normal. The interatrial septum is intact with no evidence for an atrial septal defect. There is no Doppler evidence for an interatrial shunt. Mitral Valve There is no evidence of mitral valve prolapse. There is no vegetation seen on the mitral valve. There is no mitral valve stenosis. There is a trace to mild amount of mitral regurgitation. Aortic Valve There is no aortic valvular vegetation. There is no aortic valve stenosis. There is no LVOT obstruction. No aortic regurgitation is present. Tricuspid Valve There is no tricuspid stenosis. There is a moderate amount of tricuspid regurgitation. There is moderate pulmonary hypertension by echo. RSVP is equal to is 56 mm of Hg , with RA mean of 15. Pulmonic Valve There is no pulmonic valvular stenosis. There is a mild amount of pulmonic regurgitation. Great Vessels The aortic root is normal size. Dilated IVC with ? than 50% decrease with respiration. Effusions There is no pericardial effusion. : NUPUR COTE Lakshmi
--- NOTE | 2019-07-15 20:14 | PDOC CONSULTATION ---
Consultation Consult Date: 07/15/19 Provider Consulted: JANNETTE RIVERS History of Present Illness Admission Date/PCP: 07/14/19 14:02 NUPUR COTE MD History of Present Illness: ROQUE MULLER is a 59 year old lady with history of Crohn's disease associated with rectovaginal fistula, and chronic kidney disease who presented with abdominal pain, nausea and shortness of breath. Upon conversation with the patient she is more concerned about her shortness of breath which has gotten worse yesterday morning more than her abdominal pain. She said she has been coughing for the last 4 days described as nonproductive. Yesterday she started having chills and she knows she needed to go to the emergency room. She admits having poor oral intake for the last 4 days. She said she still tried to drink water but then yesterday she is unable to keep the water she started throwing it up. With her history of Crohn's disease she also mentioned that she has abdominal pain and has been dry heaving yesterday. Initial evaluation in the emergency room showed a CT scan of the abdomen and pelvis without any acute GI issue but with questionable pneumonia. Patient was then given IV Rocephin and Zithromax. Currently she is on IV cefepime and IV Levaquin. Patient also presented yesterday with elevated creatinine of 3.08. Her baseline creatinine has been 1.7-1.8. Her urinalysis showed 100 of protein with small blood and large leukocyte esterase. So far her urine culture is negative and blood culture is negative as well. She also came in with hyponatremia with initial sodium level of 124.7 and currently 127.9. Her repeat kidney function today showed a BUN of 23 and creatinine of 1.71. Today she admits that she is feeling much better compared to when she presented yesterday. Past Medical History Renal/ Medical History: Reports: Chronic Kidney Disease Stage III GI Medical History: Reports: Crohn's Disease, Gastroesophageal Reflux Disease Psychiatric Medical History: Reports: Depression, Tobacco Dependency Infectious Medical History: Denies: Methicillin-resist Staph Aureus, Vancomycin-resistant Enterococci Past Surgical History Past Surgical History: Reports: Appendectomy, Cholecystectomy, Hysterectomy, Ileostomy, Other - colostomy in 2004 then colon resection and ileostomy in 2013 at [facility] History Information Source: Patient, [facility] Records Smoking Status: Current Every Day Smoker Cigarettes Packs Per Day: 1 Number of Years Smokin Frequency of Alcohol Use: None Hx Recreational Drug Use: No Drugs: None Hx Prescription Drug Abuse: No - Advance Directive Resuscitation Status: Full Code Family History Family History: Reviewed & Not Pertinent Parental Family History Reviewed: Yes Children Family History Reviewed: Yes Sibling(s) Family History Reviewed.: Yes Medication/Allergy Home Medications: Loperamide HCl [Loperamide] 4 mg PO DAILY 01/19/18 Mercaptopurine 75 mg PO DAILY 01/19/18 Multivit-Min/Iron/Folic/Lutein [Centrum Silver Women Tablet] 1 tab PO DAILY 01/19/18 Mirtazapine [Remeron 15 mg Tablet] 15 mg PO QHS 07/14/19 Sertraline HCl [Zoloft 50 mg Tablet] 50 mg PO DAILY 07/14/19 Allergies/Adverse Reactions: No Known Drug Allergies Allergy (Verified 07/14/19 09:37) Review of Systems All systems: reviewed and no additional remarkable complaints except as stated Review of Systems: Constitutional: ABSENT: Fatigue, fever(s), headache(s), weight gain, weight loss; admits chills Eyes: ABSENT: visual disturbances Ears: ABSENT: hearing changes Cardiovascular: ABSENT: chest pain, dyspnea on exertion, edema, orthropnea, palpitations Respiratory: ABSENT: Hemoptysis; admits cough and shortness of breath. Gastrointestinal: ABSENT: Constipation, diarrhea, hematemesis, hematochezia; admits abdominal pain, nausea, vomiting Genitourinary: ABSENT: dysuria, hematuria Musculoskeletal: ABSENT: joint swelling Integumentary: ABSENT: rash, wounds Neurological: ABSENT: abnormal gait, abnormal speech, confusion, dizziness, focal weakness, numbness, syncope Psychiatric: ABSENT: anxiety, depression Endocrine: ABSENT: cold intolerance, heat intolerance, polydipsia, polyuria Hematologic/Lymphatic: ABSENT: easy bleeding, easy bruising, lymphadenopathy Physical Exam Vital Signs: Temp Pulse Resp BP Pulse Ox 98.7 F 68 14 142/74 H 96 07/15/19 15:02 07/15/19 15:02 07/15/19 15:02 07/15/19 15:02 07/15/19 15:02 Intake & Output 07/14/19 07/15/19 07/16/19 06:59 06:59 06:59 Intake Total 2932 1718 Balance 2932 1718 Weight 47.4 kg Exam: General appearance: No acute distress, cooperative, well-developed, well- nourished Head exam: PRESENT: atraumatic, normocephalic Eye exam: PRESENT: Conjunctiva [place], EOMI, PERRLA. ABSENT: conjunctival injection, scleral icterus Mouth exam: PRESENT: moist, neck supple, tongue midline Neck exam: PRESENT: full ROM. ABSENT: carotid bruit, JVD, lymphadenopathy, thyromegaly Respiratory exam: PRESENT: clear to auscultation bilaterally. ABSENT: rales, rhonchi, stridor, wheezes Cardiovascular exam: PRESENT: RRR, +S1, +S2. ABSENT: systolic murmur Pulses: PRESENT: normal radial pulses, normal dorsalis pedis pulses GI/Abdominal exam: PRESENT: normal bowel sounds, soft. Ileostomy in the left lower quadrant ABSENT: guarding, mass, tenderness Rectal exam: Deferred Extremities exam: PRESENT: full ROM. ABSENT: calf tenderness, pedal edema Musculoskeletal: PRESENT: full ROM. ABSENT: deformity Neurological exam: PRESENT: alert, Awake, Oriented to person, Oriented to place, Oriented to time, reflexes normal, CN II-XII grossly intact. ABSENT: motor sensory deficit Psychiatric exam: PRESENT: appropriate affect, normal mood. ABSENT: homicidal ideation, suicidal ideation Skin exam: PRESENT: intact, dry, warm. ABSENT: rash Results Laboratory Results: 07/15/19 04:14 07/15/19 04:14 07/15/19 07/15/19 07/15/19 02:20 04:14 04:14 WBC 7.0 RBC 2.62 L Hgb 9.5 L Hct 26.7 L MCV 102 H MCH 36.2 H MCHC 35.6 RDW 15.7 H Plt Count 467 H Seg Neutrophils % 76.0 Sodium 127.9 L Potassium 3.6 Chloride 92 L Carbon Dioxide 25 Anion Gap 11 BUN 23 H Creatinine 1.71 H Est GFR ( Amer) 37 L Glucose 80 Calcium 8.6 Magnesium 1.6 Total Bilirubin 0.6 AST 36 Alkaline Phosphatase 63 Total Protein 6.9 Albumin 3.8 Lipase 254.9 Stool for White Cells NO WBCs SEEN 07/14/19 12:17 Clean Catch Midstream Urine Culture - Final Urogenital Michelle Impressions: Chest CT 07/14/19 00:00 IMPRESSION: 1. Focal airspace disease in the right medial base either atelectasis or pneumonia. 2. Nodular infiltrate in the left base most likely infectious or inflammatory. There is mild hyperexpansion. Chest X-Ray 07/14/19 10:06 IMPRESSION: Hyperexpansion. No other significant findings. Abdomen/Pelvis CT 07/14/19 10:43 IMPRESSION: 1. Minimal right basilar atelectasis. Nodular infiltrate in the left base either represents infectious or inflammatory process. 2. Ostomy site in the left lower quadrant with postsurgical changes involving the colon. No acute inflammatory changes. No obstruction. No small bowel wall thickening. Assessment & Plan - Diagnosis (1) ALEX (acute kidney injury) Is this a current diagnosis for this admission?: Yes Plan: Most likely secondary to prerenal azotemia due to severe dehydration. Currently the patient's kidney function is back to baseline. (2) Dehydration Is this a current diagnosis for this admission?: Yes Plan: Patient was given IV fluids since admission and is currently seems to be euvolemic now. (3) Hyponatremia Is this a current diagnosis for this admission?: Yes Plan: Improving with IV fluid hydration with saline. Continue the same. (4) Pneumonia Qualifiers: Pneumonia type: due to unspecified organism Laterality: left Lung location: lower lobe of lung Qualified Code(s): J18.1 - Lobar pneumonia, unspecified organism Is this a current diagnosis for this admission?: Yes (5) Abdominal pain Qualifiers: Abdominal location: generalized Qualified Code(s): R10.84 - Generalized abdominal pain Is this a current diagnosis for this admission?: Yes Plan: On IV cefepime and Levaquin per Dr. Cote. (6) CKD (chronic kidney disease) stage 3, GFR 30-59 ml/min Is this a current diagnosis for this admission?: Yes (7) Anemia Qualifiers: Anemia type: iron deficiency Is this a current diagnosis for this admission?: Yes (8) Crohns disease Qualifiers: Digestive disease complication type: unspecified complication Is this a current diagnosis for this admission?: Yes (9) Rectovaginal fistula Is this a current diagnosis for this admission?: Yes - Notes Notes: Thank you very much for this consult. No further recommendation from nephrology standpoint. - Time Time Spent: 50 to 70 Minutes
[2019-07-16 05:47] LABS: ABSOLUTE BASOPHILS # (AUTO) 0.1 10^3/uL (0.0-0.2); ABSOLUTE LYMPHOCYTES (AUTO) 0.7 10^3/uL (0.5-4.7); ABSOLUTE MONOCYTES (AUTO) 0.7 10^3/uL (0.1-1.4); ABSOLUTE NEUT (AUTO) 8.3 10^3/uL (1.7-8.2); BASOPHILS % (AUTO) 1.5 % (0-2); EOSINOPHILS % (AUTO) 0.3 % (0-6); HEMOGLOBIN 8.9 g/dL (12.0-15.5); LYMPHOCYTES % (AUTO) 7.2 % (13-45); MEAN CORPUSCULAR HEMOGLOBIN 36.9 pg (27.0-33.4); MEAN CORPUSCULAR VOLUME 103 fl (80-97); MONOCYTES % (AUTO) 7.4 % (3-13); PLATELET COUNT 457 10^3/uL (150-450); RED BLOOD COUNT 2.42 10^6/uL (3.72-5.28); RED CELL DISTRIBUTION WIDTH 15.5 % (11.5-14.0); SEGMENTED NEUTROPHILS % (AUTO) 83.6 % (42-78); TOTAL CELLS COUNTED % (AUTO) 100 %
[2019-07-16 05:48] LABS: MEAN CORPUSCULAR HGB CONC 35.8 g/dL (32.0-36.0)
[2019-07-16] MEDS: ACETYLCYSTEINE 20% SOLN 800 MG/4 ML VIAL.NEB NEB SCH ×2 (07:57→20:00)
[2019-07-16] MEDS: LEVALBUTEROL HCL NEB 0.63 MG/3 ML AMPUL NEB PRN ×2 (07:57→20:00)
[2019-07-16] MEDS ORDERED: NORMAL SALINE 1000 ML 1,000 ML IV PRN (08:21)
--- NOTE | 2019-07-16 09:14 | PDOC PROGRESS REPORT ---
Subjective Progress Note for:: 07/16/19 Subjective:: Patient is currently doing well Patient's denied any chest pain to than any shortness of the breath feeling much better Seen by Dr. Bates's put a PPD Patient's p.o. intake is good able to keep it down no nausea no vomiting no abdominal pain Echocardiogram is all stable Reason For Visit: RENAL FAILURE, N/V/D, PNEUMONIA Physical Exam Vital Signs: Temp Pulse Resp BP Pulse Ox 98.3 F 69 20 151/62 H 94 07/16/19 08:00 07/16/19 08:00 07/16/19 08:00 07/16/19 08:00 07/16/19 08:00 Intake & Output 07/15/19 07/16/19 07/17/19 06:59 06:59 06:59 Intake Total 2932 3768 Output Total 1400 Balance 2932 2368 Weight 47.4 kg 52.8 kg General appearance: PRESENT: no acute distress, well-developed, well-nourished Head exam: PRESENT: atraumatic, normocephalic Eye exam: PRESENT: conjunctiva pink, EOMI, PERRLA. ABSENT: scleral icterus Ear exam: PRESENT: normal external ear exam Mouth exam: PRESENT: moist, tongue midline Neck exam: PRESENT: full ROM. ABSENT: carotid bruit, JVD, lymphadenopathy, thyromegaly Respiratory exam: PRESENT: clear to auscultation quita Cardiovascular exam: PRESENT: RRR. ABSENT: diastolic murmur, rubs, systolic murmur Pulses: PRESENT: normal dorsalis pedis pul, +2 pedal pulses bilateral Vascular exam: PRESENT: normal capillary refill GI/Abdominal exam: PRESENT: normal bowel sounds, soft. ABSENT: distended, guarding, mass, organolmegaly, rebound, tenderness Additonal comments: Ileostomy bag is present and working Rectal exam: PRESENT: deferred Neurological exam: PRESENT: alert, awake, oriented to person, oriented to place, oriented to time, oriented to situation, CN II-XII grossly intact. ABSENT: motor sensory deficit Psychiatric exam: PRESENT: appropriate affect, normal mood. ABSENT: homicidal ideation, suicidal ideation Skin exam: PRESENT: dry, intact, warm. ABSENT: cyanosis, rash Results Laboratory Results: 07/16/19 05:02 07/15/19 04:14 07/16/19 05:02 WBC 10.0 RBC 2.42 L Hgb 8.9 L Hct 25.0 L MCV 103 H MCH 36.9 H MCHC 35.8 RDW 15.5 H Plt Count 457 H Seg Neutrophils % 83.6 H 07/14/19 12:17 Clean Catch Midstream Urine Culture - Final Urogenital Michelle Impressions: Chest CT 07/14/19 00:00 IMPRESSION: 1. Focal airspace disease in the right medial base either atelectasis or pneumonia. 2. Nodular infiltrate in the left base most likely infectious or inflammatory. There is mild hyperexpansion. Abdomen/Pelvis CT 07/14/19 10:43 IMPRESSION: 1. Minimal right basilar atelectasis. Nodular infiltrate in the left base either represents infectious or inflammatory process. 2. Ostomy site in the left lower quadrant with postsurgical changes involving the colon. No acute inflammatory changes. No obstruction. No small bowel wall thickening. Assessment & Plan - Diagnosis (1) Dehydration Is this a current diagnosis for this admission?: Yes Plan: Currently all resolving (2) Hyponatremia Is this a current diagnosis for this admission?: Yes Plan: Currently all improving (3) Pneumonia Qualifiers: Pneumonia type: due to unspecified organism Laterality: left Lung location: lower lobe of lung Qualified Code(s): J18.1 - Lobar pneumonia, unspecified organism Is this a current diagnosis for this admission?: Yes Plan: Continues to IV antibiotic (4) UTI (urinary tract infection) Qualifiers: Urinary tract infection type: acute cystitis Hematuria presence: with hematuria Qualified Code(s): N30.01 - Acute cystitis with hematuria Is this a current diagnosis for this admission?: Yes Plan: Patient have a recurrent urinary tract infections we will send the urine for the culture (5) ALEX (acute kidney injury) Is this a current diagnosis for this admission?: Yes Plan: Currently improving (6) Abdominal pain Qualifiers: Abdominal location: generalized Qualified Code(s): R10.84 - Generalized abdominal pain Is this a current diagnosis for this admission?: Yes Plan: Continues to Protonix (7) Anemia Qualifiers: Anemia type: iron deficiency Is this a current diagnosis for this admission?: Yes Plan: Due to the chronic disease (8) Crohns disease Qualifiers: Digestive disease complication type: unspecified complication Is this a current diagnosis for this admission?: Yes Plan: Currently follow with the GI and outpatient (9) Rectovaginal fistula Is this a current diagnosis for this admission?: Yes (10) Vomiting Qualifiers: Is this a current diagnosis for this admission?: Yes - Time Time Spent with patient: 15-24 minutes Medications reviewed and adjusted accordingly: Yes Anticipated discharge: Home Within: Other - Plan Summary Plan Summary: Discussed with the patient and the nursing staff to ambulate today try to wean off from the oxygen's cut down the IV fluid
--- NOTE | 2019-07-16 09:24 | RADIOLOGY REPORT (SQ) ---
EXAM DESCRIPTION: CHEST 2 VIEWS COMPLETED DATE/TIME: 07/16/2019 9:15 am REASON FOR STUDY: pnemonia COMPARISON: 07/14/2019 EXAM PARAMETERS: NUMBER OF VIEWS: two views TECHNIQUE: Digital Frontal and Lateral radiographic views of the chest acquired. RADIATION DOSE: NA LIMITATIONS: none FINDINGS: LUNGS AND PLEURA: There is new left basilar infiltrate consistent with pneumonia. Lung fi elds remain hyperexpanded. MEDIASTINUM AND HILAR STRUCTURES: No masses or contour abnormalities. HEART AND VASCULAR STRUCTURES: Heart normal size. No evidence for failure. BONES: No acute findings. HARDWARE: None in the chest. OTHER: No other significant finding. IMPRESSION: Left lower lobe infiltrate consistent with pneumonia. TECHNICAL DOCUMENTATION: JOB ID: [id number] [employer]- All Rights Reserved Reading location - IP/workstation name: [email or web address]
[2019-07-16] MEDS: CEFEPIME 1 GM/D5W RTU 1 GM/50 ML RTUPB IV SCH ×2 (09:41→22:40)
[2019-07-16] MEDS: ENOXAPARIN SODIUM INJ 30 MG/0.3 ML DISP.SYRIN SUBCUT SCH (09:42)
[2019-07-16] MEDS: PANTOPRAZOLE SODIUM 40 MG VIAL IV SCH ×2 (09:42→22:39)
--- NOTE | 2019-07-16 10:05 | PDOC PROGRESS REPORT ---
Subjective Progress Note for:: 07/16/19 Subjective:: Patient without complaints states she feels somewhat better Reason For Visit: RENAL FAILURE, N/V/D, PNEUMONIA Physical Exam Vital Signs: Temp Pulse Resp BP Pulse Ox 98.3 F 69 20 151/62 H 94 07/16/19 08:00 07/16/19 08:00 07/16/19 08:00 07/16/19 08:00 07/16/19 08:00 Intake & Output 07/15/19 07/16/19 07/17/19 06:59 06:59 06:59 Intake Total 2932 3768 Output Total 1400 Balance 2932 2368 Weight 47.4 kg 52.8 kg General appearance: PRESENT: no acute distress, cooperative, thin, well- developed Head exam: PRESENT: atraumatic, normocephalic Eye exam: PRESENT: conjunctiva pale, EOMI. ABSENT: nystagmus, periorbital swelling Mouth exam: PRESENT: moist, neck supple, tongue midline Neck exam: ABSENT: carotid bruit, full ROM, JVD, lymphadenopathy, meningismus, tenderness, thyromegaly, tracheal deviation, tracheostomy, other Respiratory exam: PRESENT: prolonged expiratory phas, rhonchi, symmetrical, unlabored. ABSENT: retraction, stridor, tachypnea Cardiovascular exam: PRESENT: RRR, +S1, +S2. ABSENT: tachycardia Pulses: PRESENT: normal radial pulses GI/Abdominal exam: PRESENT: normal bowel sounds, soft. ABSENT: distended, guarding Extremities exam: ABSENT: calf tenderness, clubbing, joint swelling, pedal edema, tenderness Musculoskeletal exam: ABSENT: deformity, dislocation Neurological exam: PRESENT: alert, awake Psychiatric exam: PRESENT: appropriate affect Skin exam: PRESENT: dry, warm Results Laboratory Results: 07/16/19 05:02 07/15/19 04:14 07/16/19 05:02 WBC 10.0 RBC 2.42 L Hgb 8.9 L Hct 25.0 L MCV 103 H MCH 36.9 H MCHC 35.8 RDW 15.5 H Plt Count 457 H Seg Neutrophils % 83.6 H 07/14/19 12:17 Clean Catch Midstream Urine Culture - Final Urogenital Michelle Impressions: Chest CT 07/14/19 00:00 IMPRESSION: 1. Focal airspace disease in the right medial base either atelectasis or pneumonia. 2. Nodular infiltrate in the left base most likely infectious or inflammatory. There is mild hyperexpansion. Abdomen/Pelvis CT 07/14/19 10:43 IMPRESSION: 1. Minimal right basilar atelectasis. Nodular infiltrate in the left base either represents infectious or inflammatory process. 2. Ostomy site in the left lower quadrant with postsurgical changes involving the colon. No acute inflammatory changes. No obstruction. No small bowel wall thickening. Assessment & Plan - Diagnosis (1) Dehydration Is this a current diagnosis for this admission?: Yes Plan: Creatinine BUN decreased volume expansion has resulted in decrease in hemoglobin and hematocrit (2) Pneumonia Qualifiers: Pneumonia type: due to unspecified organism Laterality: left Lung location: lower lobe of lung Qualified Code(s): J18.1 - Lobar pneumonia, unspecified organism Is this a current diagnosis for this admission?: Yes Plan: No positive cultures thus far (3) Crohns disease Qualifiers: Digestive disease complication type: unspecified complication Is this a current diagnosis for this admission?: Yes Plan: Per GI medicine (4) Tobacco abuse Is this a current diagnosis for this admission?: Yes Plan: [id number] history continues to smoke a pack a day stop smoking (5) Tobacco abuse counseling Is this a current diagnosis for this admission?: Yes Plan: Discussed at length risk and dangers associated with continued tobacco use
[2019-07-16 10:11] LABS: ANION GAP 14 (5-19); BLOOD UREA NITROGEN 15 mg/dL (7-20); CALCIUM 8.9 mg/dL (8.4-10.2); CARBON DIOXIDE 22 mmol/L (22-30); CHLORIDE 98 mmol/L (98-107); GLUCOSE 132 mg/dL (75-110); POTASSIUM 3.8 mmol/L (3.6-5.0)
[2019-07-16] MEDS: LEVOFLOXACIN 250 MG/D5W RTU 250 MG/50 ML RTUPB IV SCH (12:57)
[2019-07-17] MEDS: ACETYLCYSTEINE 20% SOLN 800 MG/4 ML VIAL.NEB NEB SCH ×2 (08:18→21:23)
[2019-07-17] MEDS: LEVALBUTEROL HCL NEB 0.63 MG/3 ML AMPUL NEB PRN ×2 (08:18→21:23)
[2019-07-17] MEDS: ENOXAPARIN SODIUM INJ 30 MG/0.3 ML DISP.SYRIN SUBCUT SCH (09:51)
[2019-07-17] MEDS: PANTOPRAZOLE SODIUM 40 MG VIAL IV SCH (09:51)
[2019-07-17] MEDS: CEFEPIME 1 GM/D5W RTU 1 GM/50 ML RTUPB IV SCH ×2 (09:51→21:25)
--- NOTE | 2019-07-17 10:45 | PDOC PROGRESS REPORT ---
Subjective Progress Note for:: 07/17/19 Subjective:: Patient is feeling much better Patient's denied any abdominal pain no nausea no vomiting Patient still have a issue with the oxygen's but other than that feeling much better required a couple of better oxygen's Reason For Visit: RENAL FAILURE, N/V/D, PNEUMONIA Physical Exam Vital Signs: Temp Pulse Resp BP Pulse Ox 97.9 F 90 15 150/84 H 96 07/17/19 08:15 07/17/19 08:18 07/17/19 08:18 07/17/19 08:15 07/17/19 08:18 Intake & Output 07/16/19 07/17/19 07/18/19 06:59 06:59 06:59 Intake Total 3768 1386 Output Total 1400 300 Balance 2368 1086 Weight 52.8 kg 49.9 kg General appearance: PRESENT: no acute distress, well-developed, well-nourished Head exam: PRESENT: atraumatic, normocephalic Eye exam: PRESENT: conjunctiva pink, EOMI, PERRLA. ABSENT: scleral icterus Ear exam: PRESENT: normal external ear exam Mouth exam: PRESENT: moist, tongue midline Neck exam: PRESENT: full ROM. ABSENT: carotid bruit, JVD, lymphadenopathy, thyromegaly Respiratory exam: PRESENT: clear to auscultation quita Cardiovascular exam: PRESENT: RRR. ABSENT: diastolic murmur, rubs, systolic murmur Pulses: PRESENT: normal dorsalis pedis pul, +2 pedal pulses bilateral Vascular exam: PRESENT: normal capillary refill GI/Abdominal exam: PRESENT: normal bowel sounds, soft. ABSENT: distended, guarding, mass, organolmegaly, rebound, tenderness Rectal exam: PRESENT: deferred Musculoskeletal exam: PRESENT: ambulatory Neurological exam: PRESENT: alert, awake, oriented to person, oriented to place, oriented to time, oriented to situation, CN II-XII grossly intact. ABSENT: motor sensory deficit Psychiatric exam: PRESENT: appropriate affect, normal mood. ABSENT: homicidal i deation, suicidal ideation Skin exam: PRESENT: dry, intact, warm. ABSENT: cyanosis, rash Results Laboratory Results: 07/16/19 05:02 07/16/19 08:52 07/15/19 02:20 Stool - Stool - Final Impressions: Chest CT 07/14/19 00:00 IMPRESSION: 1. Focal airspace disease in the right medial base either atelectasis or pneumonia. 2. Nodular infiltrate in the left base most likely infectious or inflammatory. There is mild hyperexpansion. Abdomen/Pelvis CT 07/14/19 10:43 IMPRESSION: 1. Minimal right basilar atelectasis. Nodular infiltrate in the left base either represents infectious or inflammatory process. 2. Ostomy site in the left lower quadrant with postsurgical changes involving the colon. No acute inflammatory changes. No obstruction. No small bowel wall thickening. Chest X-Ray 07/16/19 00:00 IMPRESSION: Left lower lobe infiltrate consistent with pneumonia. Assessment & Plan - Diagnosis (1) Dehydration Is this a current diagnosis for this admission?: Yes Plan: Currently all resolved (2) Hyponatremia Is this a current diagnosis for this admission?: Yes Plan: Currently all resolved (3) Pneumonia Qualifiers: Pneumonia type: due to unspecified organism Laterality: left Lung location: lower lobe of lung Qualified Code(s): J18.1 - Lobar pneumonia, unspecified organism Is this a current diagnosis for this admission?: Yes Plan: Continues to current antibiotic (4) UTI (urinary tract infection) Qualifiers: Urinary tract infection type: acute cystitis Hematuria presence: with hematuria Qualified Code(s): N30.01 - Acute cystitis with hematuria Is this a current diagnosis for this admission?: Yes Plan: Patient have a recurrent urinary tract infections we will send the urine for the culture (5) ALEX (acute kidney injury) Is this a current diagnosis for this admission?: Yes Plan: Currently all resolved (6) Abdominal pain Qualifiers: Abdominal location: generalized Qualified Code(s): R10.84 - Generalized abdominal pain Is this a current diagnosis for this admission?: Yes Plan: Currently all resolved (7) Anemia Qualifiers: Anemia type: iron deficiency Is this a current diagnosis for this admission?: Yes (8) Crohns disease Qualifiers: Digestive disease complication type: unspecified complication Is this a current diagnosis for this admission?: Yes (9) Rectovaginal fistula Is this a current diagnosis for this admission?: Yes (10) Vomiting Qualifiers: Is this a current diagnosis for this admission?: Yes - Time Time Spent with patient: 15-24 minutes Medications reviewed and adjusted accordingly: Yes Anticipated discharge: Home Within: within 24 hours - Plan Summary Plan Summary: Continues to try to wean off from the oxygen's
[2019-07-17] MEDS: MIRTAZAPINE 15 MG TABLET PO SCH (21:25)
[2019-07-18] MEDS: ACETYLCYSTEINE 20% SOLN 800 MG/4 ML VIAL.NEB NEB SCH ×2 (08:11→19:55)
[2019-07-18] MEDS: LEVALBUTEROL HCL NEB 0.63 MG/3 ML AMPUL NEB PRN ×2 (08:12→19:55)
--- NOTE | 2019-07-18 10:50 | PDOC PROGRESS REPORT ---
Subjective Progress Note for:: 07/25/19 Subjective:: Patient is feeling much better Patient still does not require any oxygen's Patient's denied any abdominal pain no nausea no vomiting No chest pain No short of breath Reason For Visit: RENAL FAILURE, N/V/D, PNEUMONIA Physical Exam Vital Signs: Temp Pulse Resp BP Pulse Ox 98.5 F 69 14 156/85 H 92 07/18/19 07:15 07/18/19 08:11 07/18/19 08:11 07/18/19 07:15 07/18/19 08:48 Intake & Output 07/17/19 07/18/19 07/19/19 06:59 06:59 06:59 Intake Total 1386 2940 Output Total 300 600 Balance 1086 2340 Weight 49.9 kg 51.7 kg General appearance: PRESENT: no acute distress, well-developed, well-nourished Head exam: PRESENT: atraumatic, normocephalic Eye exam: PRESENT: conjunctiva pink, EOMI, PERRLA. ABSENT: scleral icterus Ear exam: PRESENT: normal external ear exam Mouth exam: PRESENT: moist, tongue midline Neck exam: PRESENT: full ROM. ABSENT: carotid bruit, JVD, lymphadenopathy, thyromegaly Respiratory exam: PRESENT: clear to auscultation quita Cardiovascular exam: PRESENT: RRR. ABSENT: diastolic murmur, rubs, systolic murmur Pulses: PRESENT: normal dorsalis pedis pul, +2 pedal pulses bilateral Vascular exam: PRESENT: normal capillary refill GI/Abdominal exam: PRESENT: normal bowel sounds, soft. ABSENT: distended, guarding, mass, organolmegaly, rebound, tenderness Rectal exam: PRESENT: deferred Musculoskeletal exam: PRESENT: ambulatory Neurological exam: PRESENT: alert, awake, oriented to person, oriented to place, oriented to time, oriented to situation, CN II-XII grossly intact. ABSENT: motor sensory deficit Psychiatric exam: PRESENT: appropriate affect, normal mood. ABSENT: homicidal ideation, suicidal ideation Skin exam: PRESENT: dry, intact, warm. ABSENT: cyanosis, rash Results Laboratory Results: 07/16/19 05:02 07/16/19 08:52 07/15/19 02:20 Stool - Stool - Final 07/15/19 02:20 Stool - Stool Stool Culture - Final C.albicans/C.dubliniensis Impressions: Chest CT 07/14/19 00:00 IMPRESSION: 1. Focal airspace disease in the right medial base either atelectasis or pneumonia. 2. Nodular infiltrate in the left base most likely infectious or inflammatory. There is mild hyperexpansion. Abdomen/Pelvis CT 07/14/19 10:43 IMPRESSION: 1. Minimal right basilar atelectasis. Nodular infiltrate in the left base either represents infectious or inflammatory process. 2. Ostomy site in the left lower quadrant with postsurgical changes involving the colon. No acute inflammatory changes. No obstruction. No small bowel wall thickening. Chest X-Ray 07/16/19 00:00 IMPRESSION: Left lower lobe infiltrate consistent with pneumonia. Assessment & Plan - Diagnosis (1) Dehydration Is this a current diagnosis for this admission?: Yes Plan: Currently all resolved (2) Hyponatremia Is this a current diagnosis for this admission?: Yes Plan: Currently all resolved (3) Pneumonia Qualifiers: Pneumonia type: due to unspecified organism Laterality: left Lung location: lower lobe of lung Qualified Code(s): J18.1 - Lobar pneumonia, unspecified organism Is this a current diagnosis for this admission?: Yes Plan: Continues to current antibiotic (4) UTI (urinary tract infection) Qualifiers: Urinary tract infection type: acute cystitis Hematuria presence: with hematuria Qualified Code(s): N30.01 - Acute cystitis with hematuria Is this a current diagnosis for this admission?: Yes Plan: Patient have a recurrent urinary tract infections we will send the urine for the culture (5) ALEX (acute kidney injury) Is this a current diagnosis for this admission?: Yes Plan: Currently all resolved (6) Abdominal pain Qualifiers: Abdominal location: generalized Qualified Code(s): R10.84 - Generalized abdominal pain Is this a current diagnosis for this admission?: Yes Plan: Currently all resolved (7) Anemia Qualifiers: Anemia type: iron deficiency Is this a current diagnosis for this admission?: Yes Plan: Due to the chronic disease (8) Crohns disease Qualifiers: Digestive disease complication type: unspecified complication Is this a current diagnosis for this admission?: Yes (9) Rectovaginal fistula Is this a current diagnosis for this admission?: Yes (10) Vomiting Qualifiers: Is this a current diagnosis for this admission?: Yes - Time Time Spent with patient: 25-34 minutes Medications reviewed and adjusted accordingly: Yes Anticipated discharge: Home Within: within 24 hours - Plan Summary Plan Summary: Repeat the chest x-ray Patient does not require any oxygen anymore We will discontinues to IV antibiotic
[2019-07-18] MEDS: LOPERAMIDE HCL 2 MG CAPSULE PO SCH (10:54)
[2019-07-18] MEDS: LEVOFLOXACIN 500 MG TABLET PO SCH (10:54)
[2019-07-18] MEDS: SERTRALINE HCL 50 MG TABLET PO SCH (10:55)
[2019-07-18] MEDS: MULTIVITAMIN TABLET PO SCH (10:55)
[2019-07-18] MEDS: ENOXAPARIN SODIUM INJ 30 MG/0.3 ML DISP.SYRIN SUBCUT SCH (10:55)
--- NOTE | 2019-07-18 11:29 | RADIOLOGY REPORT (SQ) ---
EXAM DESCRIPTION: CHEST 2 VIEWS COMPLETED DATE/TIME: 07/18/2019 11:19 am REASON FOR STUDY: Pneumonia COMPARISON: 07/16/2019. NUMBER OF VIEWS: Two view. TECHNIQUE: Frontal and lateral radiographic views of the chest acquired. LIMITATIONS: None. FINDINGS: LUNGS AND PLEURA: Faint airspace disease in the left lung base, unchanged. No pleural effu bryce. Attenuated blood vessels and flattened vicente-diaphragms. MEDIASTINUM AND HILAR STRUCTURES: No masses. No contour abnormalities. HEART AND VASCULAR STRUCTURES: Heart normal in size and contour. No evidence for failure. BONES: No acute findings. HARDWARE: None in the chest. OTHER: No other significant finding. IMPRESSION: COPD. FAINT LEFT LOWER LOBE INFILTRATE UNCHANGED. TECHNICAL DOCUMENTATION: JOB ID: [id number] [employer]- All Rights Reserved Reading location - IP/workstation name: [email or web address]
[2019-07-18] MEDS: CEFEPIME 1 GM/D5W RTU 1 GM/50 ML RTUPB IV SCH (14:09)
[2019-07-18] MEDS: MIRTAZAPINE 15 MG TABLET PO SCH (21:22)
[2019-07-19 04:57] LABS: ANION GAP 7 (5-19); BLOOD UREA NITROGEN 23 mg/dL (7-20); CALCIUM 9.3 mg/dL (8.4-10.2); CARBON DIOXIDE 25 mmol/L (22-30); CHLORIDE 103 mmol/L (98-107); GLUCOSE 91 mg/dL (75-110); POTASSIUM 4.3 mmol/L (3.6-5.0)
[2019-07-19 08:14] VITALS: BP 143/89
[2019-07-19] MEDS: LEVALBUTEROL HCL NEB 0.63 MG/3 ML AMPUL NEB PRN (08:37)
[2019-07-19] MEDS: ACETYLCYSTEINE 20% SOLN 800 MG/4 ML VIAL.NEB NEB SCH (08:37)
[2019-07-19] MEDS: LOPERAMIDE HCL 2 MG CAPSULE PO SCH (09:58)
[2019-07-19] MEDS: MULTIVITAMIN TABLET PO SCH (09:58)
[2019-07-19] MEDS: LEVOFLOXACIN 500 MG TABLET PO SCH (09:58)
[2019-07-19] MEDS: SERTRALINE HCL 50 MG TABLET PO SCH (09:58)
[2019-07-19] MEDS: ENOXAPARIN SODIUM INJ 30 MG/0.3 ML DISP.SYRIN SUBCUT SCH (09:58)
--- NOTE | 2019-07-19 10:42 | PDOC DISCHARGE SUMMARY ---
General - Admit/Disc Date/PCP Admission Date/Primary Care Provider: 07/14/19 14:02 NUPUR COTE MD Discharge Date: 07/19/19 - Discharge Diagnosis (1) Dehydration Is this a current diagnosis for this admission?: Yes Summary: Currently all resolved (2) Hyponatremia Is this a current diagnosis for this admission?: Yes Summary: Currently all resolved (3) Pneumonia Is this a current diagnosis for this admission?: Yes Summary: Currently all resolving (4) UTI (urinary tract infection) Is this a current diagnosis for this admission?: Yes Summary: All stable (5) ALEX (acute kidney injury) Is this a current diagnosis for this admission?: Yes Summary: Currently back to the baseline (6) Abdominal pain Is this a current diagnosis for this admission?: Yes Summary: Clear all resolved (7) Anemia Is this a current diagnosis for this admission?: Yes (8) Crohns disease Is this a current diagnosis for this admission?: Yes Summary: Follow outpatients GI (9) Rectovaginal fistula Is this a current diagnosis for this admission?: Yes (10) Vomiting Is this a current diagnosis for this admission?: Yes Summary: Clear all resolved - Additional Information Resuscitation Status: Full Code Discharge Diet: As Tolerated, Cardiac Discharge Activity: Activity As Tolerated Prescriptions: Levofloxacin [Levaquin 500 mg Tablet] 500 mg PO DAILY #5 tablet Home Medications: Loperamide HCl [Loperamide] 4 mg PO DAILY 01/19/18 Multivit-Min/Iron/Folic/Lutein [Centrum Silver Women Tablet] 1 tab PO DAILY 01/19/18 Mirtazapine [Remeron 15 mg Tablet] 15 mg PO QHS 07/14/19 Sertraline HCl [Zoloft 50 mg Tablet] 50 mg PO DAILY 07/14/19 Levofloxacin [Levaquin 500 mg Tablet] 500 mg PO DAILY #5 tablet 07/19/19 History of Present Illness History of Present Illness: ROQUE MULLER is a 59 year old female This is a 59-year-old female with a significant history of the Crohn's disease with rectovaginal fistula and cutaneous Crohn's several GI evaluations done including the patient seen by Dr. Coombs patient seen at the [facility] and currently follow with the [facility] injection therapy for the Crohn's disease came to the emergency department with the several days not feeling well persistent vomiting and diffuse abdominal cramps and some mild cough congestions In the emergency department patient initial CT abdomen and pelvis that did not show any abdominal issues but questionable pneumonia patient received Rocephin and Zithromax patient is also found acute renal failure and chronic kidney disease with baseline creatinine is 1.[address] Blanchard for that Patient's when I saw it still feeling little nausea patient's denied any issue in the pelvic area with patient have a fistula Patient is denied any chest pain to than any shortness of the breath except dry cough pt also getting remicaid inj q 2month and last was given may 31 pt also schd for endo/colon per gi next month Hospital Course Hospital Course: This 59-year-old female with past medical problem about presented the emergency department with the not feeling well dehydration's coughing vomiting nausea patient was diagnosed with a pneumonia Patient start on IV antibiotics Patient's CT scan of the abdomen pelvis was all stable and CT chest so some consistent with a pneumonia and seen by the Dr. Bates in general surgery Patient's PPD is negative Patient's response very well with the antibiotics and patient's off the oxygen's Patient also have a COPD need a further evaluation as an outpatient with the Dr. Bates's Patients walk around in the hallway without any problems No GI issues Patient's all blood work is stable's Patients wants to go home's\ Patient is discharged with the p.o. antibiotic follow outpatient in 1 week Physical Exam Vital Signs: Temp Pulse Resp BP Pulse Ox 98.1 F 83 15 143/89 H 92 07/19/19 07:59 07/19/19 08:37 07/19/19 08:37 07/19/19 07:59 07/19/19 08:37 Intake & Output 07/18/19 07/19/19 07/20/19 06:59 06:59 06:59 Intake Total 2940 1736 Output Total 600 1000 Balance 2340 736 Weight 51.7 kg 51.9 kg General appearance: PRESENT: no acute distress, well-developed, well-nourished Head exam: PRESENT: atraumatic, normocephalic Eye exam: PRESENT: conjunctiva pink, EOMI, PERRLA. ABSENT: scleral icterus Ear exam: PRESENT: normal external ear exam Mouth exam: PRESENT: moist, tongue midline Neck exam: PRESENT: full ROM. ABSENT: carotid bruit, JVD, lymphadenopathy, thyromegaly Respiratory exam: PRESENT: clear to auscultation quita Cardiovascular exam: PRESENT: RRR. ABSENT: diastolic murmur, rubs, systolic murmur Pulses: PRESENT: normal dorsalis pedis pul, +2 pedal pulses bilateral Vascular exam: PRESENT: normal capillary refill GI/Abdominal exam: PRESENT: normal bowel sounds, soft. ABSENT: distended, guarding, mass, organolmegaly, rebound, tenderness Additonal comments: Ileostomy bag is present Rectal exam: PRESENT: deferred Neurological exam: PRESENT: alert, awake, oriented to person, oriented to place, oriented to time, oriented to situation, CN II-XII grossly intact. ABSENT: motor sensory deficit Psychiatric exam: PRESENT: appropriate affect, normal mood. ABSENT: homicidal ideation, suicidal ideation Skin exam: PRESENT: dry, intact, warm. ABSENT: cyanosis, rash Results Laboratory Results: 07/16/19 05:02 07/19/19 04:25 07/19/19 04:25 Sodium 135.4 L Potassium 4.3 Chloride 103 Carbon Dioxide 25 Anion Gap 7 BUN 23 H Creatinine 1.39 H Est GFR ( Amer) 47 L Glucose 91 Calcium 9.3 07/14/19 23:00 Sputum Gram Stain - Final 07/14/19 23:00 Sputum Sputum Culture - Final Corynebacterium Striatum Normal Michelle 07/15/19 02:20 Stool - Stool - Final 07/15/19 02:20 Stool - Stool Stool Culture - Final C.albicans/C.dubliniensis Impressions: Chest CT 07/14/19 00:00 IMPRESSION: 1. Focal airspace disease in the right medial base either atelectasis or pneumonia. 2. Nodular infiltrate in the left base most likely infectious or inflammatory. There is mild hyperexpansion. Abdomen/Pelvis CT 07/14/19 10:43 IMPRESSION: 1. Minimal right basilar atelectasis. Nodular infiltrate in the left base either represents infectious or inflammatory process. 2. Ostomy site in the left lower quadrant with postsurgical changes involving the colon. No acute inflammatory changes. No obstruction. No small bowel wall thickening. Chest X-Ray 07/18/19 00:00 IMPRESSION: COPD. FAINT LEFT LOWER LOBE INFILTRATE UNCHANGED. Qualifiers - * PATIENT BEING DISCHARGED WITH ANY OF THE FOLLOWING DIAGNOSIS: No Acute Heart Failure - Is this a Heart Failure Patient?: No Plan Time Spent: Greater than 30 Minutes - Follow in office 1 week We will get the PFTs CBC and Chem-[address] Bates and the doctor and the GI at [place]
== END 2019-07-19 10:49 | disposition home or self-care (01) | DRG 194 ==
LOC: ER 09:26 → EH 14:02 → 4N 19:42
PROVIDERS: ADMIT Family Medicine; ATTEND Family Medicine
DX: J18.9 Pneumonia, unspecified organism (principal); N17.9 Acute kidney failure, unspecified; E87.1 Hypo-osmolality and hyponatremia; K50.90 Crohn's disease, unspecified, without complications; N30.01 Acute cystitis with hematuria; N82.3 Fistula of vagina to large intestine; J44.0 Chronic obstructive pulmonary disease with (acute) lower respiratory infection; I12.9 Hypertensive chronic kidney disease with stage 1 through stage 4 chronic kidney disease, or unspecified chronic kidney disease; F17.200 Nicotine dependence, unspecified, uncomplicated; D50.9 Iron deficiency anemia, unspecified; N18.3 Chronic kidney disease, stage 3 (moderate); J44.9 Chronic obstructive pulmonary disease, unspecified; E86.0 Dehydration; K21.9 Gastro-esophageal reflux disease without esophagitis; F32.9 Major depressive disorder, single episode, unspecified; Z90.49 Acquired absence of other specified parts of digestive tract; Z93.2 Ileostomy status; Z92.25 Personal history of immunosuppression therapy; Z79.899 Other long term (current) drug therapy
CPT/HCPCS: 36415; 71045; 71046; 71250; 74176; 80048; 80053; 81001; 83605; 83690; 83735; 85025; 87015; 87040; 87045; 87070; 87077; 87086; 87116; 87205; 87206; 87493; 87804; 89055; 93005; 93010; 93306; 94640; 96361; 96374; 96375; 99285; J0456; J0692; J0696; J1650; J1956; J2765; J3490; J7030; J7614; S0119; S0164

== ENCOUNTER → 2019-08-02 | Outpatient (CLI) | payer MEDICARE, OTHER ==
--- NOTE | 2019-08-02 13:41 | RADIOLOGY REPORT (SQ) ---
EXAM DESCRIPTION: CHEST PA/LATERAL COMPLETED DATE/TIME: 08/02/2019 11:58 am REASON FOR STUDY: WHEEZING; PNEUMONIA OF LEFT LOWER LOBE DUE TO INFECTIOUS ORGANISM COMPARISON: 07/18/2019 EXAM PARAMETERS: NUMBER OF VIEWS: two views TECHNIQUE: Digital Frontal and Lateral radiographic views of the chest acquired. RADIATION DOSE: NA LIMITATIONS: none FINDINGS: LUNGS AND PLEURA: Mild residual patchy opacification in the left base. There is improveme nt. The lungs are hyperexpanded. MEDIASTINUM AND HILAR STRUCTURES: No masses or contour abnormalities. HEART AND VASCULAR STRUCTURES: Heart normal size. No evidence for failure. BONES: No acute findings. HARDWARE: None in the chest. OTHER: No other significant finding. IMPRESSION: Chronic lung changes. Mild residual changes in the left base with improvement. These f indings may be chronic. TECHNICAL DOCUMENTATION: JOB ID: [id number] [employer]- All Rights Reserved Reading location - IP/workstation name: [email or web address]
== END ==
LOC: OD 11:51
PROVIDERS: ATTEND Physician Assistant
DX: J18.1 Lobar pneumonia, unspecified organism (principal); R06.2 Wheezing
CPT/HCPCS: 71046

== ENCOUNTER 2019-10-12 15:22 | Emergency (ER) | payer MEDICARE, OTHER ==
[2019-10-12 16:00] LABS: ABSOLUTE BASOPHILS # (AUTO) 0.1 10^3/uL (0.0-0.2); ABSOLUTE LYMPHOCYTES (AUTO) 0.7 10^3/uL (0.5-4.7); ABSOLUTE MONOCYTES (AUTO) 0.3 10^3/uL (0.1-1.4); ABSOLUTE NEUT (AUTO) 7.7 10^3/uL (1.7-8.2); BASOPHILS % (AUTO) 0.8 % (0-2); EOSINOPHILS % (AUTO) 0.2 % (0-6); HEMATOCRIT 35.7 % (36.0-47.0); HEMOGLOBIN 12.6 g/dL (12.0-15.5); LYMPHOCYTES % (AUTO) 7.5 % (13-45); MEAN CORPUSCULAR HEMOGLOBIN 35.3 pg (27.0-33.4); MEAN CORPUSCULAR HGB CONC 35.3 g/dL (32.0-36.0); MEAN CORPUSCULAR VOLUME 100 fl (80-97); MONOCYTES % (AUTO) 3.9 % (3-13); PLATELET COUNT 384 10^3/uL (150-450); RED BLOOD COUNT 3.57 10^6/uL (3.72-5.28); RED CELL DISTRIBUTION WIDTH 18.8 % (11.5-14.0); SEGMENTED NEUTROPHILS % (AUTO) 87.6 % (42-78); TOTAL CELLS COUNTED % (AUTO) 100 %; WHITE BLOOD COUNT 8.8 10^3/uL (4.0-10.5)
[2019-10-12] MEDS ORDERED: NORMAL SALINE 1000 ML 1,000 ML IV ONE (16:17)
[2019-10-12] MEDS ORDERED: METOCLOPRAMIDE HCL INJ/PF 10 MG/2 ML SDV IV ONE ×2 (16:17→21:03)
[2019-10-12 16:20] LABS: ALBUMIN 4.8 g/dL (3.5-5.0); ALKALINE PHOSPHATASE 68 U/L (38-126); ANION GAP 17 (5-19); ASPARTATE AMINO TRANSFERASE 35 U/L (14-36); BILIRUBIN,DIRECT 0.2 mg/dL (0.0-0.4); BILIRUBIN,TOTAL 0.6 mg/dL (0.2-1.3); BLOOD UREA NITROGEN 38 mg/dL (7-20); CALCIUM 9.4 mg/dL (8.4-10.2); CARBON DIOXIDE 21 mmol/L (22-30); CHLORIDE 96 mmol/L (98-107); GLUCOSE 117 mg/dL (75-110); POTASSIUM 4.1 mmol/L (3.6-5.0); TOTAL PROTEIN 8.3 g/dL (6.3-8.2)
[2019-10-12 18:55] LABS: AMORPHOUS SEDIMENT,URINE TRACE /HPF; APPEARANCE,URINE CLOUDY; BILIRUBIN,URINE NEGATIVE (NEGATIVE); COLOR,URINE YELLOW; GLUCOSE, URINE NEGATIVE (NEGATIVE); KETONES,URINE TRACE mg/dL (NEGATIVE); LEUKOCYTE ESTERASE,URINE LARGE (NEGATIVE); NITRITE,URINE NEGATIVE (NEGATIVE); PROTEIN,URINE 100 mg/dL (NEGATIVE); URINE SPECIFIC GRAVITY 1.015; UROBILINOGEN,URINE NEGATIVE mg/dL (<2.0)
--- NOTE | 2019-10-12 20:42 | RADIOLOGY REPORT (SQ) ---
EXAM DESCRIPTION: CT ABDOMEN PELVIS WITHOUT IV CONTRAST COMPLETED DATE/TME: 10/12/2019 17:49 CLINICAL HISTORY: 59 years, Female, abd pain, vomiting. History of Crohn's disease. COMPARISON: CT from 07/14/2019 and 07/31/2018. TECHNIQUE: Axial images without IV or oral contrast. Sagittal coronal reconstruction. This exam was performed according to our departmental dose-optimization program, which includes automated exposure control, adjustment of the mA and/or kV according to patient size and/or use of iterative reconstruction technique.. FINDINGS: Emphysematous changes in both lower lobes. Left lung bases demonstrates an irregular shaped nodule in the left lower lobe medially. Previous CT from 07/06/2019 demonstrated more diffuse nodular infiltrates in both lower lobes especially on the left and this finding is more likely residual this previous infection. Liver without suspicious findings. There is no evidence for biliary dilatation. CT from 07/31/2019 and 07/14/2019 demonstrated biliary dilatation and this appears resolved. Gallbladder removed. Spleen, pancreas, paratracheal regions are unremarkable. Moderate atherosclerotic aorta. Moderate atherosclerotic disease in both renal arteries. Kidneys demonstrated without atrophy or hydronephrosis. Left renal cysts again seen. Distended stomach less prominent compared to previous studies. Mild small bowel dilatation also less obvious. There is a left ostomy. There is been resection of: Possible subtotal colectomy. Difficult to discriminate between small and large bowel loops. Significant the pelvis demonstrates unremarkable urinary bladder. Previous studies demonstrated greater distention of the bladder. Absent uterus. Rectum contracted. No free fluid or adenopathy. IMPRESSION: 1. Difficult evaluation of abdominal contents especially the bowel loops because of cachectic patient without fat planes. There is also no IV contrast. 2. Previous studies demonstrated gastric and small bowel dilatation and this is currently. There is an ostomy present. Suspected colectomy. 3. Atherosclerotic aorta. Atherosclerotic bilateral renal arteries. No evidence for renal atrophy. 4. Previous biliary dilatation appears radiographically resolved. 5. Emphysematous changes in both lower lung buckley. Previous reticulonodular infiltrates mostly resolved. There is residual irregular nodule on the left lower lobe medially which was not seen previously and is most likely residual infection.
--- NOTE | 2019-10-12 21:03 | ER Document Report ---
ED GI/ - General Chief Complaint: Vomiting Stated Complaint: NAUSA/VOMITING Time Seen by Provider: 10/12/19 15:39 Primary Care Provider: BYRON ACUÑA PA [Primary Care Provider] - Follow up as needed Mode of Arrival: Ambulatory Information source: Patient Notes: Patient is a 59-year-old female presenting via EMS for vomiting. She reports vomiting started on Friday. She states she cannot keep down anything given water. She also reports pain to the left lower quadrant. She reports a history of Crohn's disease. She does state that she has an ileostomy secondary to her Crohn's disease. She states the stool in her ileostomy is more liquid like than normal. TRAVEL OUTSIDE OF THE [place] IN LAST 30 DAYS: No - Related Data Allergies/Adverse Reactions: No Known Drug Allergies Allergy (Verified 07/14/19 09:37) Past Medical History - General Information source: Patient - Social History Smoking Status: Current Every Day Smoker Family History: DM, Hypertension Patient has suicidal ideation: No Patient has homicidal ideation: No - Past Medical History Cardiac Medical History: Reports: Hx Hypertension Pulmonary Medical History: Denies: Hx Tuberculosis Neurological Medical History: Denies: Hx Seizures Renal/ Medical History: Denies: Hx Peritoneal Dialysis GI Medical History: Reports: Hx Crohn's Disease, Hx Gastroesophageal Reflux Disease. Denies: Hx Hepatitis, Hx Ulcerative Colitis Musculoskeletal Medical History: Denies Hx Fibromyalgia, Denies Hx Gout Skin Medical History: Denies Hx Psoriasis Psychiatric Medical History: Reports: Hx Depression Infectious Medical History: Denies: Hx Hepatitis, Hx MRSA, Hx VRE Past Surgical History: Reports: Hx Abdominal Surgery - colostomy, Hx Appendectomy, Hx Bowel Surgery, Hx Cholecystectomy, Hx Hysterectomy, Hx Ileostomy, Hx Rectal Surgery, Other - colostomy in 2004 then colon resection and ileostomy in 2012 at [place]. Denies: Hx Pacemaker - Immunizations Hx Diphtheria, Pertussis, Tetanus Vaccination: Yes Review of Systems - Review of Systems Constitutional: No symptoms reported EENT: No symptoms reported Cardiovascular: No symptoms reported Respiratory: No symptoms reported Gastrointestinal: See HPI Genitourinary: No symptoms reported Female Genitourinary: No symptoms reported Musculoskeletal: No symptoms reported Skin: No symptoms reported Hematologic/Lymphatic: No symptoms reported Neurological/Psychological: No symptoms reported Physical Exam - Vital signs Vitals: Temp 97.9 F 10/12/19 15:32 - Notes Notes: PHYSICAL EXAMINATION: GENERAL: No acute distress. HEAD: Atraumatic, normocephalic. EYES: Pupils equal round and reactive to light, extraocular movements intact, conjunctiva are normal. ENT: Nares patent, oropharynx clear without exudates. Moist mucous membranes. NECK: Normal range of motion, supple without lymphadenopathy LUNGS: Breath sounds clear to auscultation bilaterally and equal. No wheezes rales or rhonchi. HEART: Regular rate and rhythm without murmurs ABDOMEN: Soft, nontender, nondistended abdomen. Ileostomy left lower quadrant. No guarding, no rebound. No masses appreciated. Female : No CVA tenderness. Musculoskeletal: Normal range of motion, no pitting or edema. No cyanosis. NEUROLOGICAL: Cranial nerves grossly intact. Normal speech, normal gait. Normal sensory, motor exams PSYCH: Normal mood, normal affect. SKIN: Warm, Dry, normal turgor, no rashes or lesions noted. Course - Re-evaluation Re-evalutation: Laboratory 10/12/19 10/12/19 10/12/19 15:35 15:35 18:28 WBC 8.8 RBC 3.57 L Hgb 12.6 Hct 35.7 L MCV 100 H MCH 35.3 H MCHC 35.3 RDW 18.8 H Plt Count 384 Lymph % (Auto) 7.5 L [place] % (Auto) 3.9 Eos % (Auto) 0.2 Baso % (Auto) 0.8 Absolute Neuts (auto) 7.7 Absolute Lymphs (auto) 0.7 Absolute Monos (auto) 0.3 Absolute Eos (auto) 0.0 Absolute Basos (auto) 0.1 Seg Neutrophils % 87.6 H Sodium 133.8 L Potassium 4.1 Chloride 96 L Carbon Dioxide 21 L Anion Gap 17 BUN 38 H Creatinine 2.69 H Est GFR ( Amer) 22 L Est GFR (MDRD) Non-Af 18 L Glucose 117 H Calcium 9.4 Total Bilirubin 0.6 Direct Bilirubin 0.2 Neonat Total Bilirubin Not Reportable Neonat Direct Bilirubin Not Reportable Neonat Indirect Bili Not Reportable AST 35 ALT 24 Alkaline Phosphatase 68 Total Protein 8.3 H Albumin 4.8 Lipase 314.7 H Urine Color YELLOW Urine Appearance CLOUDY Urine pH 5.0 Ur Specific [place] 1.015 Urine Protein 100 H Urine Glucose (UA) NEGATIVE Urine Ketones TRACE H Urine Blood MODERATE H Urine Nitrite NEGATIVE Urine Bilirubin NEGATIVE Urine Urobilinogen NEGATIVE Ur Leukocyte Esterase LARGE H Urine WBC (Auto) 14 Urine RBC (Auto) 7 Urine Bacteria (Auto) TRACE Squamous Epi Cells Auto 3 Amorphous Sediment Auto TRACE Urine Mucus (Auto) RARE Urine Ascorbic Acid NEGATIVE Abdomen/Pelvis CT 10/12/19 17:49 IMPRESSION: 1. Difficult evaluation of abdominal contents especially the bowel loops because of cachectic patient without fat planes. There is also no IV contrast. 2. Previous studies demonstrated gastric and small bowel dilatation and this is currently. There is an ostomy present. Suspected colectomy. 3. Atherosclerotic aorta. Atherosclerotic bilateral renal arteries. No evidence for renal atrophy. 4. Previous biliary dilatation appears radiographically resolved. 5. Emphysematous changes in both lower lung buck[place]. Previous reticulonodular infiltrates mostly resolved. There is residual irregular nodule on the left lower lobe medially which was not seen previously and is most likely residual infection. 10/12/19 21:02 Called and spoke with Dr. Sanchez who is covering for Dr. Flanagan. Discussed patient's work-up today including her elevated creatinine level. He is okay with discharging patient home and having her follow-up with Dr. Flanagan in the office today considering that patient feels completely improved and wants to go home. - Vital Signs Vital signs: Temp Pulse Resp BP Pulse Ox 98.4 F 17 132/88 H 100 10/12/19 21:14 10/12/19 21:11 10/12/19 21:11 10/12/19 21:11 - Laboratory Result Diagrams: 10/12/19 15:35 10/12/19 15:35 Laboratory results interpreted by me: 10/12/19 10/12/19 10/12/19 15:35 15:35 18:28 RBC 3.57 L Hct 35.7 L MCV 100 H MCH 35.3 H RDW 18.8 H Lymph % (Auto) 7.5 L Seg Neutrophils % 87.6 H Sodium 133.8 L Chloride 96 L Carbon Dioxide 21 L BUN 38 H Creatinine 2.69 H Est GFR ( Amer) 22 L Est GFR (MDRD) Non-Af 18 L Glucose 117 H Total Protein 8.3 H Lipase 314.7 H Urine Protein 100 H Urine Ketones TRACE H Urine Blood MODERATE H Ur Leukocyte Esterase LARGE H Discharge - Discharge Clinical Impression: Nausea vomiting and diarrhea Condition: Stable Disposition: HOME, SELF-CARE Additional Instructions: The CAT scan of your abdomen and pelvis today did not show any life-threatening pathology. Your creatinine was elevated today as discussed. I have written you a prescription for Reglan since you stated that your symptoms completely resolve d after administration of Reglan here in the emergency department. I will give you a another dose before you leave tonight. Please follow-up with Dr. Flanagan tomorrow, call them in the morning to schedule a appointment for the afternoon. Return to the emergency department with any new or worsening symptoms. Prescriptions: Metoclopramide HCl [Reglan 10 mg Tablet] 1 - 2 tab PO ASDIR PRN #25 tablet PRN Reason: Referrals: BYRON ACUÑA PA [Primary Care Provider] - Follow up as needed
[2019-10-12 21:14] VITALS: BP 132/88
== END 2019-10-12 21:26 | disposition home or self-care (01) ==
LOC: ER 15:22
DX: R11.2 Nausea with vomiting, unspecified (principal); R19.7 Diarrhea, unspecified; F17.200 Nicotine dependence, unspecified, uncomplicated; K50.90 Crohn's disease, unspecified, without complications; I10 Essential (primary) hypertension; Z93.2 Ileostomy status; Z90.49 Acquired absence of other specified parts of digestive tract; Z90.710 Acquired absence of both cervix and uterus
CPT/HCPCS: 96376; 99284; 96361; 96374; 36415; 83690; 85025; 80053; 81001; 74176; J2765; J7030

== ENCOUNTER 2020-01-26 15:34 | Emergency (ER) | payer MEDICARE, OTHER ==
[2020-01-26] MEDS ORDERED: NORMAL SALINE 1000 ML 1,000 ML IV ONE (16:47)
[2020-01-26] MEDS ORDERED: METOCLOPRAMIDE HCL INJ/PF 10 MG/2 ML SDV IV ONE ×2 (16:47→21:15)
--- NOTE | 2020-01-26 16:48 | ER Document Report ---
ED Medical Screen (RME) - General Stated Complaint: NAUSEA Time Seen by Provider: 01/26/20 16:44 Primary Care Provider: BYRON ACUÑA PA [Primary Care Provider] - Follow up as needed Mode of Arrival: Medic Information source: Patient Notes: 59-year-old female with history of Crohn's presents emergency department with reports of vomiting since 8:00 this morning. Reports some abdominal pain worse when she vomits. She reports she also becomes nauseated and vomiting when she is under a lot of stress. She reports she is under a lot of stress now. Denies fever and diarrhea. Patient reports she took antinausea medicine this morning without relief of symptoms. I have greeted and performed a rapid initial assessment of this patient. A comprehensive ED assessment and evaluation of the patient, analysis of test results and completion of the medical decision making process will be conducted by additional ED providers. TRAVEL OUTSIDE OF THE [place] IN LAST 30 DAYS: No - Related Data Allergies/Adverse Reactions: No Known Drug Allergies Allergy (Verified 01/26/20 16:43) Past Medical History - Past Medical History Cardiac Medical History: Reports: Hx Hypertension Pulmonary Medical History: Denies: Hx Tuberculosis Neurological Medical History: Denies: Hx Seizures Renal/ Medical History: Denies: Hx Peritoneal Dialysis GI Medical History: Reports: Hx Crohn's Disease, Hx Gastroesophageal Reflux Disease. Denies: Hx Hepatitis, Hx Ulcerative Colitis Musculoskeltal Medical History: Denies Hx Fibromyalgia, Denies Hx Gout Skin Medical History: Denies Hx Psoriasis Psychiatric Medical History: Reports: Hx Depression Infectious Medical History: Denies: Hx Hepatitis, Hx MRSA, Hx VRE Past Surgical History: Reports: Hx Abdominal Surgery - colostomy, Hx Appendectomy, Hx Bowel Surgery, Hx Cholecystectomy, Hx Hysterectomy, Hx Ileostomy, Hx Rectal Surgery, Other - colostomy in 2004 then colon resection and ileostomy in 2012 at [place]. Denies: Hx Pacemaker - Immunizations Hx Diphtheria, Pertussis, Tetanus Vaccination: Yes Physical Exam - Vital signs Vitals: Temp Pulse Resp BP Pulse Ox 98.0 F 84 18 158/85 H 98 01/26/20 16:29 01/26/20 16:29 01/26/20 16:29 01/26/20 16:29 01/26/20 16:29 Course - Vital Signs Vital signs: Temp Pulse Resp BP Pulse Ox 98.0 F 84 18 158/85 H 98 01/26/20 16:29 01/26/20 16:29 01/26/20 16:29 01/26/20 16:29 01/26/20 16:29 Doctor's Discharge - Discharge Referrals: BYRON ACUÑA PA [Primary Care Provider] - Follow up as needed
[2020-01-26 17:11] LABS: ABSOLUTE LYMPHOCYTES (AUTO) 0.4 10^3/uL (0.5-4.7); ABSOLUTE MONOCYTES (AUTO) 0.1 10^3/uL (0.1-1.4); BASOPHILS % (AUTO) 0.3 % (0-2); HEMATOCRIT 34.6 % (36.0-47.0); HEMOGLOBIN 12.6 g/dL (12.0-15.5); LYMPHOCYTES % (AUTO) 6.5 % (13-45); MEAN CORPUSCULAR HEMOGLOBIN 38.2 pg (27.0-33.4); MEAN CORPUSCULAR HGB CONC 36.4 g/dL (32.0-36.0); MEAN CORPUSCULAR VOLUME 105 fl (80-97); MONOCYTES % (AUTO) 1.6 % (3-13); PLATELET COUNT 488 10^3/uL (150-450); RED CELL DISTRIBUTION WIDTH 16.2 % (11.5-14.0); SEGMENTED NEUTROPHILS % (AUTO) 91.6 % (42-78); TOTAL CELLS COUNTED % (AUTO) 100 %; WHITE BLOOD COUNT 6.5 10^3/uL (4.0-10.5)
[2020-01-26 17:33] LABS: ALBUMIN 5.3 g/dL (3.5-5.0); ALKALINE PHOSPHATASE 91 U/L (38-126); ANION GAP 19 (5-19); ASPARTATE AMINO TRANSFERASE 43 U/L (14-36); BILIRUBIN,DIRECT 0.4 mg/dL (0.0-0.4); BILIRUBIN,TOTAL 0.9 mg/dL (0.2-1.3); BLOOD UREA NITROGEN 23 mg/dL (7-20); CARBON DIOXIDE 18 mmol/L (22-30); CHLORIDE 96 mmol/L (98-107); GLUCOSE 133 mg/dL (75-110); POTASSIUM 5.1 mmol/L (3.6-5.0); TOTAL PROTEIN 9.3 g/dL (6.3-8.2)
[2020-01-26] MEDS ORDERED: HYDROMORPHONE HCL INJ/PF 2 MG/ML AMPULE IV ONE (21:05)
[2020-01-26] MEDS ORDERED: ONDANSETRON HCL INJ/PF 4 MG/2 ML SDV IV ONE (21:05)
[2020-01-26] MEDS ORDERED: RINGERS SOLUTION,LACTATED 1,000 ML IV ONE (21:07)
--- NOTE | 2020-01-26 21:22 | ER Document Report ---
ED General - General Chief Complaint: Nausea/Vomiting Stated Complaint: NAUSEA Time Seen by Provider: 01/26/20 16:44 Primary Care Provider: BYRON ACUÑA PA [NO LOCAL MD] - Follow up as needed Mode of Arrival: Medic Notes: 59-year-old female with a history of Crohn's disease presents emergency department complaining of weakness and nausea and vomiting all day long. States that she had to wake up significantly earlier than usual this morning and this is a known trigger for her Crohn's. Her Crohn's tends to be triggered by anything that causes increased stress. Patient states that she started with nausea and vomiting, it is nonbloody and nonbilious, it has now developed into some epigastric abdominal pain associated with dry heaving and minimal output otherwise. States this feels identical to her usual Crohn's flares. Denies fevers, denies unusual pain. States the pain in her epigastric region feels like her usual irritation of hiatal hernia that she always has with a Crohn's flare and vomiting. Denies any abnormal output from her ostomy on the left side that she has had for the past 15 to 16 years. TRAVEL OUTSIDE OF THE [place] IN LAST 30 DAYS: No - Related Data Allergies/Adverse Reactions: No Known Drug Allergies Allergy (Verified 01/26/20 16:43) Past Medical History - General Information source: Patient - Social History Smoking Status: Current Every Day Smoker Family History: DM, Hypertension Patient has suicidal ideation: No Patient has homicidal ideation: No - Past Medical History Cardiac Medical History: Reports: Hx Hypertension Pulmonary Medical History: Denies: Hx Tuberculosis Neurological Medical History: Denies: Hx Seizures Renal/ Medical History: Denies: Hx Peritoneal Dialysis GI Medical History: Reports: Hx Crohn's Disease, Hx Gastroesophageal Reflux D isease. Denies: Hx Hepatitis, Hx Ulcerative Colitis Musculoskeletal Medical History: Denies Hx Fibromyalgia, Denies Hx Gout Skin Medical History: Denies Hx Psoriasis Psychiatric Medical History: Reports: Hx Depression Infectious Medical History: Denies: Hx Hepatitis, Hx MRSA, Hx VRE Past Surgical History: Reports: Hx Abdominal Surgery - colostomy, Hx Appendectomy, Hx Bowel Surgery, Hx Cholecystectomy, Hx Hysterectomy, Hx Ileostomy, Hx Rectal Surgery, Other - colostomy in 2004 then colon resection and ileostomy in 2012 at [place]. Denies: Hx Pacemaker - Immunizations Hx Diphtheria, Pertussis, Tetanus Vaccination: Yes Review of Systems - Review of Systems Constitutional: See HPI, Weakness Gastrointestinal: See HPI -: Yes All other systems reviewed and negative Physical Exam - Vital signs Vitals: Temp Pulse Resp BP Pulse Ox 98.0 F 84 18 158/85 H 98 01/26/20 16:29 01/26/20 16:29 01/26/20 16:29 01/26/20 16:29 01/26/20 16:29 Interpretation: Hypertensive - Notes Notes: GENERAL: Alert, interacts well. Appears tired and mildly uncomfortable, somew hat cachectic. HEAD: Normocephalic, atraumatic EYES: Pupils equal, round and reactive to light, extraocular movements intact. ENT: Oral mucosa moist, tongue midline. NECK: Full range of motion, supple, trachea midline. LUNGS: Clear to auscultation bilaterally, no wheezes, rales or rhonchi, no respi ratory distress. HEART: Regular rate and rhythm, no murmurs, gallops, rubs. ABDOMEN: Soft, mild epigastric and right upper quadrant tenderness palpation, nondistended, bowel sounds present in all 4 quadrants. Ostomy in the left side of the abdomen draining liquid brown stool, no blood. EXTREMITIES: Moves all 4 extremities spontaneously, no edema, radial and dorsalis pedis pulses 2/4 bilaterally. No cyanosis. NEUROLOGICAL: Alert and oriented x3, normal speech, no facial droop. PSYCH: Normal mood, normal affect. SKIN: Warm, Dry, normal turgor, no rashes or lesions noted. Course - Re-evaluation Re-evalutation: 01/26/20 23:45 CBC has elevated platelets at 488, otherwise unremarkable, CMP shows somewhat low sodium 132.9, mildly elevated potassium of 5.1, CO2 is low at 18 confirming mild dehydration, BUN and creatinine are both elevated, expect all of these to improve with hydration with lactated Ringer's and normal saline, LFTs minimally elevated, lipase slightly elevated at 381.1, patient had may have mild pancreat itis associated with this vomiting but this level is really quite low and her symptoms are quite mild. After half a milligram of Dilaudid, 10 mg of Reglan and 4 mg of Zofran the patient states that her nausea and vomiting is completely gone, she is requesting something to drink and is quite excited to go home should her symptoms stay controlled after trying something by mouth. Patient states this feels identical to her usual Crohn's flares, does not wish to receive a CT scan at this time. - Vital Signs Vital signs: Temp Pulse Resp BP Pulse Ox 98.0 F 84 18 158/85 H 98 01/26/20 16:29 01/26/20 16:29 01/26/20 16:29 01/26/20 16:29 01/26/20 16:29 - Laboratory Result Diagrams: 01/26/20 16:50 01/26/20 16:50 Laboratory results interpreted by me: 01/26/20 01/26/20 01/26/20 16:50 16:50 16:50 RBC 3.30 L Hct 34.6 L MCV 105 H MCH 38.2 H MCHC 36.4 H RDW 16.2 H Plt Count 488 H Lymph % (Auto) 6.5 L [place] % (Auto) 1.6 L Absolute Lymphs (auto) 0.4 L Seg Neutrophils % 91.6 H Sodium 132.9 L Potassium 5.1 H Chloride 96 L Carbon Dioxide 18 L BUN 23 H Creatinine 1.58 H Est GFR ( Amer) 40 L Est GFR (MDRD) Non-Af 33 L Glucose 133 H AST 43 H ALT 45 H Total Protein 9.3 H Albumin 5.3 H Lipase 381.1 H Discharge - Discharge Clinical Impression: Epigastric abdominal pain, ALEX (acute kidney injury), Dehydration Crohns disease Qualifiers: Gastrointestinal tract location: unspecified location Digestive disease complication type: without complication Qualified Code(s): K50.90 - Crohn's disease, unspecified, without complications Nausea and vomiting Qualifiers: Vomiting type: unspecified Vomiting Intractability: non-intractable Qualified Code(s): R11.2 - Nausea with vomiting, unspecified Condition: Stable Disposition: HOME, SELF-CARE Additional Instructions: Today after receiving Reglan and Zofran your vomiting stopped. We both agree that as this is typical of your usual Crohn's flares there is no need to perform a CT scan at this point. I would strongly recommend that if your pain worsens, your symptoms return and the vomiting cannot be controlled with the Reglan and a Zofran by mouth or if you develop a fever, large amounts of blood in the vomit or any new or concerning symptoms that you return to the emergency department. I have prescribed Reglan which you may take up to every 6 hours as needed for vomiting, it can make some people a little bit jittery so you may take 25 mg of Benadryl with it available [id number] as well. I have also prescribed Zofran ODT, you may take 1 to 2 tablets every 6 hours as needed for vomiting. It will dissolve under your tongue. Please start out by drinking only clear liquids and slowly advance her diet. Do not start out by eating greasy foods. Prescriptions: Ondansetron [Zofran Odt 4 mg Tablet] 1 - 2 tab PO Q4HP PRN #20 tab.rapdis PRN Reason: Metoclopramide HCl [Reglan 10 mg Tablet] 1 - 2 tab PO ASDIR PRN #25 tablet PRN Reason: Referrals: BYRON ACUÑA PA [NO LOCAL MD] - Follow up as needed
[2020-01-27 00:35] VITALS: BP 145/60
== END 2020-01-27 00:33 | disposition home or self-care (01) ==
LOC: ER 15:34
DX: E86.0 Dehydration (principal); N17.9 Acute kidney failure, unspecified; R10.13 Epigastric pain; R11.2 Nausea with vomiting, unspecified; R53.1 Weakness; K50.90 Crohn's disease, unspecified, without complications; F17.200 Nicotine dependence, unspecified, uncomplicated; I10 Essential (primary) hypertension; Z90.49 Acquired absence of other specified parts of digestive tract; Z90.710 Acquired absence of both cervix and uterus; Z93.2 Ileostomy status
CPT/HCPCS: 99283; 96361; 96374; 96375; 36415; 83690; 85025; 80053; J1170; J2405; J7030; J7120

== ENCOUNTER 2020-01-28 12:57 | Emergency (ER) | payer MEDICARE, OTHER ==
[2020-01-28] MEDS ORDERED: NORMAL SALINE 1000 ML 1,000 ML IV PRN (13:34)
--- NOTE | 2020-01-28 13:36 | ER Document Report ---
ED Medical Screen (RME) - General Chief Complaint: Abdominal Pain Stated Complaint: ABDOMINAL PAIN Time Seen by Provider: 01/28/20 13:23 Primary Care Provider: NUPUR COTE MD [Primary Care Provider] - Follow up as needed Information source: Patient Notes: This is a 59-year-old female presented to the emergency room today stating she has a history of Crohn's disease was seen here 2 days ago told to return for any pain she followed up with her PMD she is still unable to hold anything down has a lot of pain and feels dehydrated. TRAVEL OUTSIDE OF THE [place] IN LAST 30 DAYS: No - Related Data Allergies/Adverse Reactions: No Known Drug Allergies Allergy (Verified 01/26/20 16:43) Past Medical History - Social History Frequency of alcohol use: None Drug Abuse: None - Past Medical History Cardiac Medical History: Reports: Hx Hypertension Pulmonary Medical History: Denies: Hx Tuberculosis Neurological Medical History: Denies: Hx Seizures Renal/ Medical History: Denies: Hx Peritoneal Dialysis GI Medical History: Reports: Hx Crohn's Disease, Hx Gastroesophageal Reflux Disease. Denies: Hx Hepatitis, Hx Ulcerative Colitis Musculoskeltal Medical History: Denies Hx Fibromyalgia, Denies Hx Gout Skin Medical History: Denies Hx Psoriasis Psychiatric Medical History: Reports: Hx Depression Infectious Medical History: Denies: Hx Hepatitis, Hx MRSA, Hx VRE Past Surgical History: Reports: Hx Abdominal Surgery - colostomy, Hx Appendectomy, Hx Bowel Surgery, Hx Cholecystectomy, Hx Hysterectomy, Hx Ileostomy, Hx Rectal Surgery, Other - colostomy in 2004 then colon resection and ileostomy in 2012 at [place]. Denies: Hx Pacemaker - Immunizations Hx Diphtheria, Pertussis, Tetanus Vaccination: Yes Physical Exam - Vital signs Vitals: Temp Pulse Resp BP Pulse Ox 98.1 F 57 L 22 H 174/91 H 95 01/28/20 13:08 01/28/20 13:08 01/28/20 13:08 01/28/20 13:08 01/28/20 13:08 - Abdominal Inspection: Normal Distension: No distension Bowel sounds: Normal Tenderness: Tender Organomegaly: No organomegaly Course - Vital Signs Vital signs: Temp Pulse Resp BP Pulse Ox 98.1 F 57 L 22 H 174/91 H 95 01/28/20 13:08 01/28/20 13:08 01/28/20 13:08 01/28/20 13:08 01/28/20 13:08 Doctor's Discharge - Discharge Referrals: NUPUR COTE MD [Primary Care Provider] - Follow up as needed
[2020-01-28 14:35] LABS: ABSOLUTE BASOPHILS # (AUTO) 0.1 10^3/uL (0.0-0.2); ABSOLUTE LYMPHOCYTES (AUTO) 0.5 10^3/uL (0.5-4.7); ABSOLUTE MONOCYTES (AUTO) 0.2 10^3/uL (0.1-1.4); ABSOLUTE NEUT (AUTO) 5.3 10^3/uL (1.7-8.2); BASOPHILS % (AUTO) 1.3 % (0-2); LYMPHOCYTES % (AUTO) 8.8 % (13-45); MEAN CORPUSCULAR HEMOGLOBIN 37.9 pg (27.0-33.4); MEAN CORPUSCULAR HGB CONC 36.4 g/dL (32.0-36.0); MEAN CORPUSCULAR VOLUME 104 fl (80-97); PLATELET COUNT 444 10^3/uL (150-450); RED BLOOD COUNT 3.17 10^6/uL (3.72-5.28); RED CELL DISTRIBUTION WIDTH 16.5 % (11.5-14.0); SEGMENTED NEUTROPHILS % (AUTO) 86.9 % (42-78); TOTAL CELLS COUNTED % (AUTO) 100 %; WHITE BLOOD COUNT 6.1 10^3/uL (4.0-10.5)
[2020-01-28 14:39] LABS: ALBUMIN 4.9 g/dL (3.5-5.0); ALKALINE PHOSPHATASE 81 U/L (38-126); ANION GAP 13 (5-19); ASPARTATE AMINO TRANSFERASE 45 U/L (14-36); BILIRUBIN,DIRECT 0.4 mg/dL (0.0-0.4); BILIRUBIN,TOTAL 0.7 mg/dL (0.2-1.3); BLOOD UREA NITROGEN 23 mg/dL (7-20); CALCIUM 9.5 mg/dL (8.4-10.2); CARBON DIOXIDE 22 mmol/L (22-30); CHLORIDE 97 mmol/L (98-107); GLUCOSE 118 mg/dL (75-110); POTASSIUM 4.2 mmol/L (3.6-5.0); TOTAL PROTEIN 8.7 g/dL (6.3-8.2)
[2020-01-28] MEDS ORDERED: ONDANSETRON HCL INJ/PF 4 MG/2 ML SDV IV ONE (16:00)
[2020-01-28] MEDS ORDERED: NORMAL SALINE 1000 ML 1,000 ML IV ONE (16:00)
--- NOTE | 2020-01-28 16:04 | ER Document Report ---
ED GI/ - General Chief Complaint: Abdominal Pain Stated Complaint: ABDOMINAL PAIN Time Seen by Provider: 01/28/20 13:23 Primary Care Provider: NUPUR COTE MD [Primary Care Provider] - Follow up as needed Notes: CHIEF COMPLAINT: Continued nausea vomiting HPI: 59-year-old female with history of Crohn's disease who follows with Dr. Estrada in [place] presenting for recurrent vomiting and abdominal discomfort. Patient with history of colostomy in the left lower quadrant. Patient states she is passing stool and flatus. Patient states she was seen here 2 days ago for same complaints, feels dehydrated. States that she has been taking the Zofran and Reglan at home without resolution of the vomiting. No fever. ROS: See HPI - all other systems were reviewed and are otherwise negative Constitutional: no fever Eyes: no drainage, no blurred vision ENT: no runny nose, no sore throat Cardiovascular: no chest pain Resp: no SOB, no cough GI: Positive vomiting, positive abdominal pain : no dysuria Integumentary: no rash Allergy: no hives Musculoskeletal: no extremity pain or swelling Neurological: no numbness/tingling, no weakness MEDICATIONS: I agree with the patient medications as charted by the RN. ALLERGIES: I agree with the allergies as charted by the RN. PAST MEDICAL HISTORY/PAST SURGICAL HISTORY: Reviewed and agree as charted by RN. SOCIAL HISTORY: Reviewed and agree as charted by RN. FAMILY HISTORY: No significant familial comorbid conditions directly related to patient complaint EXAM: Reviewed vital signs as charted by RN. CONSTITUTIONAL: Alert and oriented and responds appropriately to questions. Chronically ill -appearing HEAD: Normocephalic; atraumatic EYES: PERRL; Conjunctivae clear, sclerae non-icteric ENT: normal nose; no rhinorrhea; moist mucous membranes; pharynx without lesions noted, no uvula edema or deviation, no tonsillar hypertrophy, phonation normal NECK: Supple without meningismus; non-tender; no cervical lymphadenopathy, no masses CARD: RRR; no murmurs, no clicks, no rubs, no gallops; symmetric distal pulses RESP: Normal chest excursion without splinting or tachypnea; breath sounds clear and equal bilaterally; no wheezes, no rhonchi, no rales, pulse oximetry 98% on room air not hypoxic ABD/GI: Normal bowel sounds; non-distended; soft, non-tender, mild epigastric tenderness on palpation, no guarding; no palpable organomegaly or masses. BACK: The back appears normal and is non-tender to palpation, there is no CVA tenderness EXT: Normal ROM in all joints; non-tender to palpation; no cyanosis, no effusions, no edema SKIN: Normal color for age and race; warm; dry; good turgor; no acute lesions noted NEURO: Moves all extremities equally; Motor and sensory function intact PSYCH: The patient's mood and manner are appropriate. Grooming and personal hygiene are appropriate. MDM: 59-year-old female with history of Crohn's with colostomy presenting for continued abdominal discomfort with vomiting. Will aggressively hydrate, treat vomiting and reassess, patient has lab work drawn through the triage process did not show significant differences from her lab work 2 days ago TRAVEL OUTSIDE OF THE [place].S. IN LAST 30 DAYS: No - Related Data Allergies/Adverse Reactions: No Known Drug Allergies Allergy (Verified 01/26/20 16:43) Past Medical History - General Information source: Patient - Social History Smoking Status: Current Every Day Smoker Frequency of alcohol use: None Drug Abuse: None Family History: DM, Hypertension Patient has suicidal ideation: No Patient has homicidal ideation: No - Past Medical History Cardiac Medical History: Reports: Hx Hypertension Pulmonary Medical History: Denies: Hx Tuberculosis Neurological Medical History: Denies: Hx Seizures Renal/ Medical History: Denies: Hx Peritoneal Dialysis GI Medical History: Reports: Hx Crohn's Disease, Hx Gastroesophageal Reflux Disease. Denies: Hx Hepatitis, Hx Ulcerative Colitis Musculoskeletal Medical History: Denies Hx Fibromyalgia, Denies Hx Gout Skin Medical History: Denies Hx Psoriasis Psychiatric Medical History: Reports: Hx Depression Infectious Medical History: Denies: Hx Hepatitis, Hx MRSA, Hx VRE Past Surgical History: Reports: Hx Abdominal Surgery - colostomy, Hx Appendectomy, Hx Bowel Surgery, Hx Cholecystectomy, Hx Hysterectomy, Hx Ileostomy, Hx Rectal Surgery, Other - colostomy in 2004 then colon resection and ileostomy in 2012 at [place]. Denies: Hx Pacemaker - Immunizations Hx Diphtheria, Pertussis, Tetanus Vaccination: Yes Physical Exam - Vital signs Vitals: Temp Pulse Resp BP Pulse Ox 98.1 F 57 L 22 H 174/91 H 95 01/28/20 13:08 01/28/20 13:08 01/28/20 13:08 01/28/20 13:08 01/28/20 13:08 Course - Re-evaluation Re-evalutation: 01/28/20 18:23 Patient is tolerating oral fluids. Will discharge home on Phenergan, follow-up with her chalk extruding machine operator in [place] by phone tomorrow - Vital Signs Vital signs: Temp Pulse Resp BP Pulse Ox 98.1 F 57 L 22 H 174/91 H 95 01/28/20 13:08 01/28/20 13:08 01/28/20 13:08 01/28/20 13:08 01/28/20 13:08 - Laboratory Result Diagrams: 01/28/20 14:08 01/28/20 14:08 Laboratory results interpreted by me: 01/28/20 01/28/20 01/28/20 13:41 14:08 14:08 RBC 3.17 L Hct 33.0 L MCV 104 H MCH 37.9 H MCHC 36.4 H RDW 16.5 H Lymph % (Auto) 8.8 L Seg Neutrophils % 86.9 H Sodium 132.4 L Chloride 97 L BUN 23 H Creatinine 1.62 H Est GFR ( Amer) 39 L Est GFR (MDRD) Non-Af 32 L Glucose 118 H AST 45 H ALT 47 H Total Protein 8.7 H Urine Protein 100 H Urine Ketones TRACE H Urine Blood SMALL H Ur Leukocyte Esterase MODERATE H Discharge - Discharge Clinical Impression: Persistent recurrent vomiting Condition: Stable Disposition: HOME, SELF-CARE Additional Instructions: Take the Phenergan as prescribed for nausea vomiting. No driving on Phenergan. Follow-up with your chalk extruding machine operator by phone tomorrow to schedule reevaluat ion Prescriptions: Promethazine HCl [Phenergan 25 mg Tablet] 12.5 mg PO Q6H PRN #10 tablet PRN Reason: Referrals: NUPUR COTE MD [Primary Care Provider] - Follow up as needed
[2020-01-28 16:50] LABS: APPEARANCE,URINE SLIGHTLY-CLOUDY; BILIRUBIN,URINE NEGATIVE (NEGATIVE); COLOR,URINE YELLOW; GLUCOSE, URINE NEGATIVE (NEGATIVE); KETONES,URINE TRACE mg/dL (NEGATIVE); LEUKOCYTE ESTERASE,URINE MODERATE (NEGATIVE); NITRITE,URINE NEGATIVE (NEGATIVE); PROTEIN,URINE 100 mg/dL (NEGATIVE); URINE SPECIFIC GRAVITY 1.015; UROBILINOGEN,URINE NEGATIVE mg/dL (<2.0)
[2020-01-28] MEDS ORDERED: PROMETHAZINE HCL INJ 25 MG/1 ML VIAL IV ONE (16:55)
--- NOTE | 2020-01-28 17:16 | RADIOLOGY REPORT (SQ) ---
EXAM DESCRIPTION: KUB/ABDOMEN (SINGLE VIEW) COMPLETED DATE/TIME: 01/28/2020 4:48 pm REASON FOR STUDY: vomiting COMPARISON: 01/20/2018 NUMBER OF VIEWS: One view. TECHNIQUE: Supine radiographic image of the abdomen acquired. LIMITATIONS: None. FINDINGS: BOWEL GAS PATTERN: Normal bowel gas pattern. No dilated loops. CALCIFICATIONS: No suspicious calcifications. SOFT TISSUES: No gross mass or suggestion of organomegaly. HARDWARE: There is an ostomy in the left lower quadrant. Surgical clips are present. BONES: No acute fracture. No worrisome bone lesions. OTHER: No other significant finding. IMPRESSION: NO RADIOGRAPHIC EVIDENCE FOR ACUTE ABDOMINAL DISEASE. TECHNICAL DOCUMENTATION: JOB ID: [id number] 2010 [employer]- All Rights Reserved Reading location - IP/workstation name: [email or web address]
--- NOTE | 2020-01-28 17:40 | RADIOLOGY REPORT (SQ) ---
EXAM DESCRIPTION: CT ABD/PELVIS WITH IV ONLY COMPLETED DATE/TIME: 01/28/2020 5:11 pm REASON FOR STUDY: abdominal pain COMPARISON: None. TECHNIQUE: CT scan of the abdomen and pelvis performed using helical scanning technique with dynamic intravenous contrast injection. No oral contrast. Images reviewed with lung, soft tissue, and bone windows. Reconstructed coronal and sagittal MPR images reviewed. Delayed images for evaluation of the urinary system also acquired. All images stored on PACS. All CT scanners at this facility use dose modulation, iterative reconstruction, and/or weight based d osing when appropriate to reduce radiation dose to as low as reasonably achievable (ALARA). [facility]: Dose Right [facility]: CareDose [facility]: Dose Right [facility]: Teradose 4D [facility]: [employer] CONTRAST TYPE AND DOSE: contrast/concentration: Isovue 300.00 mg/ml; Total Contrast Delivered: 50.0 ml; Total Saline Delivered: 65.0 ml RENAL FUNCTION: BUN 23 creatinine 1.58 RADIATION DOSE: CT Rad equipment meets quality standard of care and radiation dose reduction techniq ues were employed. CTDIvol: 4.8 - 5.0 mGy. DLP: 443 mGy-cm.. LIMITATIONS: None. FINDINGS: LOWER CHEST: No significant findings. No nodules or infiltrates. LIVER: Normal size. No masses. No dilated ducts. SPLEEN: Normal size. No focal lesions. PANCREAS: No masses. No significant calcifications. No adjacent inflammation or peripancreatic fluid collections. Pancreatic duct not dilated. GALLBLADDER: Surgically absent. ADRENAL GLANDS: No significant masses or asymmetry. RIGHT KIDNEY AND URETER: No solid masses. No significant calcifications. No hydronephrosis or hyd roureter. LEFT KIDNEY AND URETER: No solid masses. No significant calcifications. No hydronephrosis or hydr oureter. AORTA AND VESSELS: No aneurysm. No dissection. Renal arteries, SMA, celiac without stenosis. RETROPERITONEUM: No retroperitoneal adenopathy, hemorrhage or masses. BOWEL AND PERITONEAL CAVITY: Prior colectomy. Left lower quadrant ileostomy. APPENDIX: Surgically absent. PELVIS: No mass. No free fluid. Normal bladder. ABDOMINAL WALL: Left lower quadrant ileostomy. BONES: No significant or acute findings. OTHER: No other significant finding. IMPRESSION: NO SIGNIFICANT OR ACUTE FINDING IN THE ABDOMEN OR PELVIS ON CT SCAN WITH IV CONTRAST. TECHNICAL DOCUMENTATION: JOB ID: [id number] Quality ID # [id number]: Final reports with documentation of one or more dose reduction techniques (e.g., Au tomated exposure control, adjustment of the mA and/or kV according to patient size, use of iterative reconstruction technique) 2010 [employer]- All Rights Reserved Reading location - IP/workstation name: [email or web address]
--- NOTE | 2020-01-28 18:18 | EKG REPORT ---
SEVERITY:- NORMAL ECG - SINUS RHYTHM : Confirmed by: Estefany Stack 28-Jan-2020 18:16:18
[2020-01-28 19:11] VITALS: BP 151/81
== END 2020-01-28 19:10 | disposition home or self-care (01) ==
LOC: ER 12:57
DX: R11.15 Cyclical vomiting syndrome unrelated to migraine (principal); R10.9 Unspecified abdominal pain; K50.90 Crohn's disease, unspecified, without complications; Z93.3 Colostomy status; Z79.899 Other long term (current) drug therapy; F17.200 Nicotine dependence, unspecified, uncomplicated; I10 Essential (primary) hypertension
CPT/HCPCS: 93005; 99284; 96361; 96374; 96375; 36415; 83690; 85025; 80053; 81001; 84484; 74018; 74177; 93010; J2550; J2405; J7030

== ENCOUNTER → 2020-07-18 | Outpatient (CLI) | payer MEDICARE, OTHER ==
[2020-07-18 12:52] LABS: ABSOLUTE BASOPHILS # (AUTO) 0.1 10^3/uL (0.0-0.2); ABSOLUTE EOSINOPHILS # (AUTO) 0.1 10^3/uL (0.0-0.6); ABSOLUTE LYMPHOCYTES (AUTO) 1.5 10^3/uL (0.5-4.7); ABSOLUTE MONOCYTES (AUTO) 0.6 10^3/uL (0.1-1.4); ABSOLUTE NEUT (AUTO) 4.5 10^3/uL (1.7-8.2); EOSINOPHILS % (AUTO) 1.2 % (0-6); HEMATOCRIT 41.3 % (36.0-47.0); HEMOGLOBIN 14.4 g/dL (12.0-15.5); LYMPHOCYTES % (AUTO) 21.8 % (13-45); MEAN CORPUSCULAR HEMOGLOBIN 33.7 pg (27.0-33.4); MEAN CORPUSCULAR HGB CONC 34.9 g/dL (32.0-36.0); MEAN CORPUSCULAR VOLUME 97 fl (80-97); MONOCYTES % (AUTO) 8.4 % (3-13); PLATELET COUNT 355 10^3/uL (150-450); RED BLOOD COUNT 4.27 10^6/uL (3.72-5.28); RED CELL DISTRIBUTION WIDTH 13.8 % (11.5-14.0); SEGMENTED NEUTROPHILS % (AUTO) 67.6 % (42-78); TOTAL CELLS COUNTED % (AUTO) 100 %; WHITE BLOOD COUNT 6.7 10^3/uL (4.0-10.5)
[2020-07-18 13:13] LABS: APPEARANCE,URINE SLIGHTLY-CLOUDY; BILIRUBIN,URINE NEGATIVE (NEGATIVE); COLOR,URINE YELLOW; GLUCOSE, URINE NEGATIVE (NEGATIVE); KETONES,URINE NEGATIVE (NEGATIVE); LEUKOCYTE ESTERASE,URINE LARGE (NEGATIVE); NITRITE,URINE NEGATIVE (NEGATIVE); PROTEIN,URINE 30 mg/dL (NEGATIVE); URINE SPECIFIC GRAVITY 1.005; UROBILINOGEN,URINE NEGATIVE mg/dL (<2.0)
[2020-07-18 13:21] LABS: ALBUMIN 4.8 g/dL (3.5-5.0); ANION GAP 10 (5-19); BLOOD UREA NITROGEN 17 mg/dL (7-20); CALCIUM 9.3 mg/dL (8.4-10.2); CARBON DIOXIDE 22 mmol/L (22-30); CHLORIDE 101 mmol/L (98-107); GLUCOSE 84 mg/dL (75-110); PHOSPHORUS 4.4 mg/dL (2.5-4.5); POTASSIUM 4.1 mmol/L (3.6-5.0)
[2020-07-18 13:35] LABS: UR PRO/CREAT RATIO RESULT 0.5 mg/mg (0.0-0.2); URINE CREATININE 63.1 mg/dL (15-278); URINE PROTEIN 31.4 mg/dL (<12)
== END ==
LOC: OD 11:58
PROVIDERS: ATTEND Physician Assistant Medical
DX: N18.3 Chronic kidney disease, stage 3 (moderate) (principal); R80.9 Proteinuria, unspecified; R31.9 Hematuria, unspecified; E87.2 Acidosis; D64.9 Anemia, unspecified; N39.0 Urinary tract infection, site not specified
CPT/HCPCS: 36415; 80069; 81001; 82570; 83970; 84156; 85025

== ENCOUNTER 2020-09-28 17:10 | Emergency (ER) | payer MEDICARE, OTHER ==
[2020-09-28 18:41] LABS: ALBUMIN 3.9 g/dL (3.5-5.0); ALKALINE PHOSPHATASE 55 U/L (38-126); ANION GAP 14 (5-19); ASPARTATE AMINO TRANSFERASE 33 U/L (14-36); BILIRUBIN,DIRECT 0.1 mg/dL (0.0-0.4); BILIRUBIN,TOTAL 0.4 mg/dL (0.2-1.3); BLOOD UREA NITROGEN 20 mg/dL (7-20); CALCIUM 8.3 mg/dL (8.4-10.2); CARBON DIOXIDE 20 mmol/L (22-30); CHLORIDE 94 mmol/L (98-107); GLUCOSE 124 mg/dL (75-110); POTASSIUM 3.4 mmol/L (3.6-5.0); TOTAL PROTEIN 7.1 g/dL (6.3-8.2)
[2020-09-28 18:42] LABS: ALCOHOL < 10 mg/dL (NONE DETECTED)
[2020-09-28] MEDS ORDERED: MORPHINE SULFATE 10 MG/ML INJ IV ONE (20:43)
[2020-09-28] MEDS ORDERED: ONDANSETRON HCL INJ/PF 4 MG/2 ML SDV IV ONE (20:44)
[2020-09-28] MEDS ORDERED: NORMAL SALINE 1000 ML 1,000 ML IV ONE (20:44)
--- NOTE | 2020-09-28 20:53 | ER Document Report ---
ED General - General Chief Complaint: Probable Seizure Stated Complaint: ALTERED MENTAL STATUS,VOMITING Time Seen by Provider: 09/28/20 20:03 Primary Care Provider: NUPUR COTE MD [Primary Care Provider] - Follow up as needed TRAVEL OUTSIDE OF THE U.S. IN LAST 30 DAYS: No - HPI Notes: Patient is a 60-year-old female who presents to the emergency department for evaluation of seizure activity. She has no history of seizures. She was with her niece. She was sitting on the bed, going to smoke a cigarette. Patient's niece states her head rolled to the right, then her eyes rolled back, and she continued to extend at the neck. She then progressed into a generalized tonic- clonic sounding seizure. He states that she held her from falling, states that this lasted about 5 to 7 minutes. She did bite her lip. She had an approximate 15-minute postictal. The patient states that she was feeling nauseated prior to this activity, but denied any other warning symptoms. She states that she has frequent nausea, associated with her Crohn's disease as well as associated with her anxiety and a hiatal hernia. Patient has had a frontal headache for the last 3 days. She is been trying Tylenol without any significant relief. She denies any associated visual changes. No difficulty speaking or swallowing. Moving her arms and legs without difficulty. She states that her output from her colostomy seems to be more watery and more profuse. Otherwise, she has been taking her medications as prescribed. She denies any recent head injury. She states she has felt "hot on the inside" but denies any sally fevers or chills. - Related Data Allergies/Adverse Reactions: No Known Drug Allergies Allergy (Verified 01/26/20 16:43) Home Medications: List reviewed Past Medical History - General Information source: Patient - Social History Smoking Status: Current Every Day Smoker Frequency of alcohol use: None Drug Abuse: None Family History: DM, Hypertension - Past Medical History Cardiac Medical History: Reports: Hx Hypertension Pulmonary Medical History: Denies: Hx Tuberculosis Neurological Medical History: Denies: Hx Seizures Renal/ Medical History: Denies: Hx Peritoneal Dialysis GI Medical History: Reports: Hx Crohn's Disease, Hx Gastroesophageal Reflux Disease. Denies: Hx Hepatitis, Hx Ulcerative Colitis Musculoskeletal Medical History: Denies Hx Fibromyalgia, Denies Hx Gout Skin Medical History: Denies Hx Psoriasis Psychiatric Medical History: Reports: Hx Depression Infectious Medical History: Denies: Hx Hepatitis, Hx MRSA, Hx VRE Past Surgical History: Reports: Hx Abdominal Surgery - colostomy, Hx Appendectomy, Hx Bowel Surgery, Hx Cholecystectomy, Hx Hysterectomy, Hx Ileostomy, Hx Rectal Surgery, Other - colostomy in 2004 then colon resection and ileostomy in 2012 at [place]. Denies: Hx Pacemaker - Immunizations Hx Diphtheria, Pertussis, Tetanus Vaccination: Yes Review of Systems - Review of Systems EENT: No symptoms reported Cardiovascular: No symptoms reported Respiratory: No symptoms reported Gastrointestinal: See HPI Genitourinary: No symptoms reported Musculoskeletal: No symptoms reported Skin: No symptoms reported Neurological/Psychological: See HPI -: Yes All other systems reviewed and negative Physical Exam - Vital signs Vitals: Resp Pulse Ox 22 H 98 09/28/20 17:46 09/28/20 17:46 - Notes Notes: Vital signs reviewed, please refer to chart. Head is normocephalic, atraumatic. Pupils equal round, reactive to light. Oral mucosa is moist. There is a small abrasion to the right upper lip, no clear tongue trauma. Uvula is midline. Neck is supple without meningismus. Heart is regular rate and rhythm. Lungs are clear to auscultation bilaterally. Abdomen is flat, nontender, normoactive bowel sounds throughout. Ostomy in left lower abdomen with green liquid stool, pink stoma. Extremities without cyanosis, clubbing. Posterior calves are nontender. Peripheral pulses are equal. Skin is warm and dry. Patient is awake, alert, oriented x3. Cranial nerves II - XII are grossly intact without focal neurological deficits. Strength is plus 5 out of 5 bilateral upper and lower extremities. Sensation is intact. Reflexes symmetrical. Intact [id number], rapid alternating movements, [id number]. Course - Re-evaluation Re-evalutation: 09/28/20 20:47 Patient presents to the emergency department for evaluation. She had vital signs performed, laboratory investigations, imaging. Laboratory investigations show mild hyponatremia. This is been a chronic ongoing issue for her. She has mild CKD which is chronic as well. Neurological exam is unremarkable. Preliminary read of CT scan is unremarkable per my eye. Patient will be given IV fluids, pain and nausea medication. Waiting for redraw on CBC. She is currently stable, we will continue to monitor. 09/28/20 22:15 Patient remained stable. She has very mild electrolyte abnormalities, but she has ongoing and chronic nausea. I am not inclined to give her oral potassium replacement. I talked to her at length about potassium and magnesium-containing foods, she voiced understanding. Her headache is mildly improved after pain m edication. CBC is largely unremarkable. I spoke with Dr. Cote at 2212. He asks that we start the patient on Keppra. She is to go to his office in the morning to be seen. She voiced understanding. Otherwise, patient is given instructions that she is absolutely not to drive until evaluated by neurology. She voiced understanding. - Vital Signs Vital signs: Temp Pulse Resp BP Pulse Ox 14 174/97 H 96 09/28/20 21:03 09/28/20 21:03 09/28/20 21:03 - Laboratory Result Diagrams: 09/28/20 21:20 09/28/20 15:40 Laboratory results interpreted by me: 09/28/20 09/28/20 09/28/20 15:40 21:20 21:20 WBC 12.6 H Lymph % (Auto) 9.3 L Absolute Neuts (auto) 10.6 H Seg Neutrophils % 84.3 H Sodium 128.1 L Potassium 3.4 L Chloride 94 L Carbon Dioxide 20 L Creatinine 1.32 H Est GFR ( Amer) 49 L Est GFR (MDRD) Non-Af 41 L Glucose 124 H Calcium 8.3 L Magnesium 1.4 L Urine Protein 100 H Urine Blood MODERATE H Ur Leukocyte Esterase LARGE H - Diagnostic Test Radiology reviewed: Reports reviewed Radiology results interpreted by me: 09/28/20 22:[address] 09/28/20 20:12 IMPRESSION: 1. Borderline enlarged pituitary gland appreciated on sagittal images. 2. No suspicious intracranial abnormalities. TECHNICAL DOCUMENTATION: Quality ID # 436: Final reports with documentation of one or more dose reduction techniques (e.g., Automated exposure control, adjustment of the mA and/or kV according to patient size, use of iterative reconstruction technique) copyright 2011 [employer]- All Rights Reserved Discharge - Discharge Clinical Impression: Dehydration, Seizure, Hypokalemia, Hypomagnesemia Condition: Stable Disposition: HOME, SELF-CARE Instructions: New Seizure ([facility]), Hypokalemia ([facility]) Additional Instructions: ABSOLUTELY NO DRIVING. Please take Keppra as directed. Follow-up with Dr. Cote's office in the morning. Your potassium and magnesium are slightly low. Please partake in a diet that includes high potassium and magnesium foods, including bananas, apricots, citrus, spinach. Return to the emergency department for worsening or new concerning symptoms of any sort. Referrals: NUPUR COTE MD [Primary Care Provider] - Follow up as needed
--- NOTE | 2020-09-28 20:54 | RADIOLOGY REPORT (SQ) ---
EXAM DESCRIPTION: CT HEAD WITHOUT IV CONTRAST COMPLETED DATE/TME: 09/28/2020 20:22 CLINICAL HISTORY: 60 years, Female, AMS, new seizure COMPARISON: None. TECHNIQUE: Axial images without IV contrast. Sagittal coronal reconstruction. Images stored on PACS. All CT scanners at this facility use dose modulation, iterative reconstruction, and/or weight based dosing when appropriate to reduce radiation dose to as low as reasonably achievable (ALARA). FINDINGS: Normal size ventricles. No acute intra-axial or extra-axial abnormalities. Borderline enlarged pituitary gland appreciated on sagittal images. Paranasal sinuses, mastoid air cells and bony calvarium are unremarkable. IMPRESSION: 1. Borderline enlarged pituitary gland appreciated on sagittal images. 2. No suspicious intracranial abnormalities. TECHNICAL DOCUMENTATION: Quality ID # 436: Final reports with documentation of one or more dose reduction techniques (e.g., Automated exposure control, adjustment of the mA and/or kV according to patient size, use of iterative reconstruction technique) copyright 2011 [email or web address] [facility] [employer]- All Rights Reserved
[2020-09-28 21:48] LABS: ABSOLUTE LYMPHOCYTES (AUTO) 1.2 10^3/uL (0.5-4.7); ABSOLUTE MONOCYTES (AUTO) 0.8 10^3/uL (0.1-1.4); ABSOLUTE NEUT (AUTO) 10.6 10^3/uL (1.7-8.2); BASOPHILS % (AUTO) 0.4 % (0-2); HEMATOCRIT 36.8 % (36.0-47.0); HEMOGLOBIN 12.7 g/dL (12.0-15.5); LYMPHOCYTES % (AUTO) 9.3 % (13-45); MEAN CORPUSCULAR HEMOGLOBIN 32.2 pg (27.0-33.4); MEAN CORPUSCULAR HGB CONC 34.5 g/dL (32.0-36.0); MEAN CORPUSCULAR VOLUME 93 fl (80-97); PLATELET COUNT 315 10^3/uL (150-450); RED BLOOD COUNT 3.94 10^6/uL (3.72-5.28); RED CELL DISTRIBUTION WIDTH 13.4 % (11.5-14.0); SEGMENTED NEUTROPHILS % (AUTO) 84.3 % (42-78); TOTAL CELLS COUNTED % (AUTO) 100 %; WHITE BLOOD COUNT 12.6 10^3/uL (4.0-10.5)
[2020-09-28 21:59] LABS: APPEARANCE,URINE SLIGHTLY-CLOUDY; BILIRUBIN,URINE NEGATIVE (NEGATIVE); COLOR,URINE YELLOW; GLUCOSE, URINE NEGATIVE (NEGATIVE); KETONES,URINE NEGATIVE (NEGATIVE); LEUKOCYTE ESTERASE,URINE LARGE (NEGATIVE); NITRITE,URINE NEGATIVE (NEGATIVE); PROTEIN,URINE 100 mg/dL (NEGATIVE); UROBILINOGEN,URINE NEGATIVE mg/dL (<2.0)
[2020-09-28 22:10] LABS: URINE AMPHETAMINES SCREEN NEGATIVE; URINE BARBITURATES SCREEN NEGATIVE; URINE BENZODIAZEPINES SCREEN NEGATIVE; URINE COCAINE SCREEN NEGATIVE; URINE METHADONE SCREEN NEGATIVE; URINE PHENCYCLIDINE SCREEN NEGATIVE
[2020-09-28 22:11] LABS: URINE MARIJUANA (THC) SCREEN UNCONFIRMED POSITIVE
[2020-09-28] MEDS ORDERED: LEVETIRACETAM 500 MG TABLET PO ONE (22:14)
[2020-09-28 22:59] VITALS: BP 162/82
== END 2020-09-28 22:59 | disposition home or self-care (01) ==
LOC: ER 17:10
DX: R56.9 Unspecified convulsions (principal); E87.6 Hypokalemia; E83.42 Hypomagnesemia; E86.0 Dehydration; S00.571A Other superficial bite of lip, initial encounter; X58.XXXA Exposure to other specified factors, initial encounter; R51.9 Headache, unspecified; F17.210 Nicotine dependence, cigarettes, uncomplicated; K50.90 Crohn's disease, unspecified, without complications; I12.9 Hypertensive chronic kidney disease with stage 1 through stage 4 chronic kidney disease, or unspecified chronic kidney disease; N18.9 Chronic kidney disease, unspecified; Z93.3 Colostomy status
CPT/HCPCS: 99285; 96361; 96374; 96375; 36415; 80307 ×2; 83735; 85025; 80053; 81001; 70450; J2270; J2405; J7030

== ENCOUNTER 2020-10-09 11:53 | Emergency (ER) | payer MEDICARE, OTHER ==
[2020-10-09 12:44] LABS: ABSOLUTE BASOPHILS # (AUTO) 0.1 10^3/uL (0.0-0.2); ABSOLUTE LYMPHOCYTES (AUTO) 0.7 10^3/uL (0.5-4.7); ABSOLUTE MONOCYTES (AUTO) 0.3 10^3/uL (0.1-1.4); ABSOLUTE NEUT (AUTO) 7.2 10^3/uL (1.7-8.2); BASOPHILS % (AUTO) 1.1 % (0-2); EOSINOPHILS % (AUTO) 0.2 % (0-6); HEMATOCRIT 37.2 % (36.0-47.0); HEMOGLOBIN 12.6 g/dL (12.0-15.5); LYMPHOCYTES % (AUTO) 8.2 % (13-45); MEAN CORPUSCULAR HEMOGLOBIN 32.6 pg (27.0-33.4); MEAN CORPUSCULAR VOLUME 96 fl (80-97); MONOCYTES % (AUTO) 3.8 % (3-13); PLATELET COUNT 372 10^3/uL (150-450); RED BLOOD COUNT 3.88 10^6/uL (3.72-5.28); RED CELL DISTRIBUTION WIDTH 13.8 % (11.5-14.0); SEGMENTED NEUTROPHILS % (AUTO) 86.7 % (42-78); TOTAL CELLS COUNTED % (AUTO) 100 %; WHITE BLOOD COUNT 8.3 10^3/uL (4.0-10.5)
[2020-10-09 12:53] LABS: ALBUMIN 4.3 g/dL (3.5-5.0); ALKALINE PHOSPHATASE 75 U/L (38-126); ANION GAP 14 (5-19); ASPARTATE AMINO TRANSFERASE 33 U/L (14-36); BILIRUBIN,DIRECT 0.3 mg/dL (0.0-0.4); BILIRUBIN,TOTAL 0.5 mg/dL (0.2-1.3); BLOOD UREA NITROGEN 31 mg/dL (7-20); CALCIUM 9.1 mg/dL (8.4-10.2); CARBON DIOXIDE 13 mmol/L (22-30); CHLORIDE 107 mmol/L (98-107); GLUCOSE 220 mg/dL (75-110); TOTAL PROTEIN 8.2 g/dL (6.3-8.2)
[2020-10-09] MEDS ORDERED: NORMAL SALINE 1000 ML 1,000 ML IV ONE ×2 (12:58→16:44)
[2020-10-09] MEDS ORDERED: METOCLOPRAMIDE HCL INJ/PF 10 MG/2 ML SDV IV ONE ×2 (12:58→14:18)
[2020-10-09] MEDS ORDERED: MORPHINE SULFATE 10 MG/ML INJ IV ONE (12:58)
--- NOTE | 2020-10-09 15:09 | RADIOLOGY REPORT (SQ) ---
EXAM DESCRIPTION: CT ABD/PELVIS NO ORAL OR IV IMAGES COMPLETED DATE/TIME: 10/09/2020 2:48 pm REASON FOR STUDY: diffuse pain COMPARISON: 01/28/2020 TECHNIQUE: CT scan of the abdomen and pelvis performed without intravenous or oral contrast. Images reviewed with lung, soft tissue, and bone windows. Reconstructed coronal and sagittal MPR images revi ewed. All images stored on PACS. All CT scanners at this facility use dose modulation, iterative reconstruction, and/or weight based d osing when appropriate to reduce radiation dose to as low as reasonably achievable (ALARA). [facility]: Dose Right [facility]: CareDose [facility]: Dose Right [facility]: Teradose 4D [facility]: [employer] RADIATION DOSE: CT Rad equipment meets quality standard of care and radiation dose reduction techniq ues were employed. CTDIvol: 5.2 mGy. DLP: 255 mGy-cm.mGy. LIMITATIONS: The patient has little intra or retroperitoneal fat which limits evaluation of early in flammatory changes. FINDINGS: LOWER CHEST: Minimal right basilar atelectasis or scar. NON-CONTRASTED LIVER, SPLEEN, ADRENALS: Evaluation limited by lack of IV contrast. No identified sign ificant masses. PANCREAS: No masses. No peripancreatic inflammatory changes. GALLBLADDER: Surgically absent. RIGHT KIDNEY AND URETER: Small right renal cyst is noted. No significant calcifications. No hydro nephrosis or hydroureter. LEFT KIDNEY AND URETER: Numerous small left renal cysts. No significant calcifications. No hydron ephrosis or hydroureter. AORTA AND RETROPERITONEUM: Atherosclerotic change. No aneurysmal dilatation. BOWEL AND PERITONEAL CAVITY: Postsurgical changes with anastomotic line noted in the upper pelvis. M ildly prominent loop of bowel in the colon is again noted and unchanged from January of this year. No obvious inflammatory change. No obstruction or bowel wall thickening is present. APPENDIX: Surgically absent. PELVIS, BLADDER, AND ABDOMINAL WALL:No abnormal masses. No free fluid. Bladder normal. BONES: No significant findings. OTHER: No other significant finding. IMPRESSION: Limited study due to lack of oral IV contrast. The patient has very little intra or ret roperitoneal fat. No evidence of mechanical obstruction. No obvious focal inflammatory changes. COMMENT: Quality ID # 436: Final reports with documentation of one or more dose reduction techniques (e.g., Automated exposure control, adjustment of the mA and/or kV according to patient size, use of iterative reconstruction technique) TECHNICAL DOCUMENTATION: JOB ID: [id number] 2010 [employer] [facility] [employer]- All Rights Reserved Reading location - IP/workstation name: [email or web address]
[2020-10-09 17:45] LABS: APPEARANCE,URINE SLIGHTLY-CLOUDY; BILIRUBIN,URINE NEGATIVE (NEGATIVE); COLOR,URINE YELLOW; GLUCOSE, URINE NEGATIVE (NEGATIVE); KETONES,URINE NEGATIVE (NEGATIVE); LEUKOCYTE ESTERASE,URINE LARGE (NEGATIVE); NITRITE,URINE NEGATIVE (NEGATIVE); PROTEIN,URINE 100 mg/dL (NEGATIVE); URINE SPECIFIC GRAVITY 1.017; UROBILINOGEN,URINE NEGATIVE mg/dL (<2.0)
--- NOTE | 2020-10-09 18:14 | ER Document Report ---
ED General - General Chief Complaint: Vomiting Stated Complaint: VOMITING Time Seen by Provider: 10/09/20 12:22 Primary Care Provider: NUPUR COTE MD [Primary Care Provider] - Follow up as needed Information source: Patient TRAVEL OUTSIDE OF THE [place] IN LAST 30 DAYS: No - HPI Notes: Patient arrives with complaints of some mild diffuse abdominal cramping as well as excessive nausea and vomiting. She states she believes this is due to her Crohn's disease. She states she gets this quite frequently but does not come to the hospital for it and can usually control it at home. She states however today that she was unable to control it with her home medications because she was vomiting them up. She denies any previous history of diabetes. She has had an ileostomy in the past. She states that the symptoms have been constant and severe. Nothing makes it better or worse. The abdominal pain does radiate throughout her abdomen. - Related Data Allergies/Adverse Reactions: No Known Drug Allergies Allergy (Verified 01/26/20 16:43) Past Medical History - General Information source: Patient - Social History Smoking Status: Current Every Day Smoker Chew tobacco use (# tins/day): No Frequency of alcohol use: Occasional Drug Abuse: None Family History: DM, Hypertension Patient has homicidal ideation: No - Past Medical History Cardiac Medical History: Reports: Hx Hypertension Pulmonary Medical History: Denies: Hx Tuberculosis Neurological Medical History: Denies: Hx Seizures Renal/ Medical History: Denies: Hx Peritoneal Dialysis GI Medical History: Reports: Hx Crohn's Disease, Hx Gastroesophageal Reflux Disease. Denies: Hx Hepatitis, Hx Ulcerative Colitis Musculoskeletal Medical History: Denies Hx Fibromyalgia, Denies Hx Gout Skin Medical History: Denies Hx Psoriasis Psychiatric Medical History: Reports: Hx Depression Infectious Medical History: Denies: Hx Hepatitis, Hx MRSA, Hx VRE Past Surgical History: Reports: Hx Abdominal Surgery - colostomy, Hx Appendectomy, Hx Bowel Surgery, Hx Cholecystectomy, Hx Hysterectomy, Hx Ileostomy, Hx Rectal Surgery, Other - colostomy in 2004 then colon resection and ileostomy in 2012 at [facility]. Denies: Hx Pacemaker - Immunizations Hx Diphtheria, Pertussis, Tetanus Vaccination: Yes Review of Systems - Review of Systems Constitutional: Malaise. denies: Chills, Fever Cardiovascular: denies: Chest pain, Palpitations Respiratory: denies: Cough, Short of breath -: Yes All other systems reviewed and negative Physical Exam - Vital signs Vitals: Temp Resp BP Pulse Ox 97.7 F 16 196/102 H 98 10/09/20 12:14 10/09/20 12:14 10/09/20 12:14 10/09/20 12:14 Interpretation: Hypertensive - General General appearance: Alert, Anxious In distress: None - HEENT Head: Normocephalic, Atraumatic Eyes: Normal Pupils: PERRL - Respiratory Respiratory status: No respiratory distress Chest status: Nontender Breath sounds: Normal Chest palpation: Normal - Cardiovascular Rhythm: Regular Heart sounds: Normal auscultation Murmur: No - Abdominal Inspection: Normal Distension: No distension Tenderness: Nontender Organomegaly: No organomegaly Notes: Patient has ileostomy - Back Back: Normal, Nontender - Extremities General upper extremity: Normal inspection, Nontender, Normal color, Normal ROM, Normal temperature General lower extremity: Normal inspection, Nontender, Normal color, Normal ROM, Normal temperature, Normal weight bearing. No: Christo's sign - Neurological Neuro grossly intact: Yes Cognition: Normal Orientation: AAOx4 Chon Coma Scale Eye Opening: Spontaneous Dexter Coma Scale Verbal: Oriented Chon Coma Scale Motor: Obeys Commands Chon Coma Scale Total: 15 Speech: Normal Motor strength normal: LUE, RUE, LLE, RLE Sensory: Normal - Psychological Associated symptoms: Normal affect, Normal mood - Skin Skin Temperature: Warm Skin Moisture: Dry Skin Color: Normal Course - Re-evaluation Re-evalutation: 10/09/20 19:08 Patient has history of Crohn's and a chronic fistula. She presents with dehydration and vomiting. She also has chronic UTIs. After 2 L of fluid medication she states she feels significantly better. Her laboratories are all significantly improved except for a very mild acidosis. However since patient feels better seems reasonable to have the patient discharged. We will give her [address] Cote will see her in the office tomorrow. Given that we currently have a 25% rate of Covid in the hospital and this patient's chronic disease it does not seem prudent to have her admitted. - Vital Signs Vital signs: Temp Pulse Resp BP Pulse Ox 97.7 F 16 196/102 H 98 10/09/20 12:25 10/09/20 12:14 10/09/20 12:14 10/09/20 12:14 - Laboratory Result Diagrams: 10/09/20 12:10 10/09/20 18:24 Laboratory results interpreted by me: 10/09/20 10/09/20 10/09/20 12:10 12:10 17:26 Lymph % (Auto) 8.2 L Seg Neutrophils % 86.7 H VBG pH VBG pCO2 VBG HCO3 Sodium 134.0 L Chloride Carbon Dioxide 13 L BUN 31 H Creatinine 1.86 H Est GFR ( Amer) 33 L Est GFR (MDRD) Non-Af 27 L Glucose 220 H Calcium Lipase 320.1 H Urine Protein 100 H Urine Blood MODERATE H Ur Leukocyte Esterase LARGE H 10/09/20 10/09/20 18:24 18:24 Lymph % (Auto) Seg Neutrophils % VBG pH 7.26 L VBG pCO2 34.8 L VBG HCO3 15.2 L Sodium 136.2 L Chloride 111 H Carbon Dioxide 16 L BUN 26 H Creatinine 1.46 H Est GFR ( Amer) 44 L Est GFR (MDRD) Non-Af 36 L Glucose Calcium 8.2 L Lipase Urine Protein Urine Blood Ur Leukocyte Esterase - Diagnostic Test Radiology reviewed: Image reviewed, Reports reviewed Discharge - Discharge Clinical Impression: Dehydration, Recurrent urinary tract infection UTI (urinary tract infection) Qualifiers: Urinary tract infection type: acute cystitis Hematuria presence: without hematuria Qualified Code(s): N30.00 - Acute cystitis without hematuria Crohns disease Qualifiers: Gastrointestinal tract location: unspecified location Digestive disease complication type: with fistula Qualified Code(s): K50.913 - Crohn's disease, unspecified, with fistula Vomiting Qualifiers: Vomiting type: unspecified Vomiting Intractability: intractable Nausea presence: with nausea Qualified Code(s): R11.2 - Nausea with vomiting, unspecified Condition: Stable Disposition: HOME, SELF-CARE Instructions: Vomiting ([facility]) Additional Instructions: Dr. Cote will see you in the office tomorrow Prescriptions: Ondansetron [Zofran Odt 4 mg Tablet] 1 - 2 tab PO Q4H PRN #15 tab.rapdis PRN Reason: For Nausea/Vomiting Referrals: NUPUR COTE MD [Primary Care Provider] - Follow up tomorrow
[2020-10-09 18:38] LABS: VENOUS BLOOD BASE EXCESS -10.9 mmol/L; VENOUS BLOOD HCO3 15.2 mmol/L (20-32); VENOUS BLOOD PCO2 34.8 mmHg (35-63); VENOUS BLOOD PH 7.26 (7.30-7.42)
[2020-10-09] MEDS ORDERED: CEFTRIAXONE 1 GM/D5W RTU 1 GM/50 ML RTUPB IV ONE (18:42)
[2020-10-09 18:53] LABS: ANION GAP 9 (5-19); BLOOD UREA NITROGEN 26 mg/dL (7-20); CALCIUM 8.2 mg/dL (8.4-10.2); CARBON DIOXIDE 16 mmol/L (22-30); CHLORIDE 111 mmol/L (98-107); GLUCOSE 99 mg/dL (75-110); POTASSIUM 4.7 mmol/L (3.6-5.0)
[2020-10-09 19:29] VITALS: BP 137/97
== END 2020-10-09 19:30 | disposition home or self-care (01) ==
LOC: ER 11:53
DX: N30.00 Acute cystitis without hematuria (principal); K50.913 Crohn's disease, unspecified, with fistula; E86.0 Dehydration; R11.2 Nausea with vomiting, unspecified; R10.9 Unspecified abdominal pain; R53.81 Other malaise; I10 Essential (primary) hypertension
CPT/HCPCS: 99285; 96361; 96375; 96365; 36415; 87040; 83690; 85025; 80053; 81001; 82803; 74176; J2765; J2270; J7030; J0696